=== PATIENT | male | born 1955 | race Caucasian/White ===

== ENCOUNTER → 2016-10-18 | Outpatient (CLI) | payer OTHER ==
[~2016-10-18] VITALS: Ht 162.6 cm; Wt 70.3 kg
[~2016-10-18] MED LIST: /TAMS4CA; ASPI1TAB24 PO; ASPI81TA3; ATOR40TA PO; AVOD0.5C; LEVA250T; LIDOCAINE 2% INJ 100 MG/5 ML SDV (FOR ANES.) As Ordered ONE; MULT1TAB10 PO; NITR0.4S14 SL; NS 1,000 ML IV SCH; PLAV75TA PO; PROPOFOL 200 MG/20 ML VIAL As Ordered ONE; SAW450CA7 PO
--- NOTE | 2016-10-18 08:17 | ROOR ---
Patient Name: Vasiliy Waite Procedure Date: 10/18/2016 7:50 AM Date of : 1955 Age: 61 Room: [facility] Gender: Male Note Status: Finalized Procedure: Colonoscopy Indications: High risk colon cancer surveillance: Personal history of colonic polyps, Last colonoscopy: June 2013 Providers: Gal MCKEON MD Referring MD: Waqar Del Angel MD Requesting Provider: Medicines: Monitored Anesthesia Care Complications: No immediate complications. Procedure: Pre-Anesthesia Assessment: - The heart rate, respiratory rate, oxygen saturations, blood pressure, adequacy of pulmonary ventilation, and response to care were monitored throughout the procedure. The Colonoscope was introduced through the anus and advanced to the terminal ileum, with identification of the appendiceal orifice and IC valve. The colonoscopy was performed without difficulty. The patient tolerated the procedure well. The quality of the bowel preparation was good. Findings: The perianal and digital rectal examinations were normal. (Exam: Complete, Prep: Good or Excellent.) Two sessile polyps were found in the sigmoid colon and at the splenic flexure. The polyps were diminutive in size. These polyps were removed with a cold snare. Resection and retrieval were complete. Multiple medium-mouthed diverticula were found in the sigmoid colon. Internal hemorrhoids were found during retroflexion. The hemorrhoids were moderate. The exam was otherwise without abnormality. Impression: - Two diminutive polyps in the sigmoid colon and at the splenic flexure, removed with a cold snare. Resected and retrieved. - Diverticulosis in the sigmoid colon. - Internal hemorrhoids. - The examination was otherwise normal. Recommendation: - Repeat colonoscopy in 5 years for surveillance. - Resume Plavix (clopidogrel) at prior dose today. Gal Mckeon MD Gal MCKEON MD 10/18/2016 8:16:48 AM This report has been signed electronically. Number of Addenda: 0 Note Initiated On: 10/18/2016 7:50 AM Estimated Blood Loss: Estimated blood loss: none.
[2016-10-18 08:56] VITALS: BP 124/72
== END | disposition home or self-care (01) ==
LOC: M OPP 07:12
PROVIDERS: ATTEND Internal Medicine Gastroenterology
DX: Z12.11 Encounter for screening for malignant neoplasm of colon (principal); D12.5 Benign neoplasm of sigmoid colon; D12.3 Benign neoplasm of transverse colon; K57.30 Diverticulosis of large intestine without perforation or abscess without bleeding; Z79.82 Long term (current) use of aspirin; Z79.899 Other long term (current) drug therapy

== ENCOUNTER → 2017-04-07 | Outpatient (REF) | payer OTHER ==
[~2017-04-07] MED LIST changes: -LIDOCAINE 2% INJ 100 MG/5 ML SDV (FOR ANES.) As Ordered ONE; -NS 1,000 ML IV SCH; -PLAV75TA PO; +PLAV75TA38 PO; -PROPOFOL 200 MG/20 ML VIAL As Ordered ONE
== END ==
LOC: M LAB REF 09:30
DX: N39.0 Urinary tract infection, site not specified (principal)

== ENCOUNTER → 2017-05-01 | Outpatient (REF) | payer OTHER ==
[~2017-05-01] MED LIST changes: +ASPI-161 PO; -ASPI1TAB24 PO; -ATOR40TA PO; +ATOR40TA75 PO; +PLAV1TAB2 PO; -PLAV75TA38 PO; +SAW450CA2 PO; -SAW450CA7 PO
[2017-05-01 12:15] LABS: MEAN CORPUSCULAR HEMOGLOBIN 31.5 pg (27.0-33.0); MEAN CORPUSCULAR HGB CONC 33.4 g/dl (32.0-36.5); MEAN CORPUSCULAR VOLUME 94.3 fl (80.0-96.0); RED CELL DISTRIBUTION WIDTH 12.8 % (11.5-14.5); WHITE BLOOD COUNT 4.5 K/mm3 (4.0-10.0)
[2017-05-01 13:21] LABS: ALBUMIN 3.6 GM/DL (3.2-5.2); ALBUMIN/GLOBULIN RATIO 1.44 (1.00-1.93); ALKALINE PHOSPHATASE 60 U/L (45-117); ALT/SGPT 30 U/L (12-78); ANION GAP 7 MEQ/L (8-16); AST/SGOT 21 U/L (15-37); BILIRUBIN,TOTAL 0.5 MG/DL (0.2-1.0); BLOOD UREA NITROGEN 16 MG/DL (7-18); CALCIUM LEVEL 8.8 MG/DL (8.8-10.2); CARBON DIOXIDE LEVEL 28 MEQ/L (21-32); CHLORIDE LEVEL 109 MEQ/L (98-107); CHOLESTEROL LEVEL 107 MG/DL (<200); CREATININE FOR GFR 1.02 MG/DL (0.70-1.30); GLOMERULAR FILTRATION RATE > 60.0 (>49); GLUCOSE, FASTING 101 MG/DL (80-110); POTASSIUM SERUM 4.5 MEQ/L (3.5-5.1); SODIUM LEVEL 144 MEQ/L (136-145); TOTAL PROTEIN 6.1 GM/DL (6.4-8.2); TRIGLYCERIDES LEVEL 39 MG/DL (<150)
== END ==
LOC: M SFHCPLAZ 08:32
PROVIDERS: ATTEND Internal Medicine
DX: I25.10 Atherosclerotic heart disease of native coronary artery without angina pectoris (principal); E78.2 Mixed hyperlipidemia

== ENCOUNTER → 2017-05-01 | Outpatient (REF) | payer OTHER | LOC: M LABDRAWP 12:16 | PROVIDERS: ATTEND Urology | DX: N40.1 Benign prostatic hyperplasia with lower urinary tract symptoms (principal) ==

== ENCOUNTER → 2017-08-01 | Outpatient (REF) | payer OTHER | LOC: M LABDRAWC 11:16 | PROVIDERS: ATTEND Urology | DX: R97.20 Elevated prostate specific antigen [PSA] (principal) ==

== ENCOUNTER → 2018-05-13 | Outpatient (REF) | payer MEDICARE, OTHER ==
[2018-05-13 11:41] LABS: HEMATOCRIT 39.4 % (42.0-52.0); HEMOGLOBIN 13.1 g/dl (13.5-17.5); MEAN CORPUSCULAR HEMOGLOBIN 31.2 pg (27.0-33.0); MEAN CORPUSCULAR HGB CONC 33.2 g/dl (32.0-36.5); MEAN CORPUSCULAR VOLUME 93.8 fl (80.0-96.0); PLATELET COUNT, AUTOMATED 167 10^3/uL (150-450); RED CELL DISTRIBUTION WIDTH 13.2 % (11.5-14.5); WHITE BLOOD COUNT 7.9 10^3/uL (4.0-10.0)
[2018-05-13 11:58] LABS: ALBUMIN 3.4 GM/DL (3.2-5.2); ALBUMIN/GLOBULIN RATIO 1.17 (1.00-1.93); ALKALINE PHOSPHATASE 57 U/L (45-117); ALT/SGPT 25 U/L (12-78); ANION GAP 6 MEQ/L (8-16); AST/SGOT 17 U/L (7-37); BILIRUBIN,TOTAL 0.7 MG/DL (0.2-1.0); BLOOD UREA NITROGEN 17 MG/DL (7-18); CALCIUM LEVEL 8.3 MG/DL (8.8-10.2); CARBON DIOXIDE LEVEL 28 MEQ/L (21-32); CHLORIDE LEVEL 110 MEQ/L (98-107); CHOLESTEROL LEVEL 115 MG/DL (<200); CHOLESTEROL RISK RATIO 1.982 (<5); CREATININE FOR GFR 0.87 MG/DL (0.70-1.30); GLOMERULAR FILTRATION RATE > 60.0 (>49); GLUCOSE, FASTING 94 MG/DL (70-100); HDL CHOLESTEROL 58 MG/DL (>40); NON-HDL-C 57 MG/DL; POTASSIUM SERUM 4.3 MEQ/L (3.5-5.1); SODIUM LEVEL 144 MEQ/L (136-145); TOTAL PROTEIN 6.3 GM/DL (6.4-8.2); TRIGLYCERIDES LEVEL 45 MG/DL (<150)
== END ==
LOC: M SFHCCLAY 07:52
DX: N41.1 Chronic prostatitis (principal); I25.10 Atherosclerotic heart disease of native coronary artery without angina pectoris; E78.2 Mixed hyperlipidemia; R97.20 Elevated prostate specific antigen [PSA]
CPT/HCPCS: 80053

== ENCOUNTER → 2018-05-13 | Outpatient (REF) | payer MEDICARE, OTHER ==
[2018-05-13 12:04] LABS: PROSTATIC SPECIFIC AG MONITOR 2.91 NG/ML (< 4.0)
== END ==
LOC: M LABDRAWC 11:32
DX: R97.20 Elevated prostate specific antigen [PSA] (principal)

== ENCOUNTER → 2019-05-11 | Outpatient (REF) | payer MEDICARE, OTHER ==
[~2019-05-11] MED LIST changes: -/TAMS4CA; +FLOM0.4C39
[2019-05-11 11:29] LABS: HEMATOCRIT 43.2 % (42.0-52.0); HEMOGLOBIN 13.8 g/dl (13.5-17.5); MEAN CORPUSCULAR HEMOGLOBIN 30.5 pg (27.0-33.0); MEAN CORPUSCULAR HGB CONC 31.9 g/dl (32.0-36.5); MEAN CORPUSCULAR VOLUME 95.6 fl (80.0-96.0); PLATELET COUNT, AUTOMATED 195 10^3/uL (150-450); RED BLOOD COUNT 4.52 10^6/uL (4.30-6.10); WHITE BLOOD COUNT 4.7 10^3/uL (4.0-10.0)
[2019-05-11 11:38] LABS: ALBUMIN 3.7 GM/DL (3.2-5.2); ALT/SGPT 26 U/L (12-78); BILIRUBIN,TOTAL 0.5 MG/DL (0.2-1.0); BLOOD UREA NITROGEN 22 MG/DL (7-18); CALCIUM LEVEL 8.8 MG/DL (8.8-10.2); CARBON DIOXIDE LEVEL 31 MEQ/L (21-32); CHLORIDE LEVEL 109 MEQ/L (98-107); CHOLESTEROL LEVEL 126 MG/DL (<200); CHOLESTEROL RISK RATIO 2.172 (<5); GLOMERULAR FILTRATION RATE > 60.0 (>49); GLUCOSE, FASTING 102 MG/DL (70-100); HDL CHOLESTEROL 58 MG/DL (>40); LDL CHOLESTEROL 60 MG/DL (<100); MAGNESIUM LEVEL 2.4 MG/DL (1.8-2.4); NON-HDL-C 68 MG/DL; POTASSIUM SERUM 5.1 MEQ/L (3.5-5.1); SODIUM LEVEL 143 MEQ/L (136-145); TOTAL PROTEIN 6.4 GM/DL (6.4-8.2); TRIGLYCERIDES LEVEL 40 MG/DL (<150)
== END ==
LOC: M SFHCCLAY 07:41
PROVIDERS: ATTEND Internal Medicine
DX: N41.1 Chronic prostatitis (principal); I25.10 Atherosclerotic heart disease of native coronary artery without angina pectoris; E78.2 Mixed hyperlipidemia; R97.20 Elevated prostate specific antigen [PSA]

== ENCOUNTER → 2019-05-11 | Outpatient (REF) | payer MEDICARE, OTHER | LOC: M LABDRAWC 11:27 | PROVIDERS: ATTEND Urology | DX: R97.20 Elevated prostate specific antigen [PSA] (principal) ==

== ENCOUNTER → 2020-05-18 | Outpatient (REF) | payer MEDICARE, OTHER | LOC: M LABDRAWC 09:36 | PROVIDERS: ATTEND Urology | DX: R97.20 Elevated prostate specific antigen [PSA] (principal) ==

== ENCOUNTER → 2020-05-23 | Outpatient (REF) | payer MEDICARE, OTHER ==
[2020-06-25 11:10] LABS: BASO # 0.1 10^3/uL (0.0-0.2); BASO % 0.6 % (0.0-1.0); EOS # 0.3 10^3/uL (0.0-0.5); EOS % 3.3 % (0.0-3.0); HEMATOCRIT 39.6 % (42.0-52.0); HEMOGLOBIN 13.5 g/dl (13.5-17.5); LYMPH # 2.3 10^3/uL (1.5-5.0); LYMPH % 23.4 % (24.0-44.0); MEAN CORPUSCULAR HEMOGLOBIN 32.9 pg (27.0-33.0); MEAN CORPUSCULAR HGB CONC 34.1 g/dl (32.0-36.5); MEAN CORPUSCULAR VOLUME 96.6 fl (80.0-96.0); NEUTROPHILS % 62.1 % (36.0-66.0); PLATELET COUNT, AUTOMATED 277 10^3/uL (150-450); WHITE BLOOD COUNT 9.6 10^3/uL (4.0-10.0)
[2020-07-07 15:03] LABS: ALBUMIN 3.8 GM/DL (3.2-5.2); ALT/SGPT 30 U/L (12-78); BILIRUBIN,TOTAL 0.6 MG/DL (0.2-1.0); BLOOD UREA NITROGEN 20 MG/DL (7-18); CARBON DIOXIDE LEVEL 28 MEQ/L (21-32); CHLORIDE LEVEL 110 MEQ/L (98-107); CHOLESTEROL LEVEL 136 MG/DL (<200); CHOLESTEROL RISK RATIO 2.229 (<5); CREATININE FOR GFR 0.99 MG/DL (0.70-1.30); GLOMERULAR FILTRATION RATE > 60.0 (>49); GLUCOSE, FASTING 84 MG/DL (70-100); HDL CHOLESTEROL 61 MG/DL (>40); LDL CHOLESTEROL 66 MG/DL (<100); NON-HDL-C 75 MG/DL; POTASSIUM SERUM 4.8 MEQ/L (3.5-5.1); SODIUM LEVEL 143 MEQ/L (136-145); TOTAL PROTEIN 6.5 GM/DL (6.4-8.2); TRIGLYCERIDES LEVEL 43 MG/DL (<150)
== END ==
LOC: M SFHCPLAZ 16:25
PROVIDERS: ATTEND Internal Medicine
DX: E78.2 Mixed hyperlipidemia (principal); I25.10 Atherosclerotic heart disease of native coronary artery without angina pectoris; Z86.010 Personal history of colon polyps
CPT/HCPCS: 36415; 80053; 80061; 84443; 85025; G0463

== ENCOUNTER → 2020-12-05 | Outpatient (REF) | payer MEDICARE, OTHER ==
[2020-12-05 16:32] LABS: APPEARANCE, URINE CLOUDY (CLEAR); BACTERIA, URINE AUTO 2+ (NEGATIVE); BILIRUBIN, URINE AUTO NEGATIVE (NEGATIVE); BLOOD, URINE BLOOD 1+ (NEGATIVE); COLOR, URINE AMBER (YELLOW); GLUCOSE, URINE (UA) AUTO NEGATIVE (NEGATIVE); KETONE, URINE AUTO NEGATIVE (NEGATIVE); LEUKOCYTE ESTERASE, URINE AUTO 3+ (NEGATIVE); MUCUS, URINE SMALL (NEGATIVE); NITRITE, URINE AUTO POSITIVE (NEGATIVE); PROTEIN, URINE AUTO 3+ mg/dL (NEGATIVE); RBC, URINE AUTO 17 /HPF (0-3); SPECIFIC GRAVITY URINE AUTO 1.024 (1.002-1.035); SQUAMOUS EPITHELIAL CELL UR AU 0 /HPF (0-6); UROBILINOGEN, URINE AUTO 0.2 mg/dL (0.0-2.0); WBC, URINE AUTO 125 /HPF (0-3)
== END ==
LOC: M SFHCPLAZ 10:58
PROVIDERS: ATTEND Internal Medicine
DX: R30.0 Dysuria (principal)

== ENCOUNTER → 2021-05-15 | Outpatient (REF) | payer MEDICARE, OTHER ==
[~2021-05-15] MED LIST changes: +AMLO2.5T3 PO
[2021-05-15 12:17] LABS: BASO % 0.2 % (0.0-1.0); EOS # 0.1 10^3/uL (0.0-0.5); HEMATOCRIT 42.8 % (42.0-52.0); HEMOGLOBIN 14.2 g/dl (13.5-17.5); LYMPH # 1.5 10^3/uL (1.5-5.0); LYMPH % 29.9 % (24.0-44.0); MEAN CORPUSCULAR HEMOGLOBIN 30.9 pg (27.0-33.0); MEAN CORPUSCULAR HGB CONC 33.2 g/dl (32.0-36.5); MEAN CORPUSCULAR VOLUME 93.2 fl (80.0-96.0); MONO # 0.4 10^3/uL (0.0-0.8); MONO % 8.7 % (2.0-8.0); PLATELET COUNT, AUTOMATED 215 10^3/uL (150-450); RED BLOOD COUNT 4.59 10^6/uL (4.30-6.10); WHITE BLOOD COUNT 4.9 10^3/uL (4.0-10.0)
[2021-05-15 12:45] LABS: ALBUMIN 3.8 GM/DL (3.2-5.2); ALT/SGPT 26 U/L (12-78); BILIRUBIN,TOTAL 0.6 MG/DL (0.2-1.0); BLOOD UREA NITROGEN 21 MG/DL (7-18); CARBON DIOXIDE LEVEL 25 MEQ/L (21-32); CHLORIDE LEVEL 111 MEQ/L (98-107); CHOLESTEROL LEVEL 144 MG/DL (<200); CHOLESTEROL RISK RATIO 2.285 (<5); CREATININE FOR GFR 0.74 MG/DL (0.70-1.30); GLOMERULAR FILTRATION RATE > 60.0 (>49); GLUCOSE, FASTING 99 MG/DL (70-100); HDL CHOLESTEROL 63 MG/DL (>40); LDL CHOLESTEROL 69 MG/DL (<100); MAGNESIUM LEVEL 2.4 MG/DL (1.8-2.4); NON-HDL-C 81 MG/DL; SODIUM LEVEL 143 MEQ/L (136-145); TOTAL PROTEIN 6.5 GM/DL (6.4-8.2); TRIGLYCERIDES LEVEL 59 MG/DL (<150)
== END ==
LOC: M SFHCCLAY 08:04
PROVIDERS: ATTEND Internal Medicine
DX: I25.10 Atherosclerotic heart disease of native coronary artery without angina pectoris (principal); E78.2 Mixed hyperlipidemia; Z86.010 Personal history of colon polyps

== ENCOUNTER → 2021-05-15 | Outpatient (REF) | payer MEDICARE, OTHER ==
[~2021-05-15] MED LIST changes: -AMLO2.5T3 PO
== END ==
LOC: M LABDRAWC 11:16
PROVIDERS: ATTEND Urology
DX: Z12.5 Encounter for screening for malignant neoplasm of prostate (principal); E78.00 Pure hypercholesterolemia, unspecified
CPT/HCPCS: 36415; 80053; 80061; 83735; 85025; G0103

== ENCOUNTER → 2021-06-14 | Outpatient (REF) | payer MEDICARE, OTHER ==
[~2021-06-14] MED LIST changes: +AMLO2.5T3 PO
== END ==
LOC: M LABDRAWC 10:11
PROVIDERS: ATTEND Urology
DX: R97.20 Elevated prostate specific antigen [PSA] (principal)

== ENCOUNTER → 2021-07-24 | Outpatient (CLI) | payer MEDICARE, OTHER ==
[~2021-07-24] MED LIST changes: -AMLO2.5T3 PO
--- NOTE | 2021-07-24 09:23 | REP ---
INDICATION: FUSION 1ST MTP R FOOT COMPARISON: 02/12/2014 TECHNIQUE: PA and lateral. FINDINGS: The mediastinum and cardiac silhouette are normal. The lung cardozo are clear and without acute consolidation, effusion, or pneumothorax. The skeletal structures are intact and normal. IMPRESSION: No acute cardiopulmonary process. <Electronically signed by Adalberto Neff > 07/24/21 0919
[2021-07-24 11:59] LABS: BASO % 0.2 % (0.0-1.0); EOS # 0.1 10^3/uL (0.0-0.5); EOS % 1.3 % (0.0-3.0); HEMATOCRIT 42.2 % (42.0-52.0); HEMOGLOBIN 13.6 g/dl (13.5-17.5); LYMPH # 1.5 10^3/uL (1.5-5.0); LYMPH % 28.4 % (24.0-44.0); MEAN CORPUSCULAR HEMOGLOBIN 31.1 pg (27.0-33.0); MEAN CORPUSCULAR HGB CONC 32.2 g/dl (32.0-36.5); MEAN CORPUSCULAR VOLUME 96.6 fl (80.0-96.0); MONO # 0.4 10^3/uL (0.0-0.8); MONO % 7.1 % (2.0-8.0); NEUTROPHILS # 3.3 10^3/uL (1.5-8.5); NEUTROPHILS % 62.6 % (36.0-66.0); PLATELET COUNT, AUTOMATED 223 10^3/uL (150-450); RED BLOOD COUNT 4.37 10^6/uL (4.30-6.10); WHITE BLOOD COUNT 5.2 10^3/uL (4.0-10.0)
[2021-07-24 13:06] LABS: ALBUMIN 3.5 GM/DL (3.2-5.2); ALT/SGPT 36 U/L (12-78); BILIRUBIN,TOTAL 0.5 MG/DL (0.2-1.0); BLOOD UREA NITROGEN 20 MG/DL (7-18); CALCIUM LEVEL 9.1 MG/DL (8.8-10.2); CARBON DIOXIDE LEVEL 30 MEQ/L (21-32); CHLORIDE LEVEL 109 MEQ/L (98-107); CREATININE FOR GFR 0.99 MG/DL (0.70-1.30); GLOMERULAR FILTRATION RATE > 60.0 (>49); GLUCOSE, FASTING 91 MG/DL (70-100); POTASSIUM SERUM 4.1 MEQ/L (3.5-5.1); SODIUM LEVEL 143 MEQ/L (136-145); TOTAL PROTEIN 6.3 GM/DL (6.4-8.2)
== END ==
LOC: M CLY 08:50
PROVIDERS: ATTEND Podiatrist
DX: Z01.818 Encounter for other preprocedural examination (principal); M20.21 Hallux rigidus, right foot; M79.671 Pain in right foot

== ENCOUNTER → 2021-07-30 | Outpatient (CLI) | payer MEDICARE, OTHER ==
[~2021-07-30] MED LIST changes: +AMLO2.5T3 PO
== END ==
LOC: M LABSMTC 09:18
PROVIDERS: ATTEND Anesthesiology
DX: Z01.818 Encounter for other preprocedural examination (principal); Z11.52 Encounter for screening for COVID-19

== ENCOUNTER → 2021-08-01 | Outpatient (REF) | payer MEDICARE, OTHER | LOC: M LABDRAWC 11:20 | PROVIDERS: ATTEND Physician Assistant | DX: R97.20 Elevated prostate specific antigen [PSA] (principal) ==

== ENCOUNTER 2021-08-03 08:32 | Day surgery (SDC) | payer MEDICARE, OTHER ==
[~2021-08-03] VITALS: Ht 162.6 cm; Wt 76.7 kg
[~2021-08-03 08:32] MED LIST changes: +KETOROLAC 60MG 2ML VIAL As Ordered ONE; +LIDOCAINE 1% MDV 20ML VIAL SQ PRN; +LIDOCAINE 2% 100MG/5ML SDV (FOR ANES.) As Ordered ONE; +LR 1,000 ML IV ONE; +MIDAZOLAM INJ 2MG/2ML VIAL (J2250 PER 1MG) As Ordered ONE; +ONDANSETRON 4MG/2ML VIAL As Ordered ONE; +ceFAZolin SOD 2 GM in IV 1 EA IV ONE; +fentaNYL 100 MCG/2 ML INJECTION (J3010) As Ordered ONE; +propofoL 200 MG/20 ML VIAL As Ordered ONE
--- OUTSIDE RECORDS SUMMARY | 2021-08-03 08:36 | CCD ---
Author Author [employer] [facility] Organization [facility] Address Unknown Phone Unavailable Care Team Providers Care Commission Specialist Name Role Phone Kali Whitlock Unavailable PROBLEMS Type Condition ICD9-CM Code [id number] Code Onset Dates Condition S tatus W/U Status Risk SNOMED Code Notes Problem Chronic prostatitis N41.1 Active confirmed [id number] This is followed by a urologist. Had an Enterococcus faecalis UTI in 06/2012. He had a cystoscopy in 02/2017. He is on Rapaflo now. He has an upcoming urology visit in May 2021. His PSA is intermittently elevated likely because of his episodic prostatitis, most recently over 3 in May 2021. Problem Mixed hyperlipidemia E78.2 Active confirmed [id number] He has been on a statin since his RI in 02/2014. Lipids were optimal in May 2021. He is on a moderately high intensity statin. Problem History of adenomatous polyp of colon Z86.010 Ac tive confirmed [id number] He had a colonoscopy in June 2013 and in 10/2016. Had an adenomatous polyp each time. Problem CAD (coronary artery disease) I25.10 Active confirm ed [id number] Patient had an anterior wall myocardial infarction 02/2014 which was successfully treated with thrombolytic therapy. He has had 2 LAD drug eluting stents placed in a 99% proximal lesion and a 60% ostial lesion. There was minor disease in the circumflex and PDA. Left ventricular ejection fraction was 40% with some anterior hypokinesis at the time of his catheterization February 14, 2014. He had a cardiac catheterization for a left arm pain in 12/2020--no intervention done and he had amlodipine added to his regimen. He had a followup stress test after the heart cath, results, N/A; prior stress test was in 11/2015 and revealed a left ventricle ejection fraction of 51% with minimal if any reversible ischemia. He has no residual angina and is now on aspirin, statin therapy and ARB theraoy, appropriately; his beta josr was stopped in 08/2015 due to low heart rate, and Plavix was stopped in Spring 2016. ALLERGIES Allergen (clinical drug ingredient) Drug/Non Drug Allergy do cumented on EMR Reaction Allergy Type Onset Date Status sulfamethoxazole / trimethoprim Bactrim([facility] Code:[address]-48) Anaphylaxis Drug Allergy Active ENCOUNTERS from 1955 to 2021-07-24 Encounter Location Date Provider Diagnosis [facility] Franky Mojica [phone] [place] [address] 08 Jul, 2021 Kali Huizenga Cough R05.9 and Acute non-recurrent maxi llary sinusitis J01.00 IMMUNIZATIONS Vaccine Route Administration Date Status Influenza 18 yrs & older Flublok IM Intramuscular Jul 19, 2020 Administered Zoster 50mcg/0.5mL Shingrix Unknown Dec 01, 2019 Admi nistered Zoster 50mcg/0.5mL Shingrix Unknown Aug 04, 2019 Admi nistered Influenza (High Dose 65 & up) Unknown Jul 25, 2018 Ad ministered Zoster 0.65mL Zostavax Unknown February 18, 2017 Administe red Pneumococcal Adult 0.5mL Pneumovax 23 IM Intramuscular May 19 019 Administered Influenza Pharmacy Given Unknown Aug 04, 2019 Adminis tered Pneumococcal 0.5mL Prevnar 13 IM Intramuscular May 18, 2018 A dministered COVID-19 dose #1 given elsewhere Unspecified Unknown Nov 11, 2020 Administered Influenza 6mo & up Fluzone Unknown Jul 22, 2017 Admin istered COVID-19 dose #2 given elsewhere Unspecified Unknown Dec 02, 2020 Administered Influenza 6mo & up Fluzone Unknown Jul 15, 2015 Admin istered SOCIAL HISTORY Tobacco Use: Social History Observation Description Date Details (start date - stop date) Never Smoker Sex Assigned At : Social History Observation Description Sex Assigned At Unknown Audit Question Answer Notes Total Score: 0 Interpretation: Alcohol Education Domestic Violence: Question Answer Notes Status: Sexual Hx: Question Answer Notes Had sex in the last 12 months (vaginal, oral, or anal)? Yes Have you ever had an STD? No with Women only Drug and Alcohol Question Answer Notes Total Score: 0 Interpretation: No problems reported Tobacco Use: Question Answer Notes Are you a: never smoker never smoker REASON FOR REFERRAL No Information VITAL SIGNS Weight 169.8 lbs Jul, Weight-kg 77.02 kg Jul, Height 64.5 in Jul, BMI 28.69 kg/m2 Jul, Heart Rate 54 /min Jul, Respiratory Rate 16 /min Jul, Temperature 98.3 degrees Fahrenheit Jul, Oximetry 98ra Jul, Blood pressure systolic 128 mm Hg Jul, Blood pressure diastolic 68 mm Hg Jul, MEDICATIONS Medication SIG (Take, Route, Frequency, Duration) Notes Start Da te End Date Status amLODIPine Besylate 2.5 MG 1 tablet Orally Daily Active Amoxicillin 875 MG 1 tablet Orally Twice a day for 10 day(s) Jul, Active Probiotic - 1 tab Orally Daily Activ e Nitroglycerin 0.4 MG 1 spray under the tongue Sub lingual every 5 mins for 3 doses as needed for chest pain A ctive Benzonatate 100 MG 1 capsule as needed Orally Three times a day for 10 day(s) Jul, Active Lipitor 40 mg 1 tablet Orally Once a day Active Aspirin 81 MG 1 tablet Orally Once a day Active Rapaflo 8 MG 1 capsule with a meal Orally Once a day Active Multiple Vitamin _ 1 tablet Orally Once a day Active PROCEDURES No Information RESULTS Component Value Reference Range Kii[facility] AG (Point of Care) Reviewed date:07/20/2021 12:53:13 Interpretation: Performing Lab:[facility] [place], [place] [address] MARCELINA COVID ANTIGEN negative REASON FOR VISIT Patient c/o watery eyes, sinus congestion x 3 days- denies fever. Patient has up coming surgery in a few weeks and is concerned. No known sick contacts, he has h ad Covid vaccine and is scheduled to get booster next week MEDICAL (GENERAL) HISTORY Type Description Date Medical History CAD (coronary artery disease) Medical History Chronic prostatitis Medical History History of adenomatous polyp of colon Medical History Mixed hyperlipidemia Surgical History TURP 03/2008 Surgical History Left foot surgery, 1st MTP joint 12/2009 Surgical History Colonoscopy 06/2013 Surgical History Coronary artery stent placem ent x2, after reperfusion therapy following RI 02/2014 Surgical History Colonoscopy with polypectomy 10/2016 Surgical History Cystoscopy-AMP Urology 02/2017 Surgical History Cardiac catheterization with no interven tion 12/2020 Goals Section No Information Health Concerns No Information MEDICAL EQUIPMENT No Information MENTAL STATUS No Information FUNCTIONAL STATUS No Information ASSESSMENTS Encounter Date Diagnosis Assessment Notes Treatment Notes Treatm ent Clinical Notes Jul, Acute non-recurrent maxillary sinusitis (ICD-10 - J01.00) Jul, Cough (ICD-10 - R05.9) Negative so will tx symptomatically. Pt is agreeable. PLAN OF TREATMENT Medication Medication Name Sig Start Date Stop Date Amoxicillin 875 MG 1 tablet Orally Twice a day for 10 day(s) Jul, Benzonatate 100 MG 1 capsule as needed Orally Three times a day for 10 day(s) Jul, Treatment Notes Assessment Notes Clinical Notes Cough Negative so will tx symptomatically. Pt is agreeable. Next Appt Details prn Reason: Insurance Providers Payer Name Payer Address Payer Phone Insured Name Patient Relati onship to Insured Coverage Start Date Coverage End Date [facility] [address] [address] [facility] [phone] VIKA MONSIVAIS [id number] MEDICARE Part A and B [address] [facility] [address] [phone] VIKA MONSIVAIS self
--- OUTSIDE RECORDS SUMMARY | 2021-08-03 08:36 | CCD ---
Author Author [employer] [facility] Organization [facility] Address Unknown Phone Unavailable Care Team Providers Care Nitro Worker Name Role Phone Waqar Del Angel Unavailable PROBLEMS Type Condition ICD9-CM Code [id number] Code Onset Dates Condition S tatus W/U Status Risk SNOMED Code Notes Problem Chronic prostatitis N41.1 Active confirmed [id number] This is followed by a urologist. Had an Enterococcus faecalis UTI in 06/2012. He had a cystoscopy in 02/2017. He is on Rapaflo now. He has an upcoming urology visit in May 2021. His PSA is intermittently elevated likely because of his episodic prostatitis, most recently over 3 in May 2021. Problem Mixed hyperlipidemia E78.2 Active confirmed [id number] He has been on a statin since his [place] in 02/2014. Lipids were optimal in May 2021. He is on a moderately high intensity statin. Problem History of adenomatous polyp of colon Z86.010 Ac tive confirmed [id number] He had a colonoscopy in June 2013 and in 10/2016. Had an adenomatous polyp each time. Problem CAD (coronary artery disease) I25.10 Active confirm ed [id number] Patient had an anterior wall myocardial infarction [...] Plavix was stopped in Spring 2016. ALLERGIES No Known Allergies ENCOUNTERS from 1955 to 2021-07-20 Encounter Location Date Provider Diagnosis [facility] [address] [facility] [phone] [place] [address] Jul, 2021 Waqar [facility] IMMUNIZATIONS Vaccine Route Administration Date Status Influenza [...] REASON FOR REFERRAL No Information VITAL SIGNS No information MEDICATIONS Medication SIG (Take, Route, Frequency, Duration) Notes Start Da te End Date Status Nitroglycerin 0.4 MG 1 spray under the tongue Sub lingual every 5 mins for 3 doses as needed for chest pain A ctive Rapaflo 8 MG 1 capsule with a meal Orally Once a day Active Aspirin 81 MG 1 tablet Orally Once a day Active Multiple Vitamin _ 1 tablet Orally Once a day Active amLODIPine Besylate 2.5 MG 1 tablet Orally Daily Active Probiotic - 1 tab Orally Daily Activ e Lipitor 40 mg 1 tablet Orally Once a day Active PROCEDURES No Information RESULTS No Results REASON FOR VISIT head cold MEDICAL (GENERAL) HISTORY Type Description Date Medical History CAD (coronary artery disease) Medical History Chronic prostatitis Medical History History of adenomatous polyp of colon Medical History Mixed hyperlipidemia Surgical History TURP 03/2008 Surgical History Left foot surgery, 1st MTP joint 12/2009 Surgical History Colonoscopy 06/2013 Surgical History Coronary artery stent placem ent x2, after reperfusion therapy following MA 02/2014 Surgical History Colonoscopy with polypectomy 10/2016 Surgical History Cystoscopy-AMP Urology 02/2017 Surgical History Cardiac catheterization with no interven tion 12/2020 Goals Section No Information Health Concerns No Information MEDICAL EQUIPMENT No Information MENTAL STATUS No Information FUNCTIONAL STATUS No Information ASSESSMENTS No Information PLAN OF TREATMENT Next Appt Details Provider Name:Kaligael Whitlock, 10:30:00 AM, [address] , , [place], [address], Insurance Providers Payer Name Payer Address Payer Phone Insured Name Patient Relati onship to Insured Coverage Start Date Coverage End Date MEDICARE Part A and B [address] [facility] [phone] VIKA MONSIVAIS [facility] [address] [address] [facility] [phone] VIKA MONSIVAIS [id number]
--- OUTSIDE RECORDS SUMMARY | 2021-08-03 08:36 | CCD | Continuity of Care Document ---
Author Author Vasiliy BARAKAT [place] Organization Unknown Address [address] [place] [address] DR. Sudha green [address] [place] [address] Phone [phone] Care Team Providers Care Sander And Polisher Name Role Phone Waqar Del Angel M.D. AUTM [phone] Problems Active Problems Provider Date Benign prostatic hyperplasia with outflow obstruction Ilan Dyer MD Onset: 02/13/2012 Prostatitis Ilan Dyer MD Onset: 02/13/2012 Screening for malignant neoplasm of prostate Ilan rasmussen MD Onset: 02/13/2012 Retention of urine Ilan Dyer MD Onset: 02/19/2013 Urinary tract infectious disease Ilan Dyer MD Onse t: 02/20/2017 Raised prostate specific antigen Ilan Dyer MD Onse t: 05/13/2017 Nocturia Ilan Dyer MD Onset: 05/25/2019 Social History Type Date Description Comments Sex Male Tobacco Use Reviewed: 05/25/20 Never Smoked Cigarettes Smoking Status Reviewed: 07/06/21 Never Smoked Cigarettes ETOH Use Patient denies alcohol use Allergies and adverse reactions Active Allergies Criticality Reaction | Severity Comments Date Bactrim Unable to assess criticality Facial swelling | Moderat e 06/04/2021 Sulfa Unable to assess criticality Facial swel ling, cause tongue & mouth to swell 07/06/2021 Inactive Allergies NKDA Unable to assess criticality 01/08/2011 Medications Active Medications SIG Qnty Indications Ordering Provide r Date Ciprofloxacin HCL 250mg Tablets 1 by mouth twice a day x 10 days 20tabs N41.9 Ilan Dyer MD Silodosin 8mg Capsules Take 1 Capsule Daily After Dinner 90caps SRAVANTHI Escamilla 05/22/2020 Probiotic Daily Capsules 1 by mouth every day 30caps Z87.440 Maurice Ugalde MD 7 Multivitamins Tablets daily Unknown Aspirin 81mg Tablets daily 30tabs Unknown Atorvastatin Calcium 40mg Tablets qd Unknown Nitroglycerin 0.4mg sublingu al prn Unknown Amlodipine Besylate 2.5mg Tablets qd Unknown History Medications Cephalexin 250mg Capsules take 1 capsule (250 mg total) by mouth 2 times a day for 7 days 14caps Ilan Dyer MD 06/04/2021 - 06/19/2021 Bactrim DS 800-160mg Tablets 1 by mouth twice a day 14tabs Ilan Dyer MD 1 - 06/04/2021 Immunizations Description No Information Available Vital Signs Date Vital Result Comment 07/06/2021 1:16pm Height 64 inches 5'4" Weight 160.00 lb Weight 72.576 kg BMI (Body Mass Index) 27.5 kg/m2 BP Systolic 137 mmHg BP Diastolic 68 mmHg Heart Rate 58 /min Post Void Residual ml 297 Bladder Scanner 06/20/2021 10:03am Height 64 inches 5'4" Weight 160.00 lb Weight 72.576 kg BMI (Body Mass Index) 27.5 kg/m2 BP Systolic 137 mmHg BP Diastolic 81 mmHg Heart Rate 58 /min Results Test Acquired Date Facility Test Result H/L Range Note Laboratory test finding 07/06/2021 [facility] [address] [address] [phone] Urine Culture <pending> 230 Ua Routine 07/06/2021 [facility] REF TO DR ADDRESS ON ORDER FOR (411)- - Ua Glucose Negative Ua Protein Negative Ua Nitrite Negative Ua Leuko Negative Ua Blood Negative Ua Color Not Entered Ua Ketones Negative Ua Clarity Not Entered Ua Specific [place] 1.025 1.003-1.030 Ua PH 7.0 5.0-7.5 Ua Bilirubin Negative Ua Urobilinogen 0.2 E.U./dL 0.0-1.0 230 Ua Routine 06/20/2021 [facility] REF TO DR ADDRESS ON ORDER FOR (003)- - Ua Glucose Negative Ua Protein Negative Ua Nitrite Negative Ua Leuko Negative Ua Blood Negative Ua Color Not Entered Ua Ketones Negative Ua Clarity Not Entered Ua Specific [place] 1.020 1.003-1.030 Ua PH 6.0 5.0-7.5 Ua Bilirubin Negative Ua Urobilinogen 0.2 E.U./dL 0.0-1.0 Laboratory test finding 06/14/[address] [id number] [phone] Prostatic Specific Ag Monitor 3.31 NG/ML Normal < 4.00 1 Laboratory test finding 05/29/2021 Laboratory [facility] PO FX# [id number] [phone] Urine Culture SPECIMEN DESCRIP <SEE NOTE> 2 Standard UTI 05/29/2021 [facility] [place] Acinetobacter baumannii NOTDETECTED Normal Actinobaculum schaalii NOTDETECTED Normal Aerococcus urinae NOTDETECTED Normal Alloscardovia omnicolens NOTDETECTED Normal Shea albicans NOTDETECTED Normal Shea glabrata NOTDETECTED Normal Shea parapsilosis NOTDETECTED Normal Citrobacter amalonaticus NOTDETECTED Normal Citrobacter freundii NOTDETECTED Normal Citrobacter koseri NOTDETECTED Normal Corynebacterium riegelii NOTDETECTED Normal Corynebacterium urealyticum NOTDETECTED Normal Enterobacter aerogenes NOTDETECTED Normal Enterobacter cloacae NOTDETECTED Normal Enterococcus faecalis NOTDETECTED Normal Enterococcus faecium NOTDETECTED Normal Escherichia coli NOTDETECTED Normal Klebsiella oxytoca NOTDETECTED Normal Klebsiella pneumoniae NOTDETECTED Normal Morganella morganii NOTDETECTED Normal Mycobacterium tuberculosis NOTDETECTED Normal Mycoplasma genitalium NOTDETECTED Normal Mycoplasma hominis NOTDETECTED Normal Pantoea agglomerans NOTDETECTED Normal Proteus mirabilis NOTDETECTED Normal Providencia stuartii NOTDETECTED Normal Pseudomonas aeruginosa NOTDETECTED Normal Serratia marcescens NOTDETECTED Normal Staphylococcus aureus NOTDETECTED Normal Staphylococcus epidermidis NOTDETECTED Normal Staphylococcus haemolyticus NOTDETECTED Normal Staphylococcus lugdunenesis NOTDETECTED Normal Staphylococcus saprophyticus NOTDETECTED Normal Streptococcus agalactiae NOTDETECTED Normal Streptococcus oralis NOTDETECTED Normal Streptococcus pasteuranus NOTDETECTED Normal Streptococcus pyogenes NOTDETECTED Normal Ureaplasma urealyticum NOTDETECTED Normal Vancomycin Resistance NOTDETECTED Normal -lactamase (class D) NOTDETECTED Normal AmpC -lactamase (Class C) NOTDETECTED Normal Carbapenemase (Class A) NOTDETECTED Normal 3 Extended Spectrum -lactamase (Class A) NOTDETECTED Normal 4 Extended-Spectrum--Lactamase NOTDETECTED Normal 5 Macrolide Resistance NOTDETECTED Normal Quinolone Resistance NOTDETECTED Normal 6 blanca integron-encoded metallo--lactamase NOTDETECTED Normal 7 Pathology Report SEE IMAGE 230 Ua Routine 05/29/2021 [facility] REF TO DR ADDRESS ON ORDER FOR (315)- - Ua Glucose Negative Ua Protein Negative Ua Nitrite Negative Ua Leuko Moderate Ua Blood Negative Ua Color Not Entered Ua Ketones Negative Ua Clarity Not Entered Ua Specific [place] 1.015 1.003-1.030 Ua PH 7.0 5.0-7.5 Ua Bilirubin Negative Ua Urobilinogen 0.2 E.U./dL 0.0-1.0 Laboratory test finding 05/15/2021 [place] [id number] [phone] PSA Screening 3.37 NG/ML Normal < 4.00 8 1 The PSA assay is performed o n the Siemens [place] analyzer by [employer] sandwich chemiluminescent immunoassay and should not be compared interchangeably with other methods. It should not be used alone as a screening test or diagnosis for the presence or absence of malignant disease. Predictions of disease recurrence should not be based solely on values obtained from serial patient serum values. 2 SPECIMEN DESCRIPTION MIDSTREAM URINE,CLEAN CATCH CULTURE RESULTS NO GROWTH REPORT STATUS FINAL 05/30/2021 3 NOTDETECTED NOTDETECTED NOTDETECTED NOTDETECTED 4 NOTDETECTED 5 NOTDETECTED NOTDETECTED NOTDETECTED 6 NOTDETECTED 7 Electronically signed by : Flo Damon on :05/30/2021 00:02:24 8 The PSA assay is performed o n the Siemens [place] analyzer by LOCI sandwich chemiluminescent immunoassay and should not be compared interchangeably with other methods. It should not be used alone as a screening test or diagnosis for the presence or absence of malignant disease. Predictions of disease recurrence should not be based solely on values obtained from serial patient serum values. Procedures Date Code Description Status 07/06/2021 84972 Bladder Scan, Post Voiding Resid ual Urine Completed 06/20/2021 49403 Office/Outpatient Established Lo w MDM 20-29 Min Completed 05/29/2021 61780 Office/Outpatient Established Mo d MDM 30-39 Min Completed 01/22/2017 [id number] Colonoscopy Completed Medical Devices Description No Information Available Encounters Type Date Location Provider Dx Diagnosis Office Visit 06/20/2021 10:00a [facility]/ [facility] Urol SRAVANTHI San R97.20 Elevated prostate specific a ntigen [PSA] N40.1 Benign prostatic hyperplasia with lower urinary tract symp R35.1 Nocturia N41.9 Inflammatory disease of pros ibrahim, unspecified Office Visit 05/29/2021 10:10a [facility]/ [facility] Urol mae Dyer MD N40.1 Benign prostatic hyperplasia with lower urinary tract symp R97.20 Elevated prostate specific a ntigen [PSA] N41.9 Inflammatory disease of pros ibrahim, unspecified N39.0 Urinary tract infection, sit e not specified Assessments Date Code Description Provider 07/06/2021 N41.9 Inflammatory disease of prostate , unspecified SRAVANTHI Escamilla 06/20/2021 R97.20 Elevated prostate specific antig en [PSA] SRAVANTHI Escamilla 06/20/2021 N40.1 Benign prostatic hyperplasia wit h lower urinary tract symptoms SRAVANTHI Escamilla 06/20/2021 R35.1 Nocturia Yifan Escamilla 06/20/2021 N41.9 Inflammatory disease of prostate , unspecified SRAVANTHI Escamilla 05/29/2021 R82.998 Other abnormal findings in urine Flo Kaur MD 05/29/2021 N40.1 Benign prostatic hyperplasia wit h lower urinary tract symptoms Ilan Dyer MD 05/29/2021 R97.20 Elevated prostate specific antig en [PSA] Ilan Dyer MD 05/29/2021 N41.9 Inflammatory disease of prostate , unspecified Ilan Dyer MD 05/29/2021 N39.0 Urinary tract infection, site no t specified Ilan Dyer MD 05/29/2021 N40.1 Benign prostatic hyperplasia wit h lower urinary tract symptoms Flo Kaur MD Plan of Treatment Future Appointment(s):* 08/08/2021 8:45 am - SRAVANTHI Escamilla at [facility]/ A.. Urology * 06/20/2022 10:15 am - Ilan Dyer MD at [facility]/ .. Urology 07/06/2021 - SRAVANTHI Escamilla* N41.9 Inflammatory disease of prostate, unspecified* New Medication:* Ciprofloxacin HCL 250 mg - 1 by mouth twice a day x 10 days * Comments:* Patient presents acutely, with a feeling of incomplete emptying and pain at the tip of his penis. He was just recently seen 06/20/2021 for follow- up, after he had a bump in his PSA and treated him with antibiotics. He was felt of a possible prostatitis. He had a negative PCR culture. He has underlying BPH status post TURP and remains on Rapaflo 8 mg daily. He denies any fever. Currently PVR by bladder scan =297 mL. Urinalysis is benign. I think he likely has acute exacerbation of chronic prostatitis. I will send urine for culture. I will empirically initiate ciprofloxacin 250 mg twice daily for 10 days especially with the weekend approaching. He understands the risk of tendon injury. He will continue to hydrate well. If he is not finding resolution, I want to see him back within 10 days. Otherwise we will recheck his PSA as previously ordered. * All * Follow up:* Keep previously scheduled follow-up with PSA Functional Status Description No Information Available Mental Status Description No Information Available Referrals Description No Information Available
--- OUTSIDE RECORDS SUMMARY | 2021-08-03 08:36 | CCD | Continuity of Care Document ---
Author Author Vasiliy BARAKAT [place] Organization Unknown Address [address] [place] [address] DR. Sudha green [address] [place] [address] Phone [phone] Care Team Providers Care Radiographer Angiogram Name Role Phone Waqar Del Angel M.D. AUTM [phone] Problems Active Problems Provider Date Benign prostatic [...] Note Laboratory test finding 07/06/2021 [facility] [address] [address] [phone] Urine Culture SPECIMEN DESCRIP <SEE NOTE> 1 230 Ua Routine 07/06/2021 [facility] REF TO ADDRESS ON ORDER FOR (426)- - Ua Glucose Negative Ua Protein Negative Ua Nitrite Negative Ua Leuko Negative Ua Blood Negative Ua Color Not Entered Ua Ketones Negative Ua Clarity Not Entered Ua Specific [place] 1.025 1.003-1.030 Ua PH 7.0 5.0-7.5 Ua Bilirubin Negative Ua Urobilinogen 0.2 E.U./dL 0.0-1.0 230 Ua Routine 06/20/2021 [facility] REF TO DR ADDRESS ON ORDER FOR (067)- - Ua Glucose Negative Ua Protein Negative Ua Nitrite Negative Ua Leuko Negative Ua Blood Negative Ua Color Not Entered Ua Ketones Negative Ua Clarity Not Entered Ua Specific [place] 1.020 1.003-1.030 Ua PH 6.0 5.0-7.5 Ua Bilirubin Negative Ua Urobilinogen 0.2 E.U./dL 0.0-1.0 Laboratory test finding 06/14/[address] [id number] [phone] Prostatic Specific Ag Monitor 3.31 NG/ML Normal < 4.00 2 Laboratory test finding 05/29/2021 [facility] FX# [id number] [phone] Urine Culture SPECIMEN DESCRIP <SEE NOTE> 3 Standard UTI 05/29/2021 [facility] [place] Acinetobacter baumannii NOTDETECTED Normal Actinobaculum schaalii NOTDETECTED [...] NOTDETECTED Normal Carbapenemase (Class A) NOTDETECTED Normal 4 Extended Spectrum -lactamase (Class A) NOTDETECTED Normal 5 Extended-Spectrum--Lactamase NOTDETECTED Normal 6 Macrolide Resistance NOTDETECTED Normal Quinolone Resistance NOTDETECTED Normal 7 blanca integron-encoded metallo--lactamase NOTDETECTED Normal 8 Pathology Report SEE IMAGE 230 Ua Routine 05/29/2021 [facility] REF TO DR ADDRESS ON ORDER FOR (315)- - Ua Glucose Negative Ua Protein Negative Ua Nitrite Negative Ua Leuko Moderate Ua Blood Negative Ua Color Not Entered Ua Ketones Negative Ua Clarity Not Entered Ua Specific [place] 1.015 1.003-1.030 Ua PH 7.0 5.0-7.5 Ua Bilirubin Negative Ua Urobilinogen 0.2 E.U./dL 0.0-1.0 Laboratory test finding 05/15/[address] [address] [phone] PSA Screening 3.37 NG/ML Normal < 4.00 9 1 SPECIMEN DESCRIPTION URINE, COLLECTION METHOD NOT SPECIFIED CULTURE RESULTS NO GROWTH REPORT STATUS FINAL 07/08/2021 2 The PSA assay is performed o n the Siemens [place] analyzer by LOCI sandwich chemiluminescent immunoassay and should not be compared interchangeably with other methods. It should not be used alone as a screening test or diagnosis for the presence or absence of malignant disease. Predictions of disease recurrence should not be based solely on values obtained from serial patient serum values. 3 SPECIMEN DESCRIPTION MIDSTREAM URINE,CLEAN CATCH CULTURE RESULTS NO GROWTH REPORT STATUS FINAL 05/30/2021 4 NOTDETECTED NOTDETECTED NOTDETECTED NOTDETECTED 5 NOTDETECTED 6 NOTDETECTED NOTDETECTED NOTDETECTED 7 NOTDETECTED 8 Electronically signed by : Flo Damon on :05/30/2021 00:02:24 9 The PSA assay is performed o n the Siemens [place] analyzer by LOCI sandwich chemiluminescent immunoassay and should not be compared interchangeably with other methods. It should not be used alone as a screening test or diagnosis for the presence or absence of malignant disease. Predictions of disease recurrence should not be based solely on values obtained from serial patient serum values. Procedures Date Code Description Status 07/06/2021 06488 Bladder Scan, Post Voiding Resid ual Urine Completed 06/20/2021 97510 Office/Outpatient Established Lo w MDM 20-29 Min Completed 05/29/2021 09505 Office/Outpatient Established Mo d MDM 30-39 Min Completed 01/22/2017 [id number] Colonoscopy Completed Medical Devices Description No Information Available Encounters Type Date Location Provider Dx Diagnosis Office Visit 06/20/2021 10:00a [facility]/ [facility] Urol SRAVANTHI San R97.20 Elevated prostate specific a ntigen [PSA] N40.1 Benign prostatic hyperplasia with lower urinary tract symp R35.1 Nocturia N41.9 Inflammatory disease of pros ibrahim, unspecified Office Visit 05/29/2021 10:10a [facility]/ [facility] Urol mae Dyer MD N40.1 Benign [...] 08/08/2021 8:45 am - SRAVANTHI Escamilla at [facility]/ A.M. Urology * 06/20/2022 10:15 am - Ilan Dyer MD at [facility]/ .. Urology 07/06/2021 - SRAVANTHI Escamilla* N41.9 [...]
--- OUTSIDE RECORDS SUMMARY | 2021-08-03 08:36 | CCD | Continuity of Care Document ---
Author Author Vasiliy BARAKAT [place] Organization Unknown Address [address] [place] [address] DR. Sudha green [address] [place] [address] Phone [phone] Care Team Providers Care Security Ambassador Name Role Phone Waqar Del Angel M.D. AUTM [phone] Problems Active Problems Provider Date Benign prostatic [...] Note Laboratory test finding 07/06/2021 [facility] [address] [address] [phone] Urine Culture <pending> 230 Ua Routine 07/06/2021 [facility] REF TO DR ADDRESS ON ORDER FOR (833)- - Ua Glucose Negative Ua Protein Negative Ua Nitrite Negative Ua Leuko Negative Ua Blood Negative Ua Color Not Entered Ua Ketones Negative Ua Clarity Not Entered Ua Specific [place] 1.025 1.003-1.030 Ua PH 7.0 5.0-7.5 Ua Bilirubin Negative Ua Urobilinogen 0.2 E.U./dL 0.0-1.0 230 Ua Routine 06/20/2021 [facility] REF TO DR ADDRESS ON ORDER FOR (574)- - Ua Glucose Negative Ua Protein Negative Ua Nitrite Negative Ua Leuko Negative Ua Blood Negative Ua Color Not Entered Ua Ketones Negative Ua Clarity Not Entered Ua Specific [place] 1.020 1.003-1.030 Ua PH 6.0 5.0-7.5 Ua Bilirubin Negative Ua Urobilinogen 0.2 E.U./dL 0.0-1.0 Laboratory test finding 06/14/[address] [id number] [phone] Prostatic Specific Ag Monitor 3.31 NG/ML Normal < 4.00 1 Laboratory test finding 05/29/2021 Laboratory [facility] PO FX# [id number] [phone] Urine Culture SPECIMEN DESCRIP <SEE NOTE> 2 Standard UTI 05/29/2021 [facility] [place] Acinetobacter baumannii NOTDETECTED Normal Actinobaculum schaalii NOTDETECTED [...] Negative Ua Clarity Not Entered Ua Specific [place] 1.015 1.003-1.030 Ua PH 7.0 5.0-7.5 Ua Bilirubin Negative Ua Urobilinogen 0.2 E.U./dL 0.0-1.0 Laboratory test finding 05/15/2021 [place] [id number] [phone] PSA Screening 3.37 NG/ML Normal < 4.00 8 1 The PSA assay is performed o n the Siemens [place] analyzer by [employer] sandwich chemiluminescent immunoassay and should not be [...] assay is performed o n the Siemens [place] analyzer by LOCI sandwich chemiluminescent immunoassay and should not be compared interchangeably with other methods. It should not be used alone as a screening test or diagnosis for the presence or absence of malignant disease. Predictions of disease recurrence should not be based solely on values obtained from serial patient serum values. Procedures Date Code Description Status 07/06/2021 55864 Bladder Scan, Post Voiding Resid ual Urine Completed 06/20/2021 91811 Office/Outpatient Established Lo w MDM 20-29 Min Completed 05/29/2021 98180 Office/Outpatient Established Mo d MDM 30-39 Min Completed 01/22/2017 [id number] Colonoscopy Completed Medical Devices Description No Information Available Encounters Type Date Location Provider Dx Diagnosis Office Visit 06/20/2021 10:00a [facility]/ [facility] Urol SRAVANTHI San R97.20 Elevated prostate specific a ntigen [PSA] N40.1 Benign prostatic hyperplasia with lower urinary tract symp R35.1 Nocturia N41.9 Inflammatory disease of pros ibrahim, unspecified Office Visit 05/29/2021 10:10a [facility]/ [facility] Urol mae Dyer MD [...] 08/08/2021 8:45 am - SRAVANTHI Escamilla at [facility]/ A.. Urology * 06/20/2022 10:15 am - Ilan Dyer MD at [facility]/ .. Urology 07/06/2021 - SRAVANTHI [...]
--- OUTSIDE RECORDS SUMMARY | 2021-08-03 08:36 | CCD | Continuity of Care Document ---
Author Author Vasiliy BARAKAT [place] Organization Unknown Address [address] [place] [address] DR. Sudha green [address] [place] [address] Phone [phone] Care Team Providers Care Farmworker Pullet Farm Name Role Phone Waqar Del Angel M.D. AUTM [phone] Problems Active Problems Provider Date Benign prostatic [...] 1 Capsule Daily After Dinner 90caps SRAVANTHI [facility]illa 05/22/2020 Probiotic Daily Capsules 1 by mouth [...] Note Laboratory test finding 07/06/2021 [facility] [address] [address] [phone] Urine Culture <pending> 230 Ua Routine 07/06/2021 [facility] REF TO DR ADDRESS ON ORDER FOR (840)- - Ua Glucose Negative Ua Protein Negative Ua Nitrite Negative Ua Leuko Negative Ua Blood Negative Ua Color Not Entered Ua Ketones Negative Ua Clarity Not Entered Ua Specific [place] 1.025 1.003-1.030 Ua PH 7.0 5.0-7.5 Ua Bilirubin Negative Ua Urobilinogen 0.2 E.U./dL 0.0-1.0 230 Ua Routine 06/20/2021 [facility] REF TO DR ADDRESS ON ORDER FOR (093)- - Ua Glucose Negative Ua Protein Negative Ua Nitrite Negative Ua Leuko Negative Ua Blood Negative Ua Color Not Entered Ua Ketones Negative Ua Clarity Not Entered Ua Specific [place] 1.020 1.003-1.030 Ua PH 6.0 5.0-7.5 Ua Bilirubin Negative Ua Urobilinogen 0.2 E.U./dL 0.0-1.0 Laboratory test finding 06/14/[address] [id number] [phone] Prostatic Specific Ag Monitor 3.31 NG/ML Normal < 4.00 1 Laboratory test finding 05/29/2021 Laboratory [facility] PO FX# [id number] [phone] Urine Culture SPECIMEN DESCRIP <SEE NOTE> 2 Standard UTI 05/29/2021 [facility] [place] Acinetobacter baumannii NOTDETECTED Normal Actinobaculum schaalii NOTDETECTED [...] Negative Ua Clarity Not Entered Ua Specific [place] 1.015 1.003-1.030 Ua PH 7.0 5.0-7.5 Ua Bilirubin Negative Ua Urobilinogen 0.2 E.U./dL 0.0-1.0 Laboratory test finding 05/15/2021 [place] [id number] [phone] PSA Screening 3.37 NG/ML Normal < 4.00 8 1 The PSA assay is performed o n the Siemens [place] analyzer by [employer] sandwich chemiluminescent immunoassay and should not be [...] assay is performed o n the Siemens [place] analyzer by LOCI sandwich chemiluminescent immunoassay and should not be compared interchangeably with other methods. It should not be used alone as a screening test or diagnosis for the presence or absence of malignant disease. Predictions of disease recurrence should not be based solely on values obtained from serial patient serum values. Procedures Date Code Description Status 07/06/2021 99099 Bladder Scan, Post Voiding Resid ual Urine Completed 06/20/2021 27033 Office/Outpatient Established Lo w MDM 20-29 Min Completed 05/29/2021 40684 Office/Outpatient Established Mo d MDM 30-39 Min Completed 01/22/2017 [id number] Colonoscopy Completed Medical Devices Description No Information Available Encounters Type Date Location Provider Dx Diagnosis Office Visit 06/20/2021 10:00a [facility]/ [facility] Urol SRAVANTHI San R97.20 Elevated prostate specific a ntigen [PSA] N40.1 Benign prostatic hyperplasia with lower urinary tract symp R35.1 Nocturia N41.9 Inflammatory disease of pros ibrahim, unspecified Office Visit 05/29/2021 10:10a [facility]/ [facility] Urol mae Dyer MD N40.1 Benign [...] 08/08/2021 8:45 am - SRAVANTHI Escamilla at [facility]/ A.. Urology * 06/20/2022 10:15 am - Ilan Dyer MD at [facility]/ .. Urology 07/06/2021 - SRAVANTHI Escamilla* N41.9 [...]
--- OUTSIDE RECORDS SUMMARY | 2021-08-03 08:36 | CCD | Continuity of Care Document ---
Author Author Vasiliy BARAKAT [place] Organization Unknown Address [address] [place] [address] DR. Sudha green [address] [place] [address] Phone [phone] Care Team Providers Care Warehouse Material Handler Name Role Phone Waqar Del Angel M.D. AUTM [phone] Problems Active Problems Provider Date Benign prostatic [...] Note Laboratory test finding 07/06/2021 [facility] [address] [address] [phone] Urine Culture SPECIMEN DESCRIP <SEE NOTE> 1 230 Ua Routine 07/06/2021 [facility] REF TO ADDRESS ON ORDER FOR (307)- - Ua Glucose Negative Ua Protein Negative Ua Nitrite Negative Ua Leuko Negative Ua Blood Negative Ua Color Not Entered Ua Ketones Negative Ua Clarity Not Entered Ua Specific [place] 1.025 1.003-1.030 Ua PH 7.0 5.0-7.5 Ua Bilirubin Negative Ua Urobilinogen 0.2 E.U./dL 0.0-1.0 230 Ua Routine 06/20/2021 [facility] REF TO DR ADDRESS ON ORDER FOR (167)- - Ua Glucose Negative Ua Protein Negative Ua Nitrite Negative Ua Leuko Negative Ua Blood Negative Ua Color Not Entered Ua Ketones Negative Ua Clarity Not Entered Ua Specific [place] 1.020 1.003-1.030 Ua PH 6.0 5.0-7.5 Ua Bilirubin Negative Ua Urobilinogen 0.2 E.U./dL 0.0-1.0 Laboratory test finding 06/14/[address] [id number] [phone] Prostatic Specific Ag Monitor 3.31 NG/ML Normal < 4.00 2 Laboratory test finding 05/29/2021 Laboratory [facility] FX# [id number] [phone] Urine Culture SPECIMEN DESCRIP <SEE NOTE> 3 Standard UTI 05/29/2021 [facility] [place] Acinetobacter baumannii NOTDETECTED Normal Actinobaculum schaalii NOTDETECTED [...] Negative Ua Clarity Not Entered Ua Specific [place] 1.015 1.003-1.030 Ua PH 7.0 5.0-7.5 Ua Bilirubin Negative Ua Urobilinogen 0.2 E.U./dL 0.0-1.0 Laboratory test finding 05/15/[address] [address] [phone] PSA Screening 3.37 NG/ML Normal < 4.00 9 1 SPECIMEN DESCRIPTION URINE, COLLECTION METHOD NOT SPECIFIED CULTURE RESULTS NO GROWTH REPORT STATUS FINAL 07/08/2021 2 The PSA assay is performed o n the Siemens [place] analyzer by [employer] sandwich chemiluminescent immunoassay and [...] assay is performed o n the Siemens [place] analyzer by [employer] sandwich chemiluminescent immunoassay and should not be compared interchangeably with other methods. It should not be used alone as a screening test or diagnosis for the presence or absence of malignant disease. Predictions of disease recurrence should not be based solely on values obtained from serial patient serum values. Procedures Date Code Description Status 07/06/2021 60598 Office/Outpatient Established Lo w MDM 20-29 Min Completed 07/06/2021 76006 Bladder Scan, Post Voiding Resid ual Urine Completed 06/20/2021 28981 Office/Outpatient Established Lo w MDM 20-29 Min Completed 05/29/2021 71053 Office/Outpatient Established Mo d MDM 30-39 Min Completed 01/22/2017 [id number] Colonoscopy Completed Medical Devices Description No Information Available Encounters Type Date Location Provider Dx Diagnosis Office Visit 07/06/2021 1:15p [facility]/ [facility] SRAVANTHI San N41.9 Inflammatory disease of pros ibrahim, unspecified R35.1 Nocturia Office Visit 06/20/2021 10:00a [facility]/ [facility]rol SRAVANTHI San R97.20 Elevated prostate specific a ntigen [PSA] N40.1 Benign prostatic hyperplasia with lower urinary tract symp R35.1 Nocturia N41.9 Inflammatory disease of pros ibrahim, unspecified Office Visit 05/29/2021 10:10a [facility]/ [facility]rol mae Dyer MD N40.1 Benign prostatic hyperplasia with lower urinary tract symp R97.20 Elevated prostate specific a ntigen [PSA] N41.9 Inflammatory disease of pros ibrahim, unspecified N39.0 Urinary tract infection, sit e not specified Assessments Date Code Description Provider 07/06/2021 N41.9 Inflammatory disease of prostate , unspecified SRAVANTHI Escamilla 07/06/2021 R35.1 Nocturia Yifan Escamilla 06/20/2021 R97.20 Elevated prostate specific antig [...] 08/08/2021 8:45 am - SRAVANTHI Escamilla at [facility]/ [facility] Urology * 06/20/2022 10:15 am - Ilan Dyer MD at [facility]/ .. Urology 07/06/2021 - SRAVANTHI Escamilla* N41.9 [...] recheck his PSA as previously ordered. * R35.1 Nocturia * All * Follow up:* Keep previously scheduled follow-up with PSA Functional Status Description No Information Available Mental Status Description No Information Available Referrals Description No Information Available
--- OUTSIDE RECORDS SUMMARY | 2021-08-03 08:36 | CCD | Continuity of Care Document ---
Author Author Vasiliy BARAKAT [place] Organization Unknown Address [address] [place] [address] DR. Sudha green [address] [place] [address] Phone [phone] Care Team Providers Care Staff Technologist Name Role Phone Waqar Del Angel M.D. AUTM [phone] Problems Active Problems Provider Date Benign prostatic [...] Note Laboratory test finding 07/06/2021 [facility] [address] [address] [phone] Urine Culture <pending> 230 Ua Routine 07/06/2021 [facility] REF TO DR ADDRESS ON ORDER FOR (216)- - Ua Glucose Negative Ua Protein Negative Ua Nitrite Negative Ua Leuko Negative Ua Blood Negative Ua Color Not Entered Ua Ketones Negative Ua Clarity Not Entered Ua Specific [place] 1.025 1.003-1.030 Ua PH 7.0 5.0-7.5 Ua Bilirubin Negative Ua Urobilinogen 0.2 E.U./dL 0.0-1.0 230 Ua Routine 06/20/2021 [facility] REF TO DR ADDRESS ON ORDER FOR (454)- - Ua Glucose Negative Ua Protein Negative Ua Nitrite Negative Ua Leuko Negative Ua Blood Negative Ua Color Not Entered Ua Ketones Negative Ua Clarity Not Entered Ua Specific [place] 1.020 1.003-1.030 Ua PH 6.0 5.0-7.5 Ua Bilirubin Negative Ua Urobilinogen 0.2 E.U./dL 0.0-1.0 Laboratory test finding 06/14/[address] [id number] [phone] Prostatic Specific Ag Monitor 3.31 NG/ML Normal < 4.00 1 Laboratory test finding 05/29/2021 Laboratory [facility] PO FX# [id number] [phone] Urine Culture SPECIMEN DESCRIP <SEE NOTE> 2 Standard UTI 05/29/2021 [facility] [place] Acinetobacter baumannii NOTDETECTED Normal Actinobaculum schaalii NOTDETECTED [...] Negative Ua Clarity Not Entered Ua Specific [place] 1.015 1.003-1.030 Ua PH 7.0 5.0-7.5 Ua Bilirubin Negative Ua Urobilinogen 0.2 E.U./dL 0.0-1.0 Laboratory test finding 05/15/2021 [place] [id number] [phone] PSA Screening 3.37 NG/ML Normal < 4.00 8 1 The PSA assay is performed o n the Siemens [place] analyzer by [employer] sandwich chemiluminescent immunoassay and should not be [...] assay is performed o n the Siemens [place] analyzer by LOCI sandwich chemiluminescent immunoassay and should not be compared interchangeably with other methods. It should not be used alone as a screening test or diagnosis for the presence or absence of malignant disease. Predictions of disease recurrence should not be based solely on values obtained from serial patient serum values. Procedures Date Code Description Status 07/06/2021 32309 Bladder Scan, Post Voiding Resid ual Urine Completed 06/20/2021 93249 Office/Outpatient Established Lo w MDM 20-29 Min Completed 05/29/2021 30366 Office/Outpatient Established Mo d MDM 30-39 Min Completed 01/22/2017 [id number] Colonoscopy Completed Medical Devices Description No Information Available Encounters Type Date Location Provider Dx Diagnosis Office Visit 06/20/2021 10:00a [facility]/ [facility] Urol SRAVANTHI San R97.20 Elevated prostate specific a ntigen [PSA] N40.1 Benign prostatic hyperplasia with lower urinary tract symp R35.1 Nocturia N41.9 Inflammatory disease of pros ibrahim, unspecified Office Visit 05/29/2021 10:10a [facility]/ [facility] Urol mae Dyer MD N40.1 Benign [...] 08/08/2021 8:45 am - SRAVANTHI Escamilla at [facility]/ A.. Urology * 06/20/2022 10:15 am - Ilan Dyer MD at [facility]/ .. Urology 07/06/2021 - SRAVANTHI Escamilla* N41.9 [...]
--- OUTSIDE RECORDS SUMMARY | 2021-08-03 08:36 | CCD | Continuity of Care Document ---
Author Author Vasiliy BARAKAT [place] Organization Unknown Address [address] [place] [address] DR. Sudha green [address] [place] [address] Phone [phone] Care Team Providers Care Retirement Officer Name Role Phone Waqar Del Angel M.D. AUTM [phone] Problems Active Problems Provider Date Benign prostatic [...] Note Laboratory test finding 07/06/2021 [facility] [address] [address] [phone] Urine Culture <pending> 230 Ua Routine 07/06/2021 [facility] REF TO DR ADDRESS ON ORDER FOR (051)- - Ua Glucose Negative Ua Protein Negative Ua Nitrite Negative Ua Leuko Negative Ua Blood Negative Ua Color Not Entered Ua Ketones Negative Ua Clarity Not Entered Ua Specific [place] 1.025 1.003-1.030 Ua PH 7.0 5.0-7.5 Ua Bilirubin Negative Ua Urobilinogen 0.2 E.U./dL 0.0-1.0 230 Ua Routine 06/20/2021 [facility] REF TO DR ADDRESS ON ORDER FOR (802)- - Ua Glucose Negative Ua Protein Negative Ua Nitrite Negative Ua Leuko Negative Ua Blood Negative Ua Color Not Entered Ua Ketones Negative Ua Clarity Not Entered Ua Specific [place] 1.020 1.003-1.030 Ua PH 6.0 5.0-7.5 Ua Bilirubin Negative Ua Urobilinogen 0.2 E.U./dL 0.0-1.0 Laboratory test finding 06/14/[address] [id number] [phone] Prostatic Specific Ag Monitor 3.31 NG/ML Normal < 4.00 1 Laboratory test finding 05/29/2021 Laboratory [facility] PO FX# [id number] [phone] Urine Culture SPECIMEN DESCRIP <SEE NOTE> 2 Standard UTI 05/29/2021 [facility] [place] Acinetobacter baumannii NOTDETECTED Normal Actinobaculum schaalii NOTDETECTED [...] Negative Ua Clarity Not Entered Ua Specific [place] 1.015 1.003-1.030 Ua PH 7.0 5.0-7.5 Ua Bilirubin Negative Ua Urobilinogen 0.2 E.U./dL 0.0-1.0 Laboratory test finding 05/15/2021 [place] [id number] [phone] PSA Screening 3.37 NG/ML Normal < 4.00 8 1 The PSA assay is performed o n the Siemens [place] analyzer by [employer] sandwich chemiluminescent immunoassay and should not be [...] assay is performed o n the Siemens [place] analyzer by [employer]I sandwich chemiluminescent immunoassay and should not be compared interchangeably with other methods. It should not be used alone as a screening test or diagnosis for the presence or absence of malignant disease. Predictions of disease recurrence should not be based solely on values obtained from serial patient serum values. Procedures Date Code Description Status 07/06/2021 55265 Bladder Scan, Post Voiding Resid ual Urine Completed 06/20/2021 97494 Office/Outpatient Established Lo w MDM 20-29 Min Completed 05/29/2021 25554 Office/Outpatient Established Mo d MDM 30-39 Min Completed 01/22/2017 [id number] Colonoscopy Completed Medical Devices Description No Information Available Encounters Type Date Location Provider Dx Diagnosis Office Visit 06/20/2021 10:00a [facility]/ [facility] Urol SRAVANTHI San R97.20 Elevated prostate specific a ntigen [PSA] N40.1 Benign prostatic hyperplasia with lower urinary tract symp R35.1 Nocturia N41.9 Inflammatory disease of pros ibrahim, unspecified Office Visit 05/29/2021 10:10a [facility]/ A[facility] Urol mae Dyer MD N40.1 Benign [...] 08/08/2021 8:45 am - SRAVANTHI Escamilla at [facility]/ A.. Urology * 06/20/2022 10:15 am - Ilan Dyer MD at [facility]/ .. Urology 07/06/2021 - SRAVANTHI Escamilla* N41.9 [...]
--- OUTSIDE RECORDS SUMMARY | 2021-08-03 08:37 | CCD | Continuity of Care Document ---
Author Organization Unknown Address Unknown Phone Unavailable Care Team Providers Care Varnish Melter Helper Name Role Phone Waqar Del Angel M.D. [facility] [phone] Problems Active Problems Provider Date Benign prostatic [...] Social History Type Date Description Comments Sex Unknown Tobacco Use Reviewed: 05/25/20 Never Smoked Cigarettes Smoking Status Reviewed: 05/29/21 Never Smoked Cigarettes ETOH Use Patient denies alcohol use Allergies, Adverse Reactions, Alerts Active Allergies Criticality Reaction | Severity Comments Date Bactrim Unable to assess criticality Facial swelling | Moderat e 06/04/2021 Inactive Allergies NKDA Unable to assess criticality 01/08/2011 Medications Active Medications SIG Qnty Indications Ordering Provide r Date Cephalexin 250mg Capsules take 1 capsule (250 mg total) by mouth 2 times a day for 7 days 14caps Ilan Dyer MD 06/04/2021 Silodosin 8mg Capsules Take 1 Capsule Daily After Dinner 90caps SRAVANTHI Escamilla 05/22/2020 Probiotic Daily Capsules 1 by mouth every day 30caps Z87.440 Maurice Ugalde MD 7 Multivitamins Tablets daily Unknown Aspirin 81mg Tablets daily 30tabs Unknown Atorvastatin Calcium 40mg Tablets qd Unknown Nitroglycerin 0.4mg sublingu al prn Unknown Amlodipine Besylate 2.5mg Tablets qd Unknown History Medications Bactrim DS 800-160mg Tablets 1 by mouth twice a day 14tabs Ilan Dyer MD 1 - 06/04/2021 Immunizations Description No Information Available Vital Signs Date Vital Result Comment 05/29/2021 10:11am Height 64 inches 5'4" Weight 160.00 lb Weight 72.576 kg BMI (Body Mass Index) 27.5 kg/m2 BP Systolic 125 mmHg BP Diastolic 69 mmHg Heart Rate 53 /min 05/25/2020 9:35am Height 64 inches 5'4" Weight 157.00 lb Weight 71.215 kg BMI (Body Mass Index) 26.9 kg/m2 BP Systolic 139 mmHg BP Diastolic 68 mmHg Heart Rate 51 /min Body Temperature 97.3 F Results Test Acquired Date Facility Test Result H/L Range Note Laboratory test finding 05/29/2021 Laboratory [facility] FX# [id number] [phone] Urine Culture SPECIMEN DESCRIP <SEE NOTE> 1 Standard UTI 05/29/2021 [facility] [place] Acinetobacter baumannii NOTDETECTED Normal Actinobaculum schaalii NOTDETECTED [...] NOTDETECTED Normal Carbapenemase (Class A) NOTDETECTED Normal 2 Extended Spectrum -lactamase (Class A) NOTDETECTED Normal 3 Extended-Spectrum--Lactamase NOTDETECTED Normal 4 Macrolide Resistance NOTDETECTED Normal Quinolone Resistance NOTDETECTED Normal 5 blanca integron-encoded metallo--lactamase NOTDETECTED Normal 6 Pathology Report SEE IMAGE 230 Ua Routine 05/29/2021 [facility] REF TO DR ADDRESS ON ORDER FOR (018)- - Ua Glucose Negative Ua Protein Negative Ua Nitrite Negative Ua Leuko Moderate Ua Blood Negative Ua Color Not Entered Ua Ketones Negative Ua Clarity Not Entered Ua Specific [place] 1.015 1.003-1.030 Ua PH 7.0 5.0-7.5 Ua Bilirubin Negative Ua Urobilinogen 0.2 E.U./dL 0.0-1.0 Laboratory test finding 05/15/2021 [facility]) [address] [place] [address] [id number] [phone] PSA Screening 3.37 NG/ML Normal < 4.00 7 1 SPECIMEN DESCRIPTION MIDSTREAM URINE,CLEAN CATCH CULTURE RESULTS NO GROWTH REPORT STATUS FINAL 05/30/2021 2 NOTDETECTED NOTDETECTED NOTDETECTED NOTDETECTED 3 NOTDETECTED 4 NOTDETECTED NOTDETECTED NOTDETECTED 5 NOTDETECTED 6 Electronically signed by : Flo Damon on :05/30/2021 00:02:24 7 The PSA assay is performed o n the Siemens [place] analyzer by [employer] sandwich chemiluminescent immunoassay and should not be compared interchangeably with other methods. It should not be used alone as a screening test or diagnosis for the presence or absence of malignant disease. Predictions of disease recurrence should not be based solely on values obtained from serial patient serum values. Procedures Date Code Description Status 05/29/2021 22366 Office/Outpatient Established Mo d MDM 30-39 Min Completed 01/22/2017 [id number] Colonoscopy Completed Medical Devices Description No Information Available Encounters Type Date Location Provider Dx Diagnosis Office Visit 05/29/2021 10:10a [facility]/ A[facility] Urol ogy Ilan Dyer MD N40.1 Benign prostatic hyperplasia with lower urinary tract symp R97.20 Elevated prostate specific a ntigen [PSA] N41.9 Inflammatory disease of pros ibrahim, unspecified N39.0 Urinary tract infection, sit e not specified Assessments Date Code Description Provider 05/29/2021 R82.998 Other abnormal findings in urine [...] Kaur MD Plan of Treatment Future Appointment(s):* 06/20/2021 10:00 am - SRAVANTHI Escamilla at [facility]/ A[facility] Urology 05/29/2021 - Ilan Dyer MD* N40.1 Benign prostatic hyperplasia with lower urinary tract symptoms * R97.20 Elevated prostate specific antigen [PSA]* New Labs:* PSA Total, Ordered: 05/29/21 * N41.9 Inflammatory disease of prostate, unspecified * N39.0 Urinary tract infection, site not specified * All * New Medication:* Bactrim DS 800-160 mg - 1 by mouth twice a day * Follow up:* 3 weeks SRAVANTHI Hernandez with PSA few days prior Functional Status Description No Information Available Mental Status Description No Information Available Referrals Description No Information Available
--- OUTSIDE RECORDS SUMMARY | 2021-08-03 08:37 | CCD | Continuity of Care Document ---
Author Vasiliy Ch [place] Organization Unknown Address [address] [place] [address] DR. Sudha green [address] [place] [address] Phone [phone] Care Team Providers Care Dairy Farm Supervisor Name Role Phone Waqar Del Angel M.D. AUTM [phone] Problems Active Problems Provider Date Benign prostatic [...] 05/25/20 Never Smoked Cigarettes Smoking Status Reviewed: 06/20/21 Never Smoked Cigarettes ETOH Use Patient denies alcohol use Allergies, Adverse Reactions, Alerts Active Allergies Criticality Reaction | Severity Comments Date Bactrim Unable to assess criticality Facial swelling | Moderat e 06/04/2021 Inactive Allergies NKDA Unable to assess criticality 01/08/2011 Medications Active Medications SIG Qnty Indications Ordering Provide r Date Silodosin 8mg Capsules Take 1 Capsule Daily [...] Available Vital Signs Date Vital Result Comment 06/20/2021 10:03am Height 64 inches 5'4" Weight 160.00 lb Weight 72.576 kg BMI (Body Mass Index) 27.5 kg/m2 BP Systolic 137 mmHg BP Diastolic 81 mmHg Heart Rate 58 /min 05/29/2021 10:11am Height 64 inches 5'4" Weight 160.00 lb Weight 72.576 kg BMI (Body Mass Index) 27.5 kg/m2 BP Systolic 125 mmHg BP Diastolic 69 mmHg Heart Rate 53 /min Results Test Acquired Date Facility Test Result H/L Range Note 230 Ua Routine 06/20/2021 [facility] REF TO ADDRESS ON ORDER FOR (527)- - Ua Glucose Negative Ua Protein Negative Ua Nitrite Negative Ua Leuko Negative Ua Blood Negative Ua Color Not Entered Ua Ketones Negative Ua Clarity Not Entered Ua Specific [place] 1.020 1.003-1.030 Ua PH 6.0 5.0-7.5 Ua Bilirubin Negative Ua Urobilinogen 0.2 E.U./dL 0.0-1.0 Laboratory test finding 06/14/2021 [facility]) [address] [place] [address] [phone] Prostatic Specific Ag Monitor 3.31 NG/ML Normal < 4.00 1 Laboratory test finding 05/29/2021 [facility] FX# [id number] [phone] Urine Culture SPECIMEN DESCRIP <SEE NOTE> 2 Standard UTI 05/29/2021 [facility] [place] Acinetobacter baumannii NOTDETECTED Normal Actinobaculum schaalii NOTDETECTED [...] Negative Ua Clarity Not Entered Ua Specific [place] 1.015 1.003-1.030 Ua PH 7.0 5.0-7.5 Ua Bilirubin Negative Ua Urobilinogen 0.2 E.U./dL 0.0-1.0 Laboratory test finding 05/15/2021 [facility]) [address] [place] [address] [phone] PSA Screening 3.37 NG/ML Normal < 4.00 8 1 The PSA assay is performed o n the Siemens [place] analyzer by [employer] sandwich chemiluminescent immunoassay and [...] assay is performed o n the Siemens [place] analyzer by [employer] sandwich chemiluminescent immunoassay and should not be compared interchangeably with other methods. It should not be used alone as a screening test or diagnosis for the presence or absence of malignant disease. Predictions of disease recurrence should not be based solely on values obtained from serial patient serum values. Procedures Date Code Description Status 06/20/2021 79613 Office/Outpatient Established Lo w MDM 20-29 Min Completed 05/29/2021 06184 Office/Outpatient Established Mo d MDM 30-39 Min Completed 01/22/2017 [id number] Colonoscopy Completed Medical Devices Description No Information Available Encounters Type Date Location Provider Dx Diagnosis Office Visit 06/20/2021 10:00a [facility]/ [facility] Urol SRAVANTHI San R97.20 Elevated prostate specific a ntigen [PSA] N40.1 Benign prostatic hyperplasia with lower urinary tract symp R35.1 Nocturia N41.9 Inflammatory disease of pros ibrahim, unspecified Office Visit 05/29/2021 10:10a [facility]/ A[facility] Urol mae Dyer MD N40.1 Benign prostatic hyperplasia with lower urinary tract symp R97.20 Elevated prostate specific a ntigen [PSA] N41.9 Inflammatory disease of pros ibrahim, unspecified N39.0 Urinary tract infection, sit e not specified Assessments Date Code Description Provider 06/20/2021 R97.20 Elevated prostate specific antig en [PSA] SRAVANTHI Escamilla 06/20/2021 N40.1 Benign prostatic hyperplasia wit h lower urinary tract symptoms SRAVANTHI Escamilla 06/20/2021 R35.1 Nocturia Yifan Escamilla 06/20/2021 N41.9 Inflammatory disease of prostate , unspecified SRAVANTHI Escamilla 05/29/2021 R82.998 Other abnormal findings in urine Flo Kaur MD 05/29/2021 N40.1 Benign prostatic hyperplasia wit h lower urinary tract symptoms Ialn Dyer MD 05/29/2021 R97.20 Elevated prostate specific antig en [PSA] Ilan Dyer MD 05/29/2021 N41.9 Inflammatory disease of prostate , unspecified Ilan Dyer MD 05/29/2021 N39.0 Urinary tract infection, site no t specified Ilan Dyer MD 05/29/2021 N40.1 Benign prostatic hyperplasia wit h lower urinary tract symptoms Flo Kaur MD Plan of Treatment Future Appointment(s):* 08/08/2021 8:45 am - SRAVANTHI Escamilla at [facility]/ A[facility] Urology * 06/20/2022 10:15 am - Ilan Dyer MD at [facility]/ A[facility] Urology 06/20/2021 - SRAVANTHI Escamilla* R97.20 Elevated prostate specific antigen [PSA] * New Labs:* PSA Total, Ordered: 06/20/21 * Comments:* Patient presents for follow-up of elevated PSA. He saw 05/29/2021 with a bump in his PSA to 3.37 up from 1.58. He was treated empirically with Bactrim DS and experienced anaphylaxis. He was then switched to cephalexin. He finished that full course before his recheck PSA. He had a negative PCR culture done. He has had a past history of prostatitis and UTI so he comes in today for reassessment. Currently PSA is just slightly improved at 3.31. He was as high as 5.02 on 05/01/2017. We discussed consideration of biopsy. At this time, we agreed that we would recheck the PSA in about 6 weeks. I will call him with the results. If the PSA rises, we would consider biopsy. * N40.1 Benign prostatic hyperplasia with lower urinary tract symptoms* Comments:* He has BPH with associated nocturia status post TURP and remains on Rapaflo 8 mg daily. * R35.1 Nocturia* Comments:* We discussed the importance of proper hydration and avoiding bladder irritants. Encouraged to avoid fluids after dinner. * N41.9 Inflammatory disease of prostate, unspecified* Comments:* As noted above. * All * Follow up:* Please give him a prescription for a PSA in 6 weeks, and set up a telephone appointment with me a few days later. Also, schedule an annual follow-up with PSA with next late May. Functional Status Description No Information Available Mental Status Description No Information Available Referrals Description No Information Available
--- OUTSIDE RECORDS SUMMARY | 2021-08-03 08:37 | CCD | Continuity of Care Document ---
Author Vasiliy Ch PA Organization Unknown Address [address] [place] [address] DR. Sudha green [address] [place] [address] Phone [phone] Care Team Providers Care Air Conditioning Sheet Metal Installer Name Role Phone Waqar Del Angel M.D. AUTM [phone] Problems Active Problems Provider Date Benign prostatic hyperplasia with outflow obstruction Ilan Dyer MD Onset: 02/13/2012 Prostatitis Ilan Dyer MD Onset: 02/13/2012 Screening for malignant neoplasm of prostate Ilan rasmussen MD Onset: 02/13/2012 Retention of urine Ilna Dyer MD Onset: 02/19/2013 Urinary tract infectious [...] Lab REF TO ADDRESS ON ORDER FOR (706)- - Ua Glucose Negative Ua Protein Negative Ua Nitrite Negative Ua Leuko Negative Ua Blood Negative Ua Color Not Entered Ua Ketones Negative Ua Clarity Not Entered Ua Specific [place] 1.020 1.003-1.030 Ua PH 6.0 5.0-7.5 Ua Bilirubin Negative Ua Urobilinogen 0.2 E.U./dL 0.0-1.0 Laboratory test finding 06/14/2021 [facility]) [address] [place] [address] [phone] Prostatic Specific Ag Monitor 3.31 NG/ML Normal < 4.00 1 Laboratory test finding 05/29/2021 Laboratory Allia wae POB FX# [id number] [phone] Urine Culture SPECIMEN DESCRIP <SEE NOTE> 2 Standard UTI 05/29/2021 [facility] [place] Acinetobacter baumannii NOTDETECTED Normal Actinobaculum schaalii NOTDETECTED [...] Negative Ua Clarity Not Entered Ua Specific [place] 1.015 1.003-1.030 Ua PH 7.0 5.0-7.5 Ua Bilirubin Negative Ua Urobilinogen 0.2 E.U./dL 0.0-1.0 Laboratory test finding 05/15/2021 [facility] ([place]) [address] [place] [address] [phone] PSA Screening 3.37 NG/ML Normal < 4.00 8 1 The PSA assay is performed o n the Siemens [place] analyzer by LOCI sandwich chemiluminescent immunoassay and [...] assay is performed o n the Siemens [place] analyzer by LOCI sandwich chemiluminescent immunoassay and should not be compared interchangeably with other methods. It should not be used alone as a screening test or diagnosis for the presence or absence of malignant disease. Predictions of disease recurrence should not be based solely on values obtained from serial patient serum values. Procedures Date Code Description Status 06/20/2021 73714 Office/Outpatient Established Lo w MDM 20-29 Min Completed 05/29/2021 79651 Office/Outpatient Established Mo d MDM 30-39 Min Completed 01/22/2017 [id number] Colonoscopy Completed Medical Devices Description No Information Available Encounters Type Date Location Provider Dx Diagnosis Office Visit 06/20/2021 10:00a [facility]/ [facility] Urol SRAVANTHI San R97.20 Elevated prostate specific a ntigen [PSA] N40.1 Benign prostatic hyperplasia with lower urinary tract symp R35.1 Nocturia N41.9 Inflammatory disease of pros ibrahim, unspecified Office Visit 05/29/2021 10:10a [facility]/ A[facility] Urol mae Dyer MD N40.1 Benign [...] Future Appointment(s):* 08/08/2021 8:45 am - SRAVANTHI sEcamilla at [facility]/ A.M[facility] Urology * 06/20/2022 10:15 am - Ilan Dyer MD at [facility]/ A[facility] Urology 06/20/2021 - SRAVANTHI Escamilla* R97.20 [...]
--- OUTSIDE RECORDS SUMMARY | 2021-08-03 08:37 | CCD | Continuity of Care Document ---
Author Vasiliy Ch PA Organization Unknown Address [address] [place] [address] DR. Sudha green [address] [place] [address] Phone [phone] Care Team Providers Care Head Sulfide Operator Name Role Phone Waqar Del Angel M.D. AUTM [phone] Problems Active Problems Provider Date Benign prostatic [...] Lab REF TO ADDRESS ON ORDER FOR (380)- - Ua Glucose Negative Ua Protein Negative Ua Nitrite Negative Ua Leuko Negative Ua Blood Negative Ua Color Not Entered Ua Ketones Negative Ua Clarity Not Entered Ua Specific [place] 1.020 1.003-1.030 Ua PH 6.0 5.0-7.5 Ua Bilirubin Negative Ua Urobilinogen 0.2 E.U./dL 0.0-1.0 Laboratory test finding 06/14/2021 [facility]) [address] [place] [address] [phone] Prostatic Specific Ag Monitor 3.31 NG/ML Normal < 4.00 1 Laboratory test finding 05/29/2021 Laboratory Allia nye POB FX# [id number] [phone] Urine Culture SPECIMEN DESCRIP <SEE NOTE> 2 Standard UTI 05/29/2021 [facility] [place] Acinetobacter baumannii NOTDETECTED Normal Actinobaculum schaalii NOTDETECTED [...] Negative Ua Clarity Not Entered Ua Specific [place] 1.015 1.003-1.030 Ua PH 7.0 5.0-7.5 Ua Bilirubin Negative Ua Urobilinogen 0.2 E.U./dL 0.0-1.0 Laboratory test finding 05/15/2021 [facility] ([place]) [address] [place] [address] [phone] PSA Screening 3.37 NG/ML Normal < 4.00 8 1 The PSA assay is performed o n the Siemens [place] analyzer by LOCI sandwich chemiluminescent immunoassay and [...] assay is performed o n the Siemens [place] analyzer by LOCI sandwich chemiluminescent immunoassay and should not be compared interchangeably with other methods. It should not be used alone as a screening test or diagnosis for the presence or absence of malignant disease. Predictions of disease recurrence should not be based solely on values obtained from serial patient serum values. Procedures Date Code Description Status 06/20/2021 47104 Office/Outpatient Established Lo w MDM 20-29 Min Completed 05/29/2021 90723 Office/Outpatient Established Mo d MDM 30-39 Min Completed 01/22/2017 [id number] Colonoscopy Completed Medical Devices Description No Information Available Encounters Type Date Location Provider Dx Diagnosis Office Visit 06/20/2021 10:00a [facility]/ A[facility] Urol SRAVANTHI San R97.20 Elevated prostate specific a ntigen [PSA] N40.1 Benign prostatic hyperplasia with lower urinary tract symp R35.1 Nocturia N41.9 Inflammatory disease of pros ibrahim, unspecified Office Visit 05/29/2021 10:10a [facility]/ A.M.P. Urol mae Dyer MD [...] 08/08/2021 8:45 am - SRAVANTHI Escamilla at [facility]/ A.M[facility]P. Urology * 06/20/2022 10:15 am - Ilan Dyer MD at [facility]/ A.M[facility] Urology 06/20/2021 - SRAVANTHI Escamilla* R97.20 [...]
--- OUTSIDE RECORDS SUMMARY | 2021-08-03 08:37 | CCD | Continuity of Care Document ---
Author Vasiliy Ch PA Organization Unknown Address [address] [place] [address] DR. Sudha green [address] [place] [address] Phone [phone] Care Team Providers Care Wet Press Tender Name Role Phone Waqar Del Angel M.D. AUTM [phone] Problems Active Problems Provider Date Benign prostatic [...] Lab REF TO ADDRESS ON ORDER FOR (439)- - Ua Glucose Negative Ua Protein Negative Ua Nitrite Negative Ua Leuko Negative Ua Blood Negative Ua Color Not Entered Ua Ketones Negative Ua Clarity Not Entered Ua Specific [place] 1.020 1.003-1.030 Ua PH 6.0 5.0-7.5 Ua Bilirubin Negative Ua Urobilinogen 0.2 E.U./dL 0.0-1.0 Laboratory test finding 06/14/2021 [facility]) [address] [place] [address] [phone] Prostatic Specific Ag Monitor 3.31 NG/ML Normal < 4.00 1 Laboratory test finding 05/29/2021 Laboratory Allia ide POB FX# [id number] [phone] Urine Culture SPECIMEN DESCRIP <SEE NOTE> 2 Standard UTI 05/29/2021 [facility] [place] Acinetobacter baumannii NOTDETECTED Normal Actinobaculum schaalii NOTDETECTED [...] Negative Ua Clarity Not Entered Ua Specific [place] 1.015 1.003-1.030 Ua PH 7.0 5.0-7.5 Ua Bilirubin Negative Ua Urobilinogen 0.2 E.U./dL 0.0-1.0 Laboratory test finding 05/15/2021 [facility] ([place]) [address] [place] [address] [phone] PSA Screening 3.37 NG/ML Normal < 4.00 8 1 The PSA assay is performed o n the Siemens [place] analyzer by LOCI sandwich chemiluminescent immunoassay and [...] assay is performed o n the Siemens [place] analyzer by LOCI sandwich chemiluminescent immunoassay and should not be compared interchangeably with other methods. It should not be used alone as a screening test or diagnosis for the presence or absence of malignant disease. Predictions of disease recurrence should not be based solely on values obtained from serial patient serum values. Procedures Date Code Description Status 06/20/2021 56059 Office/Outpatient Established Lo w MDM 20-29 Min Completed 05/29/2021 84259 Office/Outpatient Established Mo d MDM 30-39 Min Completed 01/22/2017 [id number] Colonoscopy Completed Medical Devices Description No Information Available Encounters Type Date Location Provider Dx Diagnosis Office Visit 06/20/2021 10:00a [facility]/ [facility] Urol SRAVANTHI San R97.20 Elevated prostate specific a ntigen [PSA] N40.1 Benign prostatic hyperplasia with lower urinary tract symp R35.1 Nocturia N41.9 Inflammatory disease of pros ibrahim, unspecified Office Visit 05/29/2021 10:10a [facility]/ A.M[facility] Urol mae Dyer MD N40.1 Benign [...] 08/08/2021 8:45 am - SRAVANTHI Escamilla at [facility]/ A.M[facility]P. Urology * 06/20/2022 10:15 am - Ilan Dyer MD at [facility]/ A.M[facility] Urology 06/20/2021 - SRAVANTHI Escamilla* R97.20 [...]
--- OUTSIDE RECORDS SUMMARY | 2021-08-03 08:37 | CCD | Continuity of Care Document ---
Author Author Vasiliy DYER MD Organization Unknown Address [address] [place] [address] DR. Sudha green [address] [place] [address] Phone [phone] Care Team Providers Care Port Cdl A Driver Name Role Phone Waqar Del Angel M.D. AUTM [phone] Problems Active Problems Provider Date Benign prostatic [...] Lab REF TO ADDRESS ON ORDER FOR (783)- - Ua Glucose Negative Ua Protein Negative Ua Nitrite Negative Ua Leuko Negative Ua Blood Negative Ua Color Not Entered Ua Ketones Negative Ua Clarity Not Entered Ua Specific [place] 1.020 1.003-1.030 Ua PH 6.0 5.0-7.5 Ua Bilirubin Negative Ua Urobilinogen 0.2 E.U./dL 0.0-1.0 Laboratory test finding 06/14/2021 [facility]) [address] [place] [address] [phone] Prostatic Specific Ag Monitor 3.31 NG/ML Normal < 4.00 1 Laboratory test finding 05/29/2021 Laboratory Allia kye POB FX# [id number] [phone] Urine Culture SPECIMEN DESCRIP <SEE NOTE> 2 Standard UTI 05/29/2021 [facility] [place] Acinetobacter baumannii NOTDETECTED Normal Actinobaculum schaalii NOTDETECTED [...] Negative Ua Clarity Not Entered Ua Specific [place] 1.015 1.003-1.030 Ua PH 7.0 5.0-7.5 Ua Bilirubin Negative Ua Urobilinogen 0.2 E.U./dL 0.0-1.0 Laboratory test finding 05/15/2021 [facility] ([place]) [address] [place], [place] [address] [phone] PSA Screening 3.37 NG/ML Normal < 4.00 8 1 The PSA assay is performed o n the Siemens [place] analyzer by LOCI sandwich chemiluminescent immunoassay and [...] assay is performed o n the Siemens [place] analyzer by LOCI sandwich chemiluminescent immunoassay and should not be compared interchangeably with other methods. It should not be used alone as a screening test or diagnosis for the presence or absence of malignant disease. Predictions of disease recurrence should not be based solely on values obtained from serial patient serum values. Procedures Date Code Description Status 06/20/2021 82558 Office/Outpatient Established Lo w MDM 20-29 Min Completed 05/29/2021 91005 Office/Outpatient Established Mo d MDM 30-39 Min Completed 01/22/2017 [id number] Colonoscopy Completed Medical Devices Description No Information Available Encounters Type Date Location Provider Dx Diagnosis Office Visit 06/20/2021 10:00a [facility]/ [facility] Urol SRAVANTHI San R97.20 Elevated prostate specific a ntigen [PSA] N40.1 Benign prostatic hyperplasia with lower urinary tract symp R35.1 Nocturia N41.9 Inflammatory disease of pros ibrahim, unspecified Office Visit 05/29/2021 10:10a [facility]/ [facility] Urol mae Dyer MD N40.1 Benign prostatic [...] 08/08/2021 8:45 am - SRAVANTHI Escamilla at [facility]/ A.M[facility]P. Urology * 06/20/2022 10:15 am - Ilan Dyer MD at [facility]/ A.M.P[facility] Urology 06/20/2021 - SRAVANTHI Escamilla* R97.20 [...]
--- OUTSIDE RECORDS SUMMARY | 2021-08-03 08:37 | CCD | Continuity of Care Document ---
Author Author Vasiliy KAUR MD Organization Unknown Address [address] [place] [address] Phone [phone] Care Team Providers Care Hammer Heater Name Role Phone Waqar Del Angel M.D. AUTM [phone] Problems Active Problems Provider Date Benign prostatic [...] Daily Capsules 1 by mouth every day 30aleksey Arcos.440 Maurice Ugalde MD 7 Multivitamins Tablets daily [...] Range Note Laboratory test finding 05/29/2021 Laboratory [facility] FX# [id number] [phone] Urine Culture SPECIMEN DESCRIP <SEE NOTE> 1 Standard UTI 05/29/2021 [facility] [place] Acinetobacter baumannii NOTDETECTED Normal Actinobaculum schaalii NOTDETECTED [...] Negative Ua Clarity Not Entered Ua Specific [place] 1.015 1.003-1.030 Ua PH 7.0 5.0-7.5 Ua Bilirubin Negative Ua Urobilinogen 0.2 E.U./dL 0.0-1.0 Laboratory test finding 05/15/2021 [facility]) [address] [place] [address] [phone] PSA Screening 3.37 NG/ML Normal < 4.00 7 1 SPECIMEN DESCRIPTION MIDSTREAM URINE,CLEAN CATCH CULTURE RESULTS NO GROWTH REPORT STATUS FINAL 05/30/2021 2 NOTDETECTED NOTDETECTED NOTDETECTED NOTDETECTED 3 NOTDETECTED 4 NOTDETECTED NOTDETECTED NOTDETECTED 5 NOTDETECTED 6 Electronically signed by : Flo Damon on :05/30/2021 00:02:24 7 The PSA assay is performed o n the Siemens [place] analyzer by LOCI sandwich chemiluminescent immunoassay and should not be compared interchangeably with other methods. It should not be used alone as a screening test or diagnosis for the presence or absence of malignant disease. Predictions of disease recurrence should not be based solely on values obtained from serial patient serum values. Procedures Date Code Description Status 05/29/2021 33921 Office/Outpatient Established Mo d MDM 30-39 Min Completed 01/22/2017 [id number] Colonoscopy Completed Medical Devices Description No Information Available Encounters Type Date Location Provider Dx Diagnosis Office Visit 05/29/2021 10:10a [facility]/ A.M[facility]P. Urol ogy Ilan Dyer MD N40.1 [...] 06/20/2021 10:00 am - SRAVANTHI Escamilla at [facility]/ A.M[facility]P. Urology 05/29/2021 - Ilan Dyer MD* [...]
--- OUTSIDE RECORDS SUMMARY | 2021-08-03 08:37 | CCD | Continuity of Care Document ---
Author Vasiliy Ch PA Organization Unknown Address [address] [place] [address] DR. Sudha green [address] [place] [address] Phone [phone] Care Team Providers Care Motorcycle Delivery Driver Name Role Phone Waqar Del Angel M.D. AUTM [phone] Problems Active Problems Provider Date Benign prostatic [...] Lab REF TO ADDRESS ON ORDER FOR (459)- - Ua Glucose Negative Ua Protein Negative Ua Nitrite Negative Ua Leuko Negative Ua Blood Negative Ua Color Not Entered Ua Ketones Negative Ua Clarity Not Entered Ua Specific [place] 1.020 1.003-1.030 Ua PH 6.0 5.0-7.5 Ua Bilirubin Negative Ua Urobilinogen 0.2 E.U./dL 0.0-1.0 Laboratory test finding 06/14/2021 [facility]) [address] [place] [address] [phone] Prostatic Specific Ag Monitor 3.31 NG/ML Normal < 4.00 1 Laboratory test finding 05/29/2021 Laboratory Allia pae [facility] FX# [id number] [phone] Urine Culture SPECIMEN DESCRIP <SEE NOTE> 2 Standard UTI 05/29/2021 [facility] [place] Acinetobacter baumannii NOTDETECTED Normal Actinobaculum schaalii NOTDETECTED [...] Negative Ua Clarity Not Entered Ua Specific [place] 1.015 1.003-1.030 Ua PH 7.0 5.0-7.5 Ua Bilirubin Negative Ua Urobilinogen 0.2 E.U./dL 0.0-1.0 Laboratory test finding 05/15/2021 [facility] ([place]) [address] [place] [address] [phone] PSA Screening 3.37 NG/ML Normal < 4.00 8 1 The PSA assay is performed o n the Siemens [place] analyzer by LOCI sandwich chemiluminescent immunoassay and [...] assay is performed o n the Siemens [place] analyzer by LOCI sandwich chemiluminescent immunoassay and should not be compared interchangeably with other methods. It should not be used alone as a screening test or diagnosis for the presence or absence of malignant disease. Predictions of disease recurrence should not be based solely on values obtained from serial patient serum values. Procedures Date Code Description Status 06/20/2021 50601 Office/Outpatient Established Lo w MDM 20-29 Min Completed 05/29/2021 41834 Office/Outpatient Established Mo d MDM 30-39 Min Completed 01/22/2017 [id number] Colonoscopy Completed Medical Devices Description No Information Available Encounters Type Date Location Provider Dx Diagnosis Office Visit 06/20/2021 10:00a [facility]/ A.M[facility]. Urol SRAVANTHI San R97.20 Elevated prostate specific a ntigen [PSA] N40.1 Benign prostatic hyperplasia with lower urinary tract symp R35.1 Nocturia N41.9 Inflammatory disease of pros ibrahim, unspecified Office Visit 05/29/2021 10:10a [facility]/ A.M[facility]P. Urol mae Dyer MD [...] 08/08/2021 8:45 am - SRAVANTHI Escamilla at [facility]/ A.M[facility]P. Urology * 06/20/2022 10:15 am - Ilan Dyer MD at [facility]/ A.M.P. Urology 06/20/2021 - SRAVANTHI [...]
--- OUTSIDE RECORDS SUMMARY | 2021-08-03 08:37 | CCD | Continuity of Care Document ---
Author Vasiliy Ch PA Organization Unknown Address [address] [place] [address] DR. Sudha green [address] [place] [address] Phone [phone] Care Team Providers Care Disciplinary Hearing Officer Name Role Phone Waqar Del Angel M.D. AUTM [phone] Problems Active Problems Provider Date Benign prostatic [...] Lab REF TO ADDRESS ON ORDER FOR (817)- - Ua Glucose Negative Ua Protein Negative Ua Nitrite Negative Ua Leuko Negative Ua Blood Negative Ua Color Not Entered Ua Ketones Negative Ua Clarity Not Entered Ua Specific [place] 1.020 1.003-1.030 Ua PH 6.0 5.0-7.5 Ua Bilirubin Negative Ua Urobilinogen 0.2 E.U./dL 0.0-1.0 Laboratory test finding 06/14/2021 [facility]) [address] [place] [address] [phone] Prostatic Specific Ag Monitor 3.31 NG/ML Normal < 4.00 1 Laboratory test finding 05/29/2021 Laboratory Allia ale POB FX# [id number] [phone] Urine Culture SPECIMEN DESCRIP <SEE NOTE> 2 Standard UTI 05/29/2021 [facility] [place] Acinetobacter baumannii NOTDETECTED Normal Actinobaculum schaalii NOTDETECTED [...] Negative Ua Clarity Not Entered Ua Specific [place] 1.015 1.003-1.030 Ua PH 7.0 5.0-7.5 Ua Bilirubin Negative Ua Urobilinogen 0.2 E.U./dL 0.0-1.0 Laboratory test finding 05/15/2021 [facility] ([place]) [address] [place] [address] [phone] PSA Screening 3.37 NG/ML Normal < 4.00 8 1 The PSA assay is performed o n the Siemens [place] analyzer by LOCI sandwich chemiluminescent immunoassay and [...] assay is performed o n the Siemens [place] analyzer by LOCI sandwich chemiluminescent immunoassay and should not be compared interchangeably with other methods. It should not be used alone as a screening test or diagnosis for the presence or absence of malignant disease. Predictions of disease recurrence should not be based solely on values obtained from serial patient serum values. Procedures Date Code Description Status 06/20/2021 51065 Office/Outpatient Established Lo w MDM 20-29 Min Completed 05/29/2021 00287 Office/Outpatient Established Mo d MDM 30-39 Min Completed 01/22/2017 [id number] Colonoscopy Completed Medical Devices Description No Information Available Encounters Type Date Location Provider Dx Diagnosis Office Visit 06/20/2021 10:00a [facility]/ A.M[facility] Urol SRAVANTHI San R97.20 Elevated prostate specific a ntigen [PSA] N40.1 Benign prostatic hyperplasia with lower urinary tract symp R35.1 Nocturia N41.9 Inflammatory disease of pros ibrahim, unspecified Office Visit 05/29/2021 10:10a [facility]/ A.M[facility]P. Urol mae Dyer MD N40.1 [...] 08/08/2021 8:45 am - SRAVANTHI Escamilla at [facility]/ A.M[facility]P. Urology * 06/20/2022 10:15 am - Ilan Dyer MD at [facility]/ A.M.P. Urology 06/20/2021 - SRAVANTHI Escamilla* R97.20 [...]
--- OUTSIDE RECORDS SUMMARY | 2021-08-03 08:37 | CCD | Continuity of Care Document ---
Author Vasiliy Ch PA Organization Unknown Address [address] [place] [address] DR. Sudha green [address] [place] [address] Phone [phone] Care Team Providers Care Health Promotion Officer Name Role Phone Waqar Del Angel M.D. AUTM [phone] Problems Active Problems Provider Date Benign prostatic [...] Lab REF TO ADDRESS ON ORDER FOR (346)- - Ua Glucose Negative Ua Protein Negative Ua Nitrite Negative Ua Leuko Negative Ua Blood Negative Ua Color Not Entered Ua Ketones Negative Ua Clarity Not Entered Ua Specific [place] 1.020 1.003-1.030 Ua PH 6.0 5.0-7.5 Ua Bilirubin Negative Ua Urobilinogen 0.2 E.U./dL 0.0-1.0 Laboratory test finding 06/14/2021 [facility]) [address] [place] [address] [phone] Prostatic Specific Ag Monitor 3.31 NG/ML Normal < 4.00 1 Laboratory test finding 05/29/2021 Laboratory Allia rie POB FX# [id number] [phone] Urine Culture SPECIMEN DESCRIP <SEE NOTE> 2 Standard UTI 05/29/2021 [facility] [place] Acinetobacter baumannii NOTDETECTED Normal Actinobaculum schaalii NOTDETECTED [...] Negative Ua Clarity Not Entered Ua Specific [place] 1.015 1.003-1.030 Ua PH 7.0 5.0-7.5 Ua Bilirubin Negative Ua Urobilinogen 0.2 E.U./dL 0.0-1.0 Laboratory test finding 05/15/2021 [facility] ([place]) [address] [place] [address] [phone] PSA Screening 3.37 NG/ML Normal < 4.00 8 1 The PSA assay is performed o n the Siemens [place] analyzer by LOCI sandwich chemiluminescent immunoassay and [...] assay is performed o n the Siemens [place] analyzer by LOCI sandwich chemiluminescent immunoassay and should not be compared interchangeably with other methods. It should not be used alone as a screening test or diagnosis for the presence or absence of malignant disease. Predictions of disease recurrence should not be based solely on values obtained from serial patient serum values. Procedures Date Code Description Status 06/20/2021 46896 Office/Outpatient Established Lo w MDM 20-29 Min Completed 05/29/2021 98057 Office/Outpatient Established Mo d MDM 30-39 Min Completed 01/22/2017 [id number] Colonoscopy Completed Medical Devices Description No Information Available Encounters Type Date Location Provider Dx Diagnosis Office Visit 06/20/2021 10:00a [facility]/ A[facility] Urol SRAVANTHI San R97.20 Elevated prostate specific a ntigen [PSA] N40.1 Benign prostatic hyperplasia with lower urinary tract symp R35.1 Nocturia N41.9 Inflammatory disease of pros ibrahim, unspecified Office Visit 05/29/2021 10:10a [facility]/ A.M[facility]P. Urol mae Dyer MD N40.1 Benign [...] 08/08/2021 8:45 am - SRAVANTHI Escamilla at [facility]/ A.M.P. Urology * 06/20/2022 10:15 am - Ilan Dyer MD at [facility]/ A.M.P. Urology 06/20/2021 - SRAVANTHI Escamilla* R97.20 [...]
--- OUTSIDE RECORDS SUMMARY | 2021-08-03 08:37 | CCD | Continuity of Care Document ---
Author Vasiliy Ch PA Organization Unknown Address [address] [place] [address] DR. Sudha green [address] [place] [id number] Phone [phone] Care Team Providers Care Yard Coupler Name Role Phone Waqar Del Angel M.D. AUTM [phone] Problems Active Problems Provider Date Benign prostatic [...] Lab REF TO ADDRESS ON ORDER FOR (812)- - Ua Glucose Negative Ua Protein Negative Ua Nitrite Negative Ua Leuko Negative Ua Blood Negative Ua Color Not Entered Ua Ketones Negative Ua Clarity Not Entered Ua Specific Ione 1.020 1.003-1.030 Ua PH 6.0 5.0-7.5 Ua Bilirubin Negative Ua Urobilinogen 0.2 E.U./dL 0.0-1.0 Laboratory test finding 06/14/2021 [facility]) [address] [place] [address] [phone] Prostatic Specific Ag Monitor 3.31 NG/ML Normal < 4.00 1 Laboratory test finding 05/29/2021 [facility] FX# [id number] [phone] Urine Culture SPECIMEN DESCRIP <SEE NOTE> 2 Standard UTI 05/29/2021 [facility] [place] Acinetobacter baumannii NOTDETECTED Normal Actinobaculum schaalii NOTDETECTED [...] Negative Ua Clarity Not Entered Ua Specific Ione 1.015 1.003-1.030 Ua PH 7.0 5.0-7.5 Ua Bilirubin Negative Ua Urobilinogen 0.2 E.U./dL 0.0-1.0 Laboratory test finding 05/15/2021 [facility] ([place]) [address] [place] [address] [phone] PSA Screening 3.37 NG/ML Normal < 4.00 8 1 The PSA assay is performed o n the Siemens Princeton analyzer by LOCI sandwich chemiluminescent immunoassay and [...] assay is performed o n the Siemens Princeton analyzer by LOCI sandwich chemiluminescent immunoassay and should not be compared interchangeably with other methods. It should not be used alone as a screening test or diagnosis for the presence or absence of malignant disease. Predictions of disease recurrence should not be based solely on values obtained from serial patient serum values. Procedures Date Code Description Status 06/20/2021 07691 Office/Outpatient Established Lo w MDM 20-29 Min Completed 05/29/2021 04263 Office/Outpatient Established Mo d MDM 30-39 Min Completed 01/22/2017 [id number] Colonoscopy Completed Medical Devices Description No Information Available Encounters Type Date Location Provider Dx Diagnosis Office Visit 06/20/2021 10:00a [facility] SRAVANTHI San R97.20 Elevated prostate specific a ntigen [PSA] N40.1 Benign prostatic hyperplasia with lower urinary tract symp R35.1 Nocturia N41.9 Inflammatory disease of pros ibrahim, unspecified Office Visit 05/29/2021 10:10a [facility]/ [facility] mae Dyer MD N40.1 Benign [...] 08/08/2021 8:45 am - SRAVANTHI Escamilla at [facility]/ [facility] * 06/20/2022 10:15 am - Ilan Dyer MD at [facility]/ [facility] 06/20/2021 - SRAVANTHI Escamilla* R97.20 [...]
--- OUTSIDE RECORDS SUMMARY | 2021-08-03 08:37 | CCD | Continuity of Care Document ---
Author Author Vasiliy HENDRICKS Organization Unknown Address [address] [place] [address] [place] [address] Phone [phone] Problems Description No Information Available Social History Type Date Description Comments Sex Unknown ETOH Use Rarely consumes alcohol Tobacco Use Start: Unknown The patient has never vaped Tobacco Use Start: Unknown Patient has never smoked Allergies, Adverse Reactions, Alerts Active Allergies Criticality Reaction | Severity Comments Date Sulfa Unable to assess criticality angioedema 06/03/2021 Inactive Allergies NKDA Unable to assess criticality 06/03/2021 Medications Active Medications SIG Qnty Indications Ordering Provide r Date Prednisone 20mg Tablets take one tablet twice a day x 5 days 10tabs L03.211 Benito Chapin JR. 06/03/2021 Atorvastatin Calcium Unknown Rapaflo Unknown Amlodipine Besylate Unknown Probiotic Unknown Aspirin Unknown Multivitamin Unknown Medications Administered in Office Medication SIG Qnty Indications Ordering Provider Date Methylprednisolone Sodium Succinate To 1 25 MG Injection SRAVANTHI Gentile 05/14 Benadryl/Diphenhydramine Hci Injectionto 50 MG Injection SRAVANTHI Gentile Immunizations Description No Information Available Vital Signs Date Vital Result Comment 06/03/2021 8:19am BP Systolic 124 mmHg BP Diastolic 75 mmHg Heart Rate 67 /min Respiratory Rate 15 /min O2 % BldC Oximetry 99 % Body Temperature 98.0 F Weight 160.00 lb Height 64 inches 5'4" BMI (Body Mass Index) 27.5 kg/m2 Pain Level 7 Results Description No Information Available Procedures Date Code Description Status 06/03/2021 55041 Office/Outpatient New Low MDM 30 -44 Minutes Completed 06/03/2021 30907 Therapeutic, Prophylactic Or Michelle gnostic Injection Subq/Im Completed 06/03/2021 29064 Therapeutic, Prophylactic Or Michelle gnostic Injection Subq/Im Completed Medical Devices Description No Information Available Encounters Type Date Location Provider Dx Diagnosis Office Visit 06/03/2021 8:25a Main Office SRAVANTHI Gentile L03 .211 Cellulitis of face Z88.2 Allergy status to sulfonamid es Assessments Date Code Description Provider 06/03/2021 L03.211 Cellulitis of face SRAVANTHI Buenrostro 06/03/2021 Z88.2 Allergy status to sulfonamides SRAVANTHI Johnson Plan of Treatment No Information Available Functional Status Description No Information Available Mental Status Description No Information Available Referrals Description No Information Available
--- OUTSIDE RECORDS SUMMARY | 2021-08-03 08:38 | CCD ---
Author Author [facility] Organization [facility] Address Unknown Phone Unavailable Care Team Providers Care Enrollment Clerk Name Role Phone HARDY NELSON Unavailable Unavailable Pham RIVERA MD Unavailable Unavailable Pham RIVERA MD Unavailable Unavailable Pham RIVERA MD Unavailable Unavailable Pham RIVERA MD Unavailable Unavailable Pham RIVERA MD Unavailable Unavailable Pham RIVERA MD Unavailable Unavailable Pham RIVERA MD Unavailable Unavailable Pham RIVERA MD Unavailable Unavailable Pham RIVERA MD Unavailable Unavailable Pham RIVERA MD Unavailable Unavailable Pham RIVERA MD Unavailable Unavailable Pham RIVERA MD Unavailable Unavailable Pham RIVERA MD Unavailable Unavailable Pham RIVERA MD Unavailable Unavailable Pham RIVERA MD Unavailable Unavailable Pham RIVERA MD Unavailable Unavailable Pham RIVERA MD Unavailable Unavailable Pham RIVERA MD Unavailable Unavailable Pham RIVERA MD Unavailable Unavailable Pham RIVERA MD Unavailable Unavailable Pham RIVERA MD Unavailable Unavailable Pham RIVERA MD Unavailable Unavailable Pham RIVERA MD Unavailable Unavailable Pham RIVERA MD Unavailable Unavailable Pham RIVERA MD Unavailable Unavailable Pham RIVERA MD Unavailable Unavailable MADSERGOOOPham MD Unavailable Unavailable MADISSOOPham MD Unavailable Unavailable MADISSOOPham MD Unavailable Unavailable MADISSOOPham MD Unavailable Unavailable MADISSOOPham MD Unavailable Unavailable MADSERGOOO, Pham MATHEWS MD Unavailable Unavailable MADSERGOOOPham MD Unavailable Unavailable MADISSOOPham MD Unavailable Unavailable MADISSOOPham MD Unavailable Unavailable MADISSOO, Pham MATHEWS MD Unavailable Unavailable MADISSOOPham MD Unavailable Unavailable MADISSOO, Pham MATHEWS MD Unavailable Unavailable MADISSOO, Pham MATHEWS MD Unavailable Unavailable MADISSOO, Pham MATHEWS MD Unavailable Unavailable MADISSOO, Pham MATHEWS MD Unavailable Unavailable MADISSOO, Pham MATHEWS MD Unavailable Unavailable MADISSOO, M REID PICKENS Unavailable Unavailable MADISSOO, Pham MATHEWS MD Unavailable Unavailable MADISSOO, Pham MATHEWS MD Unavailable Unavailable MADISSOO, Pham MATHEWS MD Unavailable Unavailable MADISSOOPham MD Unavailable Unavailable MADISSOO, Pham MATHEWS MD Unavailable Unavailable MADISSOOPham MD Unavailable Unavailable MADISSOOPham MD Unavailable Unavailable MADISSOOPham MD Unavailable Unavailable MADISSOOPham MD Unavailable Unavailable MADSERGOOOPham MD Unavailable Unavailable MADISSOOPham MD Unavailable Unavailable MADISSOOPham MD Unavailable Unavailable MADISSOOPham MD Unavailable Unavailable MADSERGOOOPham MD Unavailable Unavailable PETEROOPham MD Unavailable Unavailable PETEROOPham MD Unavailable Unavailable PETEROOPham MD Unavailable Unavailable MADISSOOPham MD Unavailable Unavailable MADISSOOPham MD Unavailable Unavailable MADSERGOOOPham MD Unavailable Unavailable MADSERGOOOPham MD Unavailable Unavailable PETEROOPham MD Unavailable Unavailable PETEROOPham MD Unavailable Unavailable MADSERGOOOPham MD Unavailable Unavailable MADSERGOOOPham MD Unavailable Unavailable MADISSOOPham MD Unavailable Unavailable MADSERGOOOPham MD Unavailable Unavailable MADSERGOOOPham MD Unavailable Unavailable MADSERGOOOPham MD Unavailable Unavailable MADISSOOPham MD Unavailable Unavailable MADISSOO, Pham MATHEWS MD Unavailable Unavailable MADISSOO, Pham MATHEWS MD Unavailable Unavailable MADISSOO, Pham MATHEWS MD Unavailable Unavailable MADISSOO, Pham MATHEWS MD Unavailable Unavailable MADISSOO, Pham MATHEWS MD Unavailable Unavailable MADISSOO, Pham MATHEWS MD Unavailable Unavailable MADISSOO, Pham MATHEWS MD Unavailable Unavailable MADISSOO, Pham MATHEWS MD Unavailable Unavailable MADISSOO, Pham MATHEWS MD Unavailable Unavailable MADISSOO, Pham MATHEWS MD Unavailable Unavailable MADISSOO, Pham MATHEWS MD Unavailable Unavailable MADISSOO, Pham MATHEWS MD Unavailable Unavailable LETTIERE, A RANDALL PA Unavailable Unavailable LETTIERE, A RANDALL PA Unavailable Unavailable LETTIERE, A RANDALL PA Unavailable Unavailable LETTIERE, A RANDALL PA Unavailable Unavailable LETTIERE, A RANDALL PA Unavailable Unavailable LETTIERE, A RANDALL PA Unavailable Unavailable LETTIERE, A RANDALL PA Unavailable Unavailable LETTIERE, A RANDALL PA Unavailable Unavailable LETTIERE, A RANDALL PA Unavailable Unavailable LETTIERE, A RANDALL PA Unavailable Unavailable LETTIERE, A RANDALL PA Unavailable Unavailable LETTIERE, A RANDALL PA Unavailable Unavailable LETTIERE, A RANDALL PA Unavailable Unavailable LETTIERE, A RANDALL PA Unavailable Unavailable LETTIERE, A RANDALL PA Unavailable Unavailable LETTIERE, A RANDALL PA Unavailable Unavailable LETTIERE, A RANDALL PA Unavailable Unavailable LETTIERE, A RANDALL PA Unavailable Unavailable LETTIERE, A RANDALL PA Unavailable Unavailable LETTIERE, A RANDALL PA Unavailable Unavailable LETTIERE, A RANDALL PA Unavailable Unavailable LETTIERE, A RANDALL PA Unavailable Unavailable LETTIERE, A RANDALL PA Unavailable Unavailable LETTIERE, A RANDALL PA Unavailable Unavailable LETTIERE, A RANDALL PA Unavailable Unavailable LETTIERE, A RANDALL PA Unavailable Unavailable LETTIERE, A RANDALL PA Unavailable Unavailable LETTIERE, A RANDALL PA Unavailable Unavailable LETTIERE, A RANDALL PA Unavailable Unavailable LETTIERE, A RANDALL PA Unavailable Unavailable LETTIERE, A RANDALL PA Unavailable Unavailable [place]banks, D Riya CLOTH NEUTRALIZER-C Unavailable Unavailable [place], D Riya CLOTH NEUTRALIZER-C Unavailable Unavailable [place], D Riya CLOTH NEUTRALIZER-C Unavailable Unavailable [place], D Riya CLOTH NEUTRALIZER-C Unavailable Unavailable [place], D Riya CLOTH NEUTRALIZER-C Unavailable Unavailable [place], D Riya CLOTH NEUTRALIZER-C Unavailable Unavailable [place], D Riya CLOTH NEUTRALIZER-C Unavailable Unavailable KADURA, SUHAYB Unavailable Unavailable Agueda YOUNGA REPAIRER SWITCHGEAR Unavailable Unavailable ZABOROWSKI, Agueda LARSONA REPAIRER SWITCHGEAR Unavailable Unavailable ZABOROWSKI, Agueda LARSONA REPAIRER SWITCHGEAR Unavailable Unavailable ZABOROWSKI, J CARIDAD REPAIRER SWITCHGEAR Unavailable Unavailable ZABOROWSKI, J CARIDAD REPAIRER SWITCHGEAR Unavailable Unavailable ZABOROWSKI, J CARIDAD REPAIRER SWITCHGEAR Unavailable Unavailable ZABOROWSKI, J CARIDAD REPAIRER SWITCHGEAR Unavailable Unavailable ZABOROWSKI, J CARIDAD REPAIRER SWITCHGEAR Unavailable Unavailable ZABOROWSKI, J CARIADD REPAIRER SWITCHGEAR Unavailable Unavailable ZABOROWSKI, J CARIDAD REPAIRER SWITCHGEAR Unavailable Unavailable ZABOROWSKI, J CARIDAD REPAIRER SWITCHGEAR Unavailable Unavailable ZABOROWSKI, J CARIDAD REPAIRER SWITCHGEAR Unavailable Unavailable ZABOROWSKI, J CARIDAD REPAIRER SWITCHGEAR Unavailable Unavailable ZABOROWSKI, J CARIDAD REPAIRER SWITCHGEAR Unavailable Unavailable ZABOROWSKI, J CARIDAD REPAIRER SWITCHGEAR Unavailable Unavailable ZABOROWSKI, J CARIDAD REPAIRER SWITCHGEAR Unavailable Unavailable ZABOROWSKI, J CARIDAD REPAIRER SWITCHGEAR Unavailable Unavailable ZABOROWSKI, J CARIDAD REPAIRER SWITCHGEAR Unavailable Unavailable ZABOROWSKI, J CARIDAD REPAIRER SWITCHGEAR Unavailable Unavailable ZABOROWSKI, J CARIDAD REPAIRER SWITCHGEAR Unavailable Unavailable ZABOROWSKI, J CARIDAD REPAIRER SWITCHGEAR Unavailable Unavailable ZABOROWSKI, J CARIDAD REPAIRER SWITCHGEAR Unavailable Unavailable ZABOROWSKI, J CARIDAD REPAIRER SWITCHGEAR Unavailable Unavailable ZABOROWSKI, J CARIDAD REPAIRER SWITCHGEAR Unavailable Unavailable ZABOROWSKI, J CARIDAD REPAIRER SWITCHGEAR Unavailable Unavailable ZABOROWSKI, J CARIDAD REPAIRER SWITCHGEAR Unavailable Unavailable ZABOROWSKI, J CARIDAD REPAIRER SWITCHGEAR Unavailable Unavailable ZABOROWSKI, J CARIDAD REPAIRER SWITCHGEAR Unavailable Unavailable ZABOROWSKI, J CARIDAD REPAIRER SWITCHGEAR Unavailable Unavailable ZABOROWSKI, J CARIDAD REPAIRER SWITCHGEAR Unavailable Unavailable ZABOROWSKI, J CARIDAD REPAIRER SWITCHGEAR Unavailable Unavailable ZABOROWSKI, J CARIDAD REPAIRER SWITCHGEAR Unavailable Unavailable ZABOROWSKI, J CARIDAD REPAIRER SWITCHGEAR Unavailable Unavailable ZABOROWSKI, J CARIDAD REPAIRER SWITCHGEAR Unavailable Unavailable ZABOROWSKI, J CARIDAD REPAIRER SWITCHGEAR Unavailable Unavailable ZABOROWSKI, J CARIDAD REPAIRER SWITCHGEAR Unavailable Unavailable ZABOROWSKI, J CARIDAD REPAIRER SWITCHGEAR Unavailable Unavailable ZABOROWSKI, J CARIDAD REPAIRER SWITCHGEAR Unavailable Unavailable ZABOROWSKI, J CARIDAD REPAIRER SWITCHGEAR Unavailable Unavailable ZABOROWSKI, J CARIDAD REPAIRER SWITCHGEAR Unavailable Unavailable ZABOROWSKI, J CARIDAD REPAIRER SWITCHGEAR Unavailable Unavailable ZABOROWSKI, J CARIDAD REPAIRER SWITCHGEAR Unavailable Unavailable ZABOROWSKI, J CARIDAD REPAIRER SWITCHGEAR Unavailable Unavailable ZABOROWSKI, J CARIDAD REPAIRER SWITCHGEAR Unavailable Unavailable ZABOROWSKI, J CARIDAD REPAIRER SWITCHGEAR Unavailable Unavailable ZABOROWSKI, J CARIDAD REPAIRER SWITCHGEAR Unavailable Unavailable ZABOROWSKI, J CARIDAD REPAIRER SWITCHGEAR Unavailable Unavailable ZABOROWSKI, J CARIDAD REPAIRER SWITCHGEAR Unavailable Unavailable Heena GALVEZ MD Unavailable Unavailable Heena GALVEZ MD Unavailable Unavailable Heena GALVEZ MD Unavailable Unavailable Heena GALVEZ MD Unavailable Unavailable Heena GALVEZ MD Unavailable Unavailable Heena GALVEZ MD Unavailable Unavailable Heena GALVEZ MD Unavailable Unavailable FISCHI, Heena PEREIRA MD Unavailable Unavailable FISCHI, Heena PEREIRA MD Unavailable Unavailable FISCHI, Heena PEREIRA MD Unavailable Unavailable FISCHI, Heena PEREIRA MD Unavailable Unavailable FISCHI, Heena PEREIRA MD Unavailable Unavailable FISCHI, Heena PEREIRA MD Unavailable Unavailable FISCHI, Heena PERIERA MD Unavailable Unavailable FISCHI, Heena PEREIRA MD Unavailable Unavailable FISCHI, Heena PEREIRA MD Unavailable Unavailable FISCHI, Heena PEREIRA MD Unavailable Unavailable FISCHI, Heena PEREIRA MD Unavailable Unavailable FISCHI, Heena PEREIRA MD Unavailable Unavailable FISCHI, Heena PEREIRA MD Unavailable Unavailable FISCHI, Heena PEREIRA MD Unavailable Unavailable FISCHI, Heena PEREIRA MD Unavailable Unavailable FISCHI, Heena PEREIRA MD Unavailable Unavailable FISCHI, Heena PEREIRA MD Unavailable Unavailable FISCHI, Heena PEREIRA MD Unavailable Unavailable FISCHI, Heena PEREIRA MD Unavailable Unavailable FISCHI, Heena PEREIRA MD Unavailable Unavailable FISCHI, Heena PEREIRA MD Unavailable Unavailable FISCHI, Heena PEREIRA MD Unavailable Unavailable FISCHI, Heena PEREIRA MD Unavailable Unavailable FISCHI, Heena PEREIRA MD Unavailable Unavailable FISCHI, Heena PEREIRA MD Unavailable Unavailable FISCHI, Heena PEREIRA MD Unavailable Unavailable FISCHI, Heena PEREIRA MD Unavailable Unavailable FISCHI, Heena PEREIRA MD Unavailable Unavailable FISCHI, Heena PEREIRA MD Unavailable Unavailable FISCHI, Heena PEREIRA MD Unavailable Unavailable FISCHI, Heena PEREIRA MD Unavailable Unavailable FISCHI, Heena PEREIRA MD Unavailable Unavailable FISCHI, Heena PEREIRA MD Unavailable Unavailable FISCHI, Heena PEREIRA MD Unavailable Unavailable FISCHI, Heena PEREIRA MD Unavailable Unavailable FISCHI, Heena PEREIRA MD Unavailable Unavailable FISCHI, Heena PEREIRA MD Unavailable Unavailable FISCHI, Heena PEREIRA MD Unavailable Unavailable FISCHI, Heena PEREIRA MD Unavailable Unavailable FISCHI, Heena PEREIRA MD Unavailable Unavailable FISCHI, Heena PEREIRA MD Unavailable Unavailable FISCHI, Heena PEREIRA MD Unavailable Unavailable FISCHI, Heena PEREIRA MD Unavailable Unavailable FISCHI, Heena PEREIRA MD Unavailable Unavailable FISCHI, Heena PEREIRA MD Unavailable Unavailable FISCHI, Heena PEREIRA MD Unavailable Unavailable FISCHI, Heena PEREIRA MD Unavailable Unavailable FISCHI, Heena PEREIRA MD Unavailable Unavailable FISCHI, Heena PEREIRA MD Unavailable Unavailable FISCHI, Heena PEREIRA MD Unavailable Unavailable FISCHI, Heena PEREIRA MD Unavailable Unavailable FISCHI, Heena PEREIRA MD Unavailable Unavailable FISCHI, Heena PEREIRA MD Unavailable Unavailable FISCHI, Heena PEREIRA MD Unavailable Unavailable FISCHI, Heena PEREIRA MD Unavailable Unavailable FISCHI, Heena PEREIRA MD Unavailable Unavailable FISCHI, Heena PEREIRA MD Unavailable Unavailable FISCHI, Heena PEREIRA MD Unavailable Unavailable FISCHI, Heena PEREIRA MD Unavailable Unavailable FISCHI, Henea PEREIRA MD Unavailable Unavailable FISCHI, Heena PEREIRA MD Unavailable Unavailable FISCHI, Heena PEREIRA MD Unavailable Unavailable FISCHI, Heena PEREIRA MD Unavailable Unavailable FISCHI, Heena PEREIRA MD Unavailable Unavailable FISCHI, Heena PEREIRA MD Unavailable Unavailable FISNARAYAN, Heena PEREIRA MD Unavailable Unavailable FISNARAYAN, Heena PEREIRA MD Unavailable Unavailable FISCHI, Heena PEREIRA MD Unavailable Unavailable FISCHI, Heena PEREIRA MD Unavailable Unavailable FISCHI, Heena PEREIRA MD Unavailable Unavailable FISCHI, Heena PEREIRA MD Unavailable Unavailable Griffith, S Hiram RPA Unavailable Unavailable Griffith, S Hiram RPA Unavailable Unavailable Griffith, S Hiram RPA Unavailable Unavailable Griffith, S Hiram RPA Unavailable Unavailable Griffith, S Hiram RPA Unavailable Unavailable Griffith, S Hiram RPA Unavailable Unavailable Griffith, S Hiram RPA Unavailable Unavailable Griffith, S Hiram RPA Unavailable Unavailable Griffith, S Hiram RPA Unavailable Unavailable Griffith, S Hiram RPA Unavailable Unavailable Griffith, S Hiram RPA Unavailable Unavailable Griffith, S Hiram RPA Unavailable Unavailable Griffith, S Hiram RPA Unavailable Unavailable Griffith, S Hiram RPA Unavailable Unavailable Griffith, S Hriam RPA Unavailable Unavailable Griffith, S Hiram RPA Unavailable Unavailable Griffith, S Hiram RPA Unavailable Unavailable Griffith, S Hiram RPA Unavailable Unavailable Griffith, S Hiram RPA Unavailable Unavailable Griffith, S Hiram RPA Unavailable Unavailable Griffith, S Hiram RPA Unavailable Unavailable Griffith, S Hiram RPA Unavailable Unavailable Griffith, S Hiram RPA Unavailable Unavailable Griffith, S Hiram RPA Unavailable Unavailable Griffith, S Hiram RPA Unavailable Unavailable Griffith, S Hiram RPA Unavailable Unavailable Griffith, S Hiram RPA Unavailable Unavailable Griffith, S Hiram RPA Unavailable Unavailable Griffith, S Hiram RPA Unavailable Unavailable Griffith, S Hiram RPA Unavailable Unavailable Griffith, S Hiram RPA Unavailable Unavailable Griffith, S Hiram RPA Unavailable Unavailable Griffith, S Hiram RPA Unavailable Unavailable Griffith, S Hiram RPA Unavailable Unavailable Griffith, S Hiram RPA Unavailable Unavailable Griffith, S Hiram RPA Unavailable Unavailable Griffith, S Hiram RPA Unavailable Unavailable Griffith, S Hiram RPA Unavailable Unavailable Griffith, S Hiram RPA Unavailable Unavailable Griffith, S Hiram RPA Unavailable Unavailable Griffith, S Hiram RPA Unavailable Unavailable Griffith, S Hiram RPA Unavailable Unavailable Griffith, S Hiram RPA Unavailable Unavailable Griffith, S Hiram RPA Unavailable Unavailable Griffith, S Hiram RPA Unavailable Unavailable Griffith, S Hiram RPA Unavailable Unavailable Griffith, S Hiram RPA Unavailable Unavailable Griffith, S Hiram RPA Unavailable Unavailable Griffith, S Hiram RPA Unavailable Unavailable Griffith, S Hiram RPA Unavailable Unavailable Griffith, S Hiram RPA Unavailable Unavailable Griffith, S Hiram RPA Unavailable Unavailable Griffith, S Hiram RPA Unavailable Unavailable Griffith, S Hiram RPA Unavailable Unavailable Griffith, S Hiram RPA Unavailable Unavailable Nacho, S Hiram RPA Unavailable Unavailable Nacho, S Hiram RPA Unavailable Unavailable Nacho, S Hiram RPA Unavailable Unavailable Nacho, S Hiram RPA Unavailable Unavailable Nacho, S Hiram RPA Unavailable Unavailable Nacho, S Hiram RPA Unavailable Unavailable Nacho, S Hiram RPA Unavailable Unavailable Nacho, S Hiram RPA Unavailable Unavailable Nacho, S Hiram RPA Unavailable Unavailable Re-disclosure Warning The records that you are about to access may contain information from federally-assisted alcohol or drug abuse programs. If such information is present, then the following federally mandated warning applies: This information has been disclosed to you from records protected by federal confidentiality rules (42 CFR part 2). The federal rules prohibit you from making any further disclosure of this information unless further disclosure is expressly permitted by the written consent of the person to whom it pertains or as otherwise permitted by 42 CFR part 2. A general authorization for the release of medical or other information is NOT sufficient for this purpose. The Federal rules restrict any use of the information to criminally investigate or prosecute any alcohol or drug abuse patient.The records that you are about to access may contain highly sensitive health information, the redisclosure of which is protected by Article 27-F of the [facility] Public Health law. If you continue you may have access to information: Regarding HIV / AIDS; Provided by facilities licensed or operated by the [facility] Office of Mental Health; or Provided by the [facility] Office for People With Developmental Disabilities. If such information is present, then the following [facility] mandated warning applies: This information has been disclosed to you from confidential records which are protected by state law. State law prohibits you from making any further disclosure of this information without the specific written consent of the person to whom it pertains, or as otherwise permitted by law. Any unauthorized further disclosure in violation of state law may result in a fine or longterm sentence or both. A general authorization for the release of medical or other information is NOT sufficient authorization for further disc losure. Allergies and Adverse Reactions Type Description Substance Reaction Status Data Source(s ) Drug Allergy NKDA NKDA [facility] ([facility]) Drug Allergy Drug Allergy NKDA MEDENT ([facility]) Family History Family Member Name Family Member Gender Family Member Status Date o f Status Description Data Source(s) Unknown Male Problem [facility] ([facility] [place]) Unknown Unknown Problem [facility] ([facility]) Unknown Unknown Problem [facility] ([facility] ) Unknown Unknown Problem MEDENT ([facility] ) Encounters Encounter Providers Location Date Indications Data Source(s ) Outpatient Attender: HARDY Tovar nieves: HARDY NELSONConsultant: HARDY NELSON BF-BF 07/27/2021 12:00:00 AM EDT - 07/27/2021 11:57:32 AM EDT [facility] [place] [address] [facility] [address] 07/20/2021 12:00:00 AM EDT eCW1 ([facility]) [place] [address] [address] 07/19/2021 12:00:00 AM EDT eCW1 ([facility]) Outpatient Attender: Hiram Griffith RPA [place] 07/06/2021 01:15:00 PM EDT [facility] ([facility]) Outpatient Attender: Hiram Griffith RPA [place] 06/20/2021 10:00:00 AM EDT [facility] ([facility]) Outpatient Attender: RANDALL chen 06/03/2021 08:25:00 AM EDT [facility] ([facility]) Outpatient Attender: REID RIVERA MD [place] 05/29/2021 10:10:00 AM EDT [facility] ([facility] [place] [address] [address] 05/22/2021 12:00:00 AM EDT eCW1 ([facility]) Outpatient Attender: Riya JACKSON-C Main Office 05/03/2021 08:30:00 AM EDT MEDENT ([facility]) Outpatient Referrer: CARIDAD YOUNG NP BF-[facility] 01/02/2021 12:00:0 0 AM EDT [facility] Outpatient Attender: RANDALL GALVEZ MDA dmitter: RANDALL GALVEZ MDReferrer: RANDALL GALVEZ MD [email or web address] 12/29/2020 12:27:00 PM EDT - 12/29/2020 05:31:00 PM EDT [facility] Patient discharged. Outpatient Attender: CARIDAD YOUNG NP [facility] 12:00:00 AM EDT - 12/28/2020 12:04:20 PM EDT [facility] [place] [address] [address] 12/05/2020 12:00:00 AM EST eCW1 ([facility]) [place] [address] [place] [address] 12/05/2020 12:00:00 AM EST eCW1 ([facility]) [place] [address] [address] 09/27/2020 12:00:00 AM EST eCW1 ([facility]) [place] [address] [address] 07/19/2020 12:00:00 AM EDT eCW1 ([facility]) Immunizations Vaccine Date Status Description Data Source(s) COVID-19 VACC, MRNA(PFIZER)/PF 07/24/2021 12:00:00 AM EDT completed [facility] COVID-19 VACCINE Pfizer 07/24/2021 12:00:00 AM EDT completed [facility] Vaccine Series Complete: YESThis Data wa s Submitted to [facility] Via [employer]. COVID-19 dose #2 given elsewhere Unspecified 12/02/2020 06:1 0:00 AM EST completed eCW1 ([facility]) COVID-19 dose #2 given elsewhere Unspecified 12/02/2020 06:1 0:00 AM EST completed eCW1 ([facility]) COVID-19 dose #2 given elsewhere Unspecified 12/02/2020 06:1 0:00 AM EST completed eCW1 ([facility]) COVID-19 VACCINE Pfizer 12/02/2020 12:00:00 AM EST completed [facility] Vaccine Series Complete: YESThis Data wa s Submitted to [facility] Via [employer]. COVID-19 VACCINE, MRNA, [id number], LNP-S (PFIZER)/PF 12/02/19 21 12:00:00 AM EST completed [facility] COVID-19 dose #1 given elsewhere Unspecified 11/11/2020 06:0 9:00 AM EST completed eCW1 ([facility]) COVID-19 dose #1 given elsewhere Unspecified 11/11/2020 06:0 9:00 AM EST completed eCW1 ([facility]) COVID-19 dose #1 given elsewhere Unspecified 11/11/2020 06:0 9:00 AM EST completed eCW1 ([facility]) COVID-19 VACCINE Pfizer 11/11/2020 12:00:00 AM EST completed [facility] Vaccine Series Complete: NOThis Data was Submitted to [facility] Via [employer]. COVID-19 VACCINE, MRNA, [id number], LNP-S (PFIZER)/PF 11/11/19 12:00:00 AM EST completed [facility] influenza, recombinant, quadrIvalent,injectable, prese rvative free 07/19/2020 07:43:00 AM EDT completed eCW1 ([facility]) influenza, recombinant, quadrIvalent,injectable, prese rvative free 07/19/2020 07:43:00 AM EDT completed eCW1 ([facility]) influenza, recombinant, quadrIvalent,injectable, prese rvative free 07/19/2020 07:43:00 AM EDT completed eCW1 ([facility]) influenza, recombinant, quadrIvalent,injectable, prese rvative free 07/19/2020 07:43:00 AM EDT completed eCW1 ([facility]) influenza, recombinant, quadrIvalent,injectable, prese rvative free 07/19/2020 07:43:00 AM EDT completed eCW1 ([facility]) influenza, recombinant, quadrIvalent,injectable, prese rvative free 07/19/2020 07:43:00 AM EDT completed eCW1 ([facility]) influenza, recombinant, quadrIvalent,injectable, prese rvative free 07/19/2020 07:43:00 AM EDT completed eCW1 ([facility]) Medications Medication Brand Name Start Date Product Form Dose Route Admi nistrative Instructions Pharmacy Instructions Status Indications Reaction Description Data Source(s) 60 mcg (15 mcg x 4)/0.5 mL 07/24/2021 12:00:00 AM EDT syring e 0 INJECT IN RIGHT ARM DIRECTED INJECT IN RIGHT ARM DIRECTED SOLD: 07/24/2021 [facility] 5-325 mg 07/23/2021 12:00:00 AM EDT tablet 20 TAKE ONE TO TWO TABLETS BY MOUTH EVERY 6 HOURS NEEDED FOR POSTOPERATIVE PAIN MAXIMUM DAILY DOSE = 6 TAKE ONE TO TWO TABLETS BY MOUTH EVERY 6 HOURS NEEDED FOR POSTOPERATIVE PAIN MAXIMUM DAILY DOSE = 6 SOLD: 07/24/2021 [facility] benzonatate 100 MG Oral Capsule BENZONATATE 07/20/2021 12:00:00 AM EDT capsule 30 TAKE ONE CAPSULE BY MOUTH THREE TIMES A DAY NEEDED FOR 10 DAYS TAKE ONE CAPSULE BY MOUTH THREE TIMES A DAY NEEDED FOR 10 DAYS SOLD: 07/20/2021 [facility] Amoxicillin 875 MG Oral Tablet Amoxicillin 875 MG 07/20/2021 12:00: 00 AM EDT 1.0 {tablet} active Amoxicillin 875 MG eCW1 ([facility]) benzonatate 100 MG Oral Capsule Benzonatate 100 MG Benzonata te 100 MG 07/20/2021 12:00:00 AM EDT 1.0 {capsule_as_needed} active Benzonatate 100 MG eCW1 ([facility]) 875 mg 07/20/2021 12:00:00 AM EDT tablet 20 TAKE ONE TABLET BY MOUTH TWICE A DAY FOR 10 DAYS TAKE ONE TABLET BY MOUTH TWICE A DAY FOR 10 DAYS SOLD: 07/20/2021 [facility] 250 mg 07/06/2021 12:00:00 AM EDT tablet 20 TAKE ONE TABLET BY MOUTH TWICE A DAY FOR 10 DAYS TAKE ONE TABLET BY MOUTH TWICE A DAY FOR 10 DAYS SOLD: 07/06/2021 [facility] Ciprofloxacin 250 MG Oral Tablet Ciprofloxacin HCL 07/06/2021 12:00 :00 AM EDT ORAL active MEDENT ([facility]) 250 mg 06/04/2021 12:00:00 AM EDT capsule 14 TAKE ONE CAPSULE BY MOUTH TWICE A DAY FOR 7 DAYS TAKE ONE CAPSULE BY MOUTH TWICE A DAY FOR 7 DAYS SOLD: 06/04/2021 [facility] Cephalexin 250 MG Oral Capsule Cephalexin 06/04/2021 12:00:00 AM EDT ORAL completed [facility] 20 mg 06/03/2021 12:00:00 AM EDT tablet 10 TAKE ONE TABLET BY MOUTH TWICE A DAY FOR 5 DAYS TAKE ONE TABLET BY MOUTH TWICE A DAY FOR 5 DAYS SOLD: 2020 [facility] Methylprednisolone Sodium Succinate To 125 MG 06/03/2021 1 2:00:00 AM EDT completed MEDENT ([facility]) Medication administered onsite Benadryl/Diphenhydramine Hci Injectionto 50 MG 06/03/2021 12:00:00 AM EDT completed MEDENT ([facility]) Medication administered onsite Prednisone 20 MG Oral Tablet Prednisone 06/03/2021 12:00:00 AM EDT active MEDENT ([facility]) 800-160 mg 05/29/2021 12:00:00 AM EDT tablet 14 TAKE ONE TABLET BY MOUTH TWICE A DAY FOR 7 DAYS TAKE ONE TABLET BY MOUTH TWICE A DAY FOR 7 DAYS SOLD: 05/29/2021 [facility] Sulfamethoxazole 800 MG / Trimethoprim 160 MG Oral Tablet [B actrim] Bactrim DS 05/29/2021 12:00:00 AM EDT ORAL completed [facility] ([facility]) Nystatin [id number] UNT/ML Topical Cream Nystatin 05/03/2021 12:00:00 AM EDT active [facility]ENT ([facility]) 100,000 unit/gram 05/03/2021 12:00:00 AM EDT cream 60 APPLY TO GROIN TWO TIMES A DAY FOR 2 WEEKS THEN NEEDED FOR FLARES APPLY TO GROIN TWO TIMES A DAY FOR 2 WEEKS THEN NEEDED FOR FLARES SOLD: 05/04/2021 [facility] 1 % 02/07/2021 12:00:00 AM EDT gel 100 APPLY 4 GRAMS TO FOOT EVERY 6 HOURS NEEDED FOR PAIN APPLY 4 GRAMS TO FOOT EVERY 6 HOURS NEEDED FOR PAIN SOLD: 02/08/2021 [facility] Nitroglycerin 0.4 MG Sublingual Tablet n itroglycerin (NITROSTAT) SL tablet 0.4 mg nitroglycerin (NITROSTAT) SL tablet 0.4 mg 12/29/2020 03:36:16 P M EDT 0.4 mg Sublingual active 0.4 mg, S ublingual, Every 5 min PRN, chest pain, Starting Fri12/29/20 at 1536, Post-op
May administer every 5 minutes for 3 doses and call cardio lab MD.
[facility] Medication administered onsite Acetaminophen 325 MG Oral Tablet acetaminophen (TYLENO L) 325 MG tablet 650 mg acetaminophen (TYLENOL) 325 MG tablet 650 mg 12/29/2020 03:36:16 PM EDT 650 mg Oral active 650 mg, Or al, Every 4 hours PRN, headaches, and non cardiac pain, Starting Fri12/29/20 at 1536, Post-op
"Maximum dose of acetaminophen is 4,000 mg from all sources in 24 hours."
[facility] Medication administered onsite iopamidol (ISOVUE-370) 76 % [id number] 12/29/2020 02:56:05 PM EDT active As needed, Starting Fri12/29/20 at 1456, Intra-Procedu re [facility] Medication administered onsite 1 ML heparin sodium, porcine 1000 UNT/ML Injection hep leslee (porcine) injection heparin (porcine) injection 12/29/2020 02:46:19 PM EDT active As needed, Starting Fri12/29/20 at 1446, Intra-Procedure [facility] Medication administered onsite NITROGLYCERIN 0.4 MG/ML IV SOLN [id number] 12/29/2020 02:45:57 PM EDT active As needed, Starting 12/29 at 1445, Intra-Procedure [facility] Medication administered onsite lidocaine 1 % injection [id number] 12/29/2020 02:45:00 PM EDT active As needed, Starting Fri12/29/20 at 1445, Intra-Procedure [facility] Medication administered onsite 2 ML Midazolam 1 MG/ML Injection midazolam (VERSED) in jection midazolam (VERSED) injection 12/29/2020 02:43:21 PM EDT active As needed, Starting Fri12/29/20 at 1443, Intra-Procedure [facility] Medication administered onsite fentaNYL Citrate (PF) (SUBLIMAZE) injection [id number] 12/29/2020 02:43:07 PM EDT active As neede d, Starting Fri12/29/20 at 1443, Intra-Procedure [facility] Medication administered onsite normal saline flush 0.9 % injection 3 mL [id number] 12/29/2020 02:00:00 PM EDT 3 mL Intravenous active 3 mL , Intravenous, Every 8 hours (scheduled), First dose on Fri12/29/20 at 1400, Pre-op
Rapid push positive pressure flushing shall be performed with a 10 cc normal saline syringe to check the PATENCY of a PIV site prior to any infusion therapy initiation unless resistance is met.
[facility] Medication administered onsite sodium chloride 0.9% (NS) infusion [id number] 12/29/2020 02:00:00 PM EDT 100 mL/h Intravenous active at 100 m L/hr, 100 mL/hr, Intravenous, Continuous, Starting Fri12/29/20 at 1400, Pre-op [facility] Medication administered onsite 75 mg 12/28/2020 12:00:00 AM EDT tablet 4 TAKE 4 TABLETS BY MOUTH TONIGHT FOR 1 DOSE TAKE 4 TABLETS BY MOUTH TONIGHT FOR 1 DOSE SOLD: 12/28/2020 [facility] clopidogrel 300 MG Oral Tablet clopidogrel (PLAVIX) 30 0 MG TABS clopidogrel (PLAVIX) 300 MG TABS 12/28/2020 12:00:00 AM EDT 300 mg Oral aborted Take 1 tablet (300 mg total) by mouth once for 1 dose Take 1 tab tonight [facility] Amlodipine 2.5 MG Oral Tablet AMLODIPINE BESYLATE 12/22/2020 12: 00:00 AM EST tablet 30 TAKE ONE TABLET BY MOUTH EVERY D AY TAKE ONE TABLET BY MOUTH EVERY DAY SOLD: 02/17/2021 [facility] 2.5 mg 12/22/2020 12:00:00 AM EST tablet 30 TAKE ONE TABLET BY MOUTH EVERY DAY TAKE ONE TABLET BY MOUTH EVERY DAY SOLD: 12/22/2020 [facility] Amlodipine 2.5 MG Oral Tablet AMLODIPINE BESYLATE 12/22/2020 12: 00:00 AM EST tablet 30 TAKE ONE TABLET BY MOUTH EVERY D AY TAKE ONE TABLET BY MOUTH EVERY DAY SOLD: 01/17/2021 [facility] Amlodipine 2.5 MG Oral Tablet amLODIPine (NORVASC) 2.5 MG tablet amLODIPine (NORVASC) 2.5 MG tablet 12/22/2020 12:00:00 AM EST 2.5 mg Oral active Take 1 tablet (2.5 mg total) by mouth daily [facility] 2.5 mg 12/22/2020 12:00:00 AM EST tablet 30 TAKE ONE TABLET BY MOUTH EVERY DAY TAKE ONE TABLET BY MOUTH EVERY DAY SOLD: 05/20/2021 [facility] 2.5 mg 12/22/2020 12:00:00 AM EST tablet 30 TAKE ONE TABLET BY MOUTH EVERY DAY TAKE ONE TABLET BY MOUTH EVERY DAY SOLD: 06/18/2021 [facility] 2.5 mg 12/22/2020 12:00:00 AM EST tablet 30 TAKE ONE TABLET BY MOUTH EVERY DAY TAKE ONE TABLET BY MOUTH EVERY DAY SOLD: 03/19/2021 [facility] 2.5 mg 12/22/2020 12:00:00 AM EST tablet 30 TAKE ONE TABLET BY MOUTH EVERY DAY TAKE ONE TABLET BY MOUTH EVERY DAY SOLD: 04/17/2021 [facility] 2.5 mg 12/22/2020 12:00:00 AM EST tablet 30 TAKE ONE TABLET BY MOUTH EVERY DAY TAKE ONE TABLET BY MOUTH EVERY DAY SOLD: 07/17/2021 [facility] Sulfamethoxazole 800 MG / Trimethoprim 160 MG Oral Tab let 800-160 mg SULFAMETHOXAZOLE/TRIMETHOPRIM 12/05/2020 12:00:00 AM EST tablet 20 TAKE ONE TABLET BY MOUTH TWICE A DAY FOR 10 DAYS TAKE ONE TABLET BY MOUTH TWICE A DAY FOR 10 DAYS SOLD: 12/05/2020 [facility] Sulfamethoxazole 800 MG / Trimethoprim 1 60 MG Oral Tablet Sulfamethoxazole- Trimethoprim 800-160 MG Sulfamethoxazole-Trimethoprim 800-160 MG 12/05/2020 12:00:00 AM EST 1.0 {tablet} active Sulfamethoxazole-Trimethoprim 800-160 MG eCW1 ([facility]) Sulfamethoxazole 800 MG / Trimethoprim 1 60 MG Oral Tablet Sulfamethoxazole- Trimethoprim 800-160 MG Sulfamethoxazole-Trimethoprim 800-160 MG 12/05/2020 12:00:00 AM EST 1.0 {tablet} active Sulfamethoxazole-Trimethoprim 800-160 MG eCW1 ([facility]) Insurance Providers Payer name Policy type / Coverage type Policy ID Covered democrat ID Covered democrat's relationship to alvarez Policy Alvarez Plan Information POMCO [id number] WI2 [id number] [employer] [id number] Spo [id number] [facility] [id number] Spo [id number] [facility] [id number] xxxxxxxxx [id number] Medicare Medicare Primary [id number] Self [id number] MEDICARE [id number] xxxxxxxxxxx [id number] MEDICARE [id number] Annia [id number] [employer]OM[employer] [id number] [facility] [id number] [facility] [id number] [facility] Part B [id number] Family Dependent [id number] [facility] Medigap Part B [id number] [facility] Commercial [id number] [facility] [id number] WI2 [id number] [facility] Commercial [id number] [employer] [id number] [employer] [id number] [employer] -O/P [id number] [facility] (HMO) [id number] Fa ericka Dependent [employer] [id number] [facility] [id number] WI2 [id number] [facility] [id number] WI2 [id number] MEDICARE [id number] M10 [facility] [id number] AZ2 [id number] ANSI-Not a Secondary Insurance [id number] ANSI-Commercial [id number] ANSI-Medicare Part B [id number] ANSI-Commercial [id number] ANSI-Not a Secondary Insurance [id number] Problems, Conditions, and Diagnoses Code Display Name Description Problem Type Effective Dates Data Source(s) Z01.810 Encounter for preprocedural cardiovascul ar examination Encounter for preprocedural cardiovascul Diagnosis 07/27/2021 10:44:23 AM EDT [facility] E78.00 Pure hypercholesterolemia, unspecified P ure hypercholesterolemia, unspecified Diagnosis 01/02/2021 01:54:50 PM EDT [facility] I25.119 Atherosclerotic heart diseas e of [place] coronary artery with unspecified angina pectoris Atherosclerotic heart disease of [place] Diagnosis 01/02/2021 01:54:50 PM EDT [facility] R20.2 Paresthesia of skin Paresthesia of skin Diagnosis 0 12/29/2020 12:27:00 PM EDT [facility] R20.0 Anesthesia of skin Anesthesia of skin Diagnosis 12:27:00 PM EDT [facility] R53.83 Other fatigue Other fatigue Diagnosis 12/29/2020 12:27:00 PM EDT [facility] R06.02 Shortness of breath Shortness of breath Diagnosis 0 12/29/2020 12:27:00 PM EDT [facility] I20.9 Angina pectoris, unspecified Angina pectoris, unspecif ied Diagnosis 12/29/2020 12:27:00 PM EDT [facility] I20.0 Unstable angina Unstable angina Diagnosis 12/28/2020 10:1 3:47 AM EDT [facility] I25.10 Atherosclerotic heart diseas e of [place] coronary artery without angina pectoris Atherosclerotic heart disease of [place] Diagnosis 12/28/2020 10:13:47 AM EDT [facility] R20.0 Numbness and tingling Numbness and tingling [id number] 12/28/2020 12:00:00 AM EDT [facility] R53.83 Other fatigue Other fatigue [id number] 12/28/2020 12:00:00 AM EDT [facility] I25.119 Atherosclerosis of [place] co ronary artery of [place] heart with angina pectoris Atherosclerosis of [place] coronary arter y of [place] heart with angina pectoris [id number] 12/28/2020 12:00:00 AM EDT [facility] R06.02 Shortness of breath Shortness of breath [id number] 0 12/28/2020 12:00:00 AM EDT [facility] I20.9 Angina pectoris Angina pectoris [id number] 12/28/2020 12:0 0:00 AM EDT [facility] I20.0 Unstable angina Unstable angina [id number] 12/28/2020 12:0 0:00 AM EDT [facility] Surgeries/Procedures Procedure Description Date Indications Data Source(s) JASEN POST-VOIDING RESIDUAL URINE&/BLDR CAP 07/06/2021 12:00:00 AM EDT [facility] ([facility] OFFICE OUTPATIENT VISIT 15 MINUTES 07/06/2021 12:00:00 AM EDT MEDDAY[facility] ([facility]) OFFICE OUTPATIENT VISIT 15 MINUTES 06/20/2021 12:00:00 AM EDT [facility] ([facility]) Therapeutic, Prophylactic Or Diagnostic Injection Subq/Im 06/03/2021 12:00:00 AM EDT MEDENT ([facility]) Therapeutic, Prophylactic Or Diagnostic Injection Subq/Im 06/03/2021 12:00:00 AM EDT MEDENT ([facility]) OFFICE OUTPATIENT NEW 30 MINUTES 06/03/2021 12:00:00 A M EDT MEDENT ([facility]) OFFICE OUTPATIENT VISIT 25 MINUTES 05/29/2021 12:00:00 AM EDT MED[facility] ([facility]) Shave Biopsy Of Skin, Single Lesion 05/03/2021 12:00:0 0 AM EDT MEDENT ([facility]) OFFICE OUTPATIENT VISIT 25 MINUTES 05/03/2021 12:00:00 AM EDT MEDENT ([facility]) CARDIAC CATHETERIZATION <td>CARDIAC CATHETERIZATION</td><td>Routine</td><td>12/29/2020 2:57 PM EDT</td><td> Angina pectoris Shortness of breath Atherosclerosis of [place] coronary artery of [place] heart with angina pectoris Other fatigue Numbness and tingling</td><td> </td> 12/29/2020 06:57:56 PM EDT Numbness and tinglingOther fatigueAthero sclerosis of [place] coronary artery of [place] heart with angina pectorisShortness of breathAngina pectoris [facility] Numbness and tingling Other fatigue Atherosclerosis of [place] coronary arter y of [place] heart with angina pectoris Shortness of breath Angina pectoris COVID/FLU AB/RSV PCR <td>COVID/FLU AB/RSV PCR</td ><td>STAT</td><td>12/29/2020 1:03 PM EDT</td><td></td><td> </td> 12/29/2020 05:03:00 PM EDT [facility] ECG ROUTINE ECG W/LEAST 12 LDS TRCG ONLY W/O I&R <td>E CG 12- LEAD</td><td>Routine</td><td>12/29/2020 12:57 PM EDT</td><td></td><td></td> 12/29/2020 04:57:26 PM EDT [facility] ECG ROUTINE ECG W/LEAST 12 LDS W/I&R <td>POCT AMB EKG</td><td>Routine</td><td>12/28/2020 11:29 AM EDT</td><td> Coronary artery disease involving [place] coronary artery of [place] heart without angina pectoris SOB (shortness of breath)</td><td> </td> 12/28/2020 03:29:00 PM EDT SOB (shortness of breath)Coronary artery disease involving [place] coronary artery of [place] heart without angina pectoris [facility] SOB (shortness of breath) Coronary artery disease involving [place] coronary artery of [place] heart without angina pectoris Immunization: Flublok Quadrivalent (18 years & older) 0.5mL IM (Influenza) 07/19/2020 12:00:00 AM EDT eCW1 ([facility]) Results ID Date Data Source [id number] 07/29/2021 05:43:42 PM EDT [facility] NT INFORMATIONPatient MRN Name Date of Age Gend*PT [id number] Vika Monsivais 1955 66 years M ---PT Location Admission Date/Time Visit ID Attending Provider --- --- --- --- EPI ID CSN Admitting Provider [id number] ---Cardiology Office VisitSubjectiveChief Complaint: Here for follow-up visitHPI:This patient is a 66 years male With a past medical history as stated below1. Known coronary artery disease with previous anterior wall NC. Previouslyunderwent treatment of subtotally occluded LAD with 2 drug-eluting stents. EFwas 40 percent at that time. 2013.2. Ischemic cardiomyopathy EF 40%3. HyperlipidemiaPatient is here for follow-up examination preoperative stratification. He isgoing for foot surgery. He will be under general anesthesia release. He hasnot had any exertional symptoms since earlier this year. When he experiencednumbness in the left arm he would use nitro and symptoms of delay. However hedid have a stress echocardiogram at the time which was normal. Since then hehas had no symptoms. He is able to get up 2 flights of stairs without issues.He does report chronic prostatitis. Has been [id number] on antibiotics.Unfortunately had an episode with Bactrim where it was discovered that he asulfa allergy. Otherwise his medical history is uneventful. He does not havediabetes or CKD. [place] in [place] with his . He does have a history ofCAD however his disease is stable. Family history is insignificant. He walksevery dayReview of SystemsThis patient denies otherwise, weight loss or weight gain, fevers, chills,sweats, change in urine or change in bowel habits, breast, lung, liver or kidneydisease. She denies hematologic, neurologic, dermatologic, pulmonary,psychiatric, orthopedic, endocrine, hematologic, gastroenterologic, infectious,oncologic, gynecologic or gender specific diseases.Past HistoryPast Medical History:Diagnosis Date Coronary artery disease History of acute anterior wall NC 02/14/2014 Hyperlipidemia Prostatitis, chronic [address] Paris Surgical History:Procedure Laterality Date CARDIAC CATHETERIZATION 02/14/2014 MARKUS x 2 LAD CARDIAC CATHETERIZATION N/A 12/29/2020 Procedure: Left heart cath; Surgeon: Randall Galvez MD; Laterality: N/A; COLONOSCOPY FOOT SURGERY Left 2009 TRANSURETHRAL RESECTION OF PROSTATE 2010Family HistoryProblem Relation Age of Onset Cancer Mother Heart failure Mother Heart disease Father Thyroid disease Sister Cancer SisterSocial HistorySocioeconomic History Marital status: Spouse name: Not on file Number of children: Not on file Years of education: 16 Highest education level: Not on fileOccupational History 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 Smoking status: Never Smoker Smokeless tobacco: Never UsedSubstance and Sexual Activity Alcohol use: No Drug use: No Sexual activity: Yes Partners: FemaleOther Topics Concern Bike Helmet Not Asked History of Falls Not Asked Self-Exams Not Asked Caffeine Concern Not Asked Hobby Hazards Not Asked Sleep Concern Not Asked Daily Calcium Supplement Not Asked Lead Exposure Not Asked Special Diet Not Asked Daily Vitamin D Supplement Not Asked Service Not Asked Stress Concern Not Asked Domestic Violence in home Not Asked Radon exposure Not Asked Weight Concern Not Asked Exercise Not Asked Seat Belt Not Asked Well water Not Asked Firearms in home Not AskedSocial History Narrative Not on fileSocial Determinants of HealthFinancial Resource Strain: Difficulty of Paying Living Expenses:Food Insecurity: Worried About Running Out of Food in the Last Year: Ran Out of Food in the Last Year:Transportation Needs: Lack of Transportation (Medical): Lack of Transportation (Non-Medical):Physical Activity: Days of Exercise per Week: Minutes of Exercise per Session:Stress: Feeling of Stress :Social Connections: Frequency of Communication with Friends and Family: Frequency of Social Gatherings with Friends and Family: Attends [employer] Services: Active Member of Clubs or Organizations: Attends Club or Organization Meetings: Marital Status:Intimate Partner Violence: Fear of Current or Ex-Partner: Emotionally Abused: Physically Abused: Sexually Abused:Medications and AllergiesAllergiesAllergen Reactions Sulfa Antibiotics AnaphylaxisCurrent Outpatient MedicationsMedication Sig Dispense Refill amLODIPine (NORVASC) 2.5 MG tablet Take 1 tablet (2.5 mg total) by mouth santiago ly30 tablet 11 amoxicillin (AMOXIL) 875 MG tablet Take 875 mg by mouth 2 (two) times a day aspirin EC 81 MG EC tablet Take 81 mg by mouth daily atorvastatin (LIPITOR) 40 MG tablet TAKE 1 TABLET DAILY 90 tablet 3 benzonatate (TESSALON) 100 MG capsule Take 100 mg by mouth 3 (three) times aday DAILY LUIS (THERAGRAN) per tablet Take 1 tablet by mouth daily 30 tablet 0 Lactobacillus (PROBIOTIC ACIDOPHILUS PO) Take 1 tablet by mouth daily nitroglycerin (NITROSTAT) 0.[address] 1 tablet (0.4 mg total) underthe tongue every 5 (five) minutes as needed for chest pain 45 tablet 3 silodosin (RAPAFLO) 8 MG CAPS Take 8 mg by mouth daily oxyCODONE-acetaminophen (PERCOCET) 5-325 MG per tablet as neededNo current facility-administered medications for this visit.PhysicalBP 130/80 | Pulse 57 | Temp 98.2 F | Resp 18 | Wt 77.1 kg (170 lb) | HsM088% | BMI 29.18 kg/m Physical Exam:Neck: Trachea is midline, there is no JVD, there are no bruits.Cardiac: S1, S2, physiologically split. Rhythm is regular. There is no S3. Thereis no S4. PMI is in the fourth LICS AAL.There were no lifts, heaves, rubs orthrills.Lungs: Are clear to auscultation and percussion without rhonchi, rubs rales orwheezes. Diaphragmatic excursion is normal. Inspiratory and expiratory durationsare normal.Extremities: Are without erythema, cyanosis, clubbing or edemaNeurologic/psychiatric: Cranial nerves, strength, sensory, reflexes, cerebellum,orientation, mood and affect are unremarkable. A very cursory psychiatricexamination exhibits no obvious psychiatric issues.Skin: Is warm and dry. There are no definitive areas of cellulitis or unusualskin findings.DiagnosticsLab:No visits with results within 1 Month(s) from this visit.Latest known visit with results is:Ancillary Procedure on 1Component Date Value Ref Range Status BSA 01/02/2021 1.82 m2 Final Pt Height 01/02/2021 1.63 m Final Weight 01/02/2021 76.70 kg Final Systolic BP Echo 01/02/2021 110.00 mmHg Final Diastolic BP Echo 01/02/2021 62.00 mmHg Final LV Systolic Volume 01/02/2021 41.10 cm3 Final IVS 01/02/2021 1.00 0.6 - 1.1 cm Final LVIDD 01/02/2021 5.55 3.50 - 6.00 cm Final LVIDS 01/02/2021 3.45 2.10 - 4.00 cm Final LVOT diameter 01/02/2021 2.0 cm Final LVOT mn grad 01/02/2021 1.0 mmHg Final LVOT peak VTI 01/02/2021 16.60 cm Final LVOT Mean Sarkis 01/02/2021 0.51 m/s Final LVOT peak sarkis 01/02/2021 0.63 m/s Final AV LVOT peak gradient 01/02/2021 2.00 mmHg Final PW 01/02/2021 0.96 0.6 - 1.1 cm Final MV E' Lateral Tissue Sarkis 01/02/2021 0.07 m/s Final MV E' Tissue Velocity Lateral 01/02/2021 0.09 m/s Final E/E' Lateral Ratio 01/02/2021 7.40 no units Final LVOT area 01/02/2021 3.14 cm2 Final LVOT stroke volume 01/02/2021 52.12 cm3 Final Left atrial length superior-inferi* 01/02/2021 5.06 cm Final LA Area Sys (A4C) 01/02/2021 21.20 cm2 Final LA volume 01/02/2021 69.70 cm3 Final Left Atrium Major [place] 01/02/2021 4.30 cm Final LA/Ao Ratio 01/02/2021 1.30 no units Final Right Atrium Pressure 01/02/2021 10.00 mmHg Final Aortic valve mean velocity 01/02/2021 0.88 m/s Final AV mean gradient 01/02/2021 3.00 mmHg Final Aortic valve velocity time integral 01/02/2021 30.80 cm Final Ao peak sarkis 01/02/2021 1.29 m/s Final AV peak gradient 01/02/2021 7.00 mmHg Final Aortic arch 01/02/2021 3.10 cm Final Ao root annulus 01/02/2021 3.30 cm Final Ascending aorta 01/02/2021 3.50 cm Final Mitral valve mean inflow velocity 01/02/2021 3.09 m/s Final PISA MR Peak Velocity 01/02/2021 4.29 m/s Final E wave decelartion time 01/02/2021 239.00 ms Final MV Peak A Sarkis 01/02/2021 0.55 m/s Final MV Peak E Sarkis 01/02/2021 0.55 m/s Final E/A ratio 01/02/2021 1.00 Final PV PEAK VELOCITY 01/02/2021 0.74 m/s Final PV peak gradient 01/02/2021 2.00 mmHg Final RVDD 01/02/2021 3.89 cm Final Estimated r vent sys pressure by t* 01/02/2021 26.00 mmHg Final Tricuspid valve peak regurgitation* 01/02/2021 1.97 m/s Final Triscuspid Valve Regurgitation Pea* 01/02/2021 16.0 mmHg Final FS 01/02/2021 38 28 - 44 % Final EF 01/02/2021 64 % Final AV Velocity Ratio 01/02/2021 0.49 Final LV Systolic Volume Index 01/02/2021 22.6 mL/m2 Final LA Volume Index 01/02/2021 38.3 mL/m2 Final Target HR 01/02/2021 153 bpm Final Exercise Duration (min) 01/02/2021 9 min Final Estimated Workload (METS) 01/02/2021 10.3 METS Final Post Peak HR 01/02/2021 137 bpm Final Percent of predicted max HR 01/02/2021 85 % Final Baseline HR 01/02/2021 65 bpm Final Baseline BP 01/02/2021 110/62 mmHg Final Post peak BP 01/02/2021 148/74 mmHg Final Echo EF Estimated 01/02/2021 55 % FinalImaging/Testing:N/AEKG: Sinus bradycardia, otherwise normal EKGAssessment & PlanPatient Active Problem ListDiagnosis AMI anterior wall Hyperlipidemia History of acute anterior wall NC Coronary artery disease Unstable angina Angina pectoris Shortness of breath Atherosclerosis of [place] coronary artery of [place] heart with angina pecto ris Other fatigue Numbness and tinglingCardiovascular Lucrecia-Operative Risk StratificationBased upon evidence and ACC/ACH clinical guidelinesRCRI Risk Calculation: Per RCRI guidelines, the patient has a 2.4% chance ofperi-op cardiac complications including NC, VF, cardiac arrest, AV block, orheart failure.Patient is estimated to have functional class of 8-10METs.Further cardiac testing is NOT indicated as the patient has less than 3 RCRIclinical risk factors and demonstrates >4 METS baseline activity and is notundergoing vascular surgery. Evidence suggests further testing will not improveoutcomes. 1. Coronary artery disease;stent placement was in 2013.-He has stable disease, asymptomatic . Recent stress test in December without any ischemia. Continue goal-directed m edical therapy. He is only on aspirin amlodipine fornow. Has nitroglycerin has not had to use it in months. Continue statin2. Hyperlipidemia;Continue atorvastatinFollow-up in 6 monthsSignature: Hardy Nelson MDDate: July 27, 2021Time: 11:19 AM Name Value Range Interpretation Code Description Data Jerica rce(s) Supporting Document(s) ID Date Data Source [id number] 07/06/2021 01:49:00 PM EDT [facility] ([facility]) Name Value Range Interpretation Code Description Data Jerica rce(s) Supporting Document(s) Bacteria identified in Urine by Culture Laboratory test result [facility] ([facility] [place]) SPECIMEN DESCRIPTION URINE, COLLE CTION METHOD NOT SPECIFIED CULTURE RESULTS NO GROWTH REPORT STATUS FINAL 07/08/2021 ID Date Data Source [id number] 07/08/2021 07:13:07 AM EDT [facility] - CORE SPECIMEN DESCRIPTION URINE, COLLE CTION METHOD NOT SPECIFIEDCULTURE RESULTS NO GROWTHREPORT STATUS FINAL 07/08/2021 Name Value Range Interpretation Code Description Data Jerica rce(s) Supporting Document(s) ID Date Data Source [id number] 07/06/2021 01:20:00 PM EDT [facility] ([facility]) Name Value Range Interpretation Code Description Data Jerica rce(s) Supporting Document(s) Glucose [Presence] in Urine Laboratory test result [facility] ([facility] [place]) Protein [Presence] in Urine by Test strip Laboratory test result [facility] ([facility] [place]) Ua Leuko Laboratory test result [facility] ([facility]) Ua Nitrite Laboratory test result [facility] ([facility] [place] Color of Urine Laboratory test result [facility] ([facility] [place]) Blood [Presence] in Urine by Visual Laboratory test result [facility] ([facility]) Ketones [Presence] in Urine by Test strip Laboratory test result [facility] ([facility]) Clarity of Urine Laboratory test result [facility] ([facility]) Ua Specific [place] 1.025 1.003-1.030 [facility] ([facility]) pH of Urine by Test strip 7.0 5.0-7.5 [facility] ([facility]) Bilirubin.total [Presence] in Urine by Test strip Laboratory test res ult [facility] ([facility]) Urobilinogen [Mass/volume] in Urine by Test strip 0.2 E.U./dL 0.0-1.0 [facility] ([facility]) ID Date Data Source [id number] 06/20/2021 10:17:00 AM EDT [facility] ([facility]) Name Value Range Interpretation Code Description Data Jerica rce(s) Supporting Document(s) Glucose [Presence] in Urine Laboratory test result [facility] ([facility]) Protein [Presence] in Urine by Test strip Laboratory test result [facility] ([facility]) Ua Nitrite Laboratory test result [facility] ([facility]) Ua Leuko Laboratory test result [facility] ([facility]ated [facility]) Blood [Presence] in Urine by Visual Laboratory test result [facility] ([facility]) Ketones [Presence] in Urine by Test strip Laboratory test result [facility] ([facility]) Color of Urine Laboratory test result [facility] ([facility]ated [facility]) Clarity of Urine Laboratory test result [facility] ([facility]ated [facility]) Ua Specific [place] 1.020 1.003-1.030 [facility] ([facility]) pH of Urine by Test strip 6.0 5.0-7.5 [facility] ([facility]) Bilirubin.total [Presence] in Urine by Test strip Laboratory test res ult [facility] ([facility]) Urobilinogen [Mass/volume] in Urine by Test strip 0.2 E.U./dL 0.0-1.0 [facility] ([facility]) ID Date Data Source [id number] 06/14/2021 08:09:00 AM EDT [facility] ([facility]) Name Value Range Interpretation Code Description Data Jerica rce(s) Supporting Document(s) Prostate specific Ag [Mass/volume] in Serum or Plasma 3.31 ng/mL [facility] ([facility] [place]) The PSA assay is performed on the [employer] analyzer by [employer] sandwich chemiluminescent immunoassay and should not be compared interchangeably with other methods. It should not be used alone as a screening test or diagnosis for the presence or absence of malignant disease. Predictions of disease recurrence should not be based solely on values obtained from serial patient serum values. ID Date Data Source [id number] 05/29/2021 10:55:00 AM EDT [facility] ([facility] [place]) Name Value Range Interpretation Code Description Data Jerica rce(s) Supporting Document(s) Acinetobacter baumannii Laboratory test result [facility] ([facility] [place]) Laboratory test finding (navigational concept) Laboratory test result [facility] ([facility]) Laboratory test finding (navigational concept) Laboratory test result [facility] ([facility]) Shea glabrata Laboratory test result [facility] ([facility]) Shea albicans Laboratory test result [facility] ([facility]) Laboratory test finding (navigational concept) Laboratory test result [facility] ([facility]) Shea parapsilosis Laboratory test result [facility] ([facility]ated [facility]) Laboratory test finding (navigational concept) Laboratory test result [facility] ([facility] [place]) Laboratory test finding (navigational concept) Laboratory test result [facility] ([facility]) Laboratory test finding (navigational concept) Laboratory test result [facility] ([facility]) Laboratory test finding (navigational concept) Laboratory test result [facility] ([facility]) Laboratory test finding (navigational concept) Laboratory test result [facility] ([facility]) Laboratory test finding (navigational concept) Laboratory test result [facility] ([facility]) Laboratory test finding (navigational concept) Laboratory test result [facility] ([facility]) Laboratory test finding (navigational concept) Laboratory test result [facility] ([facility]) Laboratory test finding (navigational concept) Laboratory test result [facility] ([facility]) Escherichia coli Laboratory test result [facility] ([facility]) Klebsiella oxytoca Laboratory test result [facility] ([facility]) Klebsiella pneumoniae Laboratory test result [facility] ([facility]ated [facility]) Laboratory test finding (navigational concept) Laboratory test result [facility] ([facility]) Laboratory test finding (navigational concept) Laboratory test result [facility] ([facility] [place]) Laboratory test finding (navigational concept) Laboratory test result [facility] ([facility]) Mycoplasma hominis Laboratory test result [facility] ([facility] [place]) Laboratory test finding (navigational concept) Laboratory test result [facility] ([facility] [place]) Laboratory test finding (navigational concept) Laboratory test result [facility] ([facility] [place]) Laboratory test finding (navigational concept) Laboratory test result [facility] ([facility] [place]) Pseudomonas aeruginosa Laboratory test result [facility] ([facility] [place]) Serratia marcescens Laboratory test result [facility] ([facility] [place]) Staphylococcus aureus Laboratory test result [facility] ([facility] [place]) Laboratory test finding (navigational concept) Laboratory test result [facility] ([facility] [place]) Laboratory test finding (navigational concept) Laboratory test result [facility] ([facility] [place]) Laboratory test finding (navigational concept) Laboratory test result [facility] ([facility] [place]) Laboratory test finding (navigational concept) Laboratory test result [facility] ([facility] [place]) Laboratory test finding (navigational concept) Laboratory test result [facility] ([facility] [place]) Laboratory test finding (navigational concept) Laboratory test result [facility] ([facility] [place]) Laboratory test finding (navigational concept) Laboratory test result [facility] ([facility] [place]) Laboratory test finding (navigational concept) Laboratory test result [facility] ([facility] [place]) Ureaplasma urealyticum Laboratory test result [facility] ([facility] [place]) Laboratory test finding (navigational concept) Laboratory test result [facility] ([facility] [place]) Laboratory test finding (navigational concept) Laboratory test result [facility] ([facility] [place]) NOTDETECTED NOTDETECTED NOTDETECTED NOTDETECTED Laboratory test finding (navigational concept) Laboratory test result [facility] ([facility] [place]) Laboratory test finding (navigational concept) Laboratory test result [facility] ([facility] [place]) Laboratory test finding (navigational concept) Laboratory test result [facility] ([facility] [place]) NOTDETECTED NOTDETECTED NOTDETECTED Laboratory test finding (navigational concept) Laboratory test result [facility] ([facility] [place]) NOTDETECTED Laboratory test finding (navigational concept) Laboratory test result [facility] ([facility] [place]) NOTDETECTED Laboratory test finding (navigational concept) Laboratory test result [facility] ([facility] [place]) Laboratory test finding (navigational concept) Laboratory test result [facility] ([facility] [place]) Laboratory test finding (navigational concept) Laboratory test result [facility] ([facility]) Electronically signed by : Flo Chowdary on :05/30/2021 00:02:24 ID Date Data Source [id number] 05/29/2021 10:55:00 AM EDT [facility] ([facility]) Name Value Range Interpretation Code Description Data Jerica rce(s) Supporting Document(s) Bacteria identified in Urine by Culture Laboratory test result [facility] ([facility]) SPECIMEN DESCRIPTION MIDSTREAM UR INE,CLEAN CATCH CULTURE RESULTS NO GROWTH REPORT STATUS FINAL 05/30/2021 ID Date Data Source [id number] 05/30/2021 03:19:07 PM EDT [facility] - CORE SPECIMEN DESCRIPTION MIDSTREAM UR INE,CLEAN CATCHCULTURE RESULTS NO GROWTHREPORT STATUS FINAL 05/30/2021 Name Value Range Interpretation Code Description Data Jerica rce(s) Supporting Document(s) ID Date Data Source [id number] 05/29/2021 10:12:00 AM EDT [facility] ([facility]) Name Value Range Interpretation Code Description Data Jerica rce(s) Supporting Document(s) Protein [Presence] in Urine by Test strip Laboratory test result [facility] ([facility] [place]) Glucose [Presence] in Urine Laboratory test result [facility] ([facility] [place]) Ua Nitrite Laboratory test result [facility] ([facility]ated [facility]) Ua Leuko Laboratory test result [facility] ([facility]) Color of Urine Laboratory test result [facility] ([facility] [place]) Blood [Presence] in Urine by Visual Laboratory test result [facility] ([facility]) Ketones [Presence] in Urine by Test strip Laboratory test result [facility] ([facility] [place]) Ua Specific [place] 1.015 1.003-1.030 [facility] ([facility] [place]) Clarity of Urine Laboratory test result [facility] ([facility]ated [facility]) Urobilinogen [Mass/volume] in Urine by Test strip 0.2 E.U./dL 0.0-1.0 [facility] ([facility]) Bilirubin.total [Presence] in Urine by Test strip Laboratory test res ult [facility] ([facility]) pH of Urine by Test strip 7.0 5.0-7.5 [facility] (Associated Associate [facility]) ID Date Data Source [id number] 05/15/2021 08:08:00 AM EDT [facility] ([facility]) Name Value Range Interpretation Code Description Data Jerica rce(s) Supporting Document(s) Prostate specific Ag [Mass/volume] in Serum or Plasma 3.37 ng/mL [facility] ([facility]) The PSA assay is performed on the [employer] analyzer by [employer] sandwich chemiluminescent immunoassay and should not be compared interchangeably with other methods. It should not be used alone as a screening test or diagnosis for the presence or absence of malignant disease. Predictions of disease recurrence should not be based solely on values obtained from serial patient serum values. ID Date Data Source [id number] 05/03/2021 09:00:00 AM EDT [facility] ([facility]) Name Value Range Interpretation Code Description Data Jerica rce(s) Supporting Document(s) Laboratory test finding (navigational concept) Laboratory test result [facility] ([facility]) No further treatment necessary 7-30-21 L M on recorder Laboratory test finding (navigational concept) Laboratory test result [facility] ([facility]) No further treatment necessary 7-30-21 L M on recorder ID Date Data Source [id number] 12/30/2020 06:07:16 AM EDT [facility] Name Value Range Interpretation Code Description Data Jerica rce(s) Supporting Document(s) EKG [facility] GMMGWs2nPfUHKhVpu1ApDhLeBIYpAI2bkeu3O2L1sYKrX3DorUOde1zgP2MwD4WfXDDrEGLINA3TaDVf jb2 [file] f0387//zz3/73+2///Pv//joint machine operator//y36nL/KfR+63IH/R [file] a5CLNzEHxdHA4jtzEmKPMaLmumYd3swLH7HINzBwbYLm6Pg4EkqiO0mxXxYmKrZSUjYoRpWJ1K ID Date Data Source [id number] 12/29/2020 03:28:59 PM EDT [facility] Name Value Range Interpretation Code Description Data Jerica rce(s) Supporting Document(s) &PDF [facility] IMWWBa2kDzXDSwOy91/WQUbwLVPxr7VkCBguPAa8YXqoSIGgM4JdcTdsRJQIW0uDG75NBVPEG80FBcAX 0b3 [file] ICAgICAgICAgICAgICAgICAgICAgICAgICAgICAgIC AgICAgICAgICAgICAgICAgICAgICAgICAgICAgICAgICAgICAgICAgICAgICANCiAgICAgICAgICAgIC AgICAgICAgICAgICAgICAgICAgICAgICAgICAgICAgICAgICAgICAgICAgICAgICAgICAgICAgICAgIC AgICAgICAgICAgICAgICAgICAgICAgICAgICANCiAg ICAgICAgICAgICAgICAgICAgICAgICAgICAgICAgICAgICAgICAgICAgICAgICAgICAgICAgICAgICAg ICAgICAgICAgICAgICAgICAgICAgICAgICAgICAgICAgICAgICANCiAgICAgICAgICAgICAgICAgICAg ICAgICAgICAgICAgICAgICAgICAgICAgICAgICAgIC AgICAgICAgICAgICAgICAgICAgICAgICAgICAgICAgICAgICAgICAgICAgICAgICANCiAgICAgICAgIC AgICAgICAgICAgICAgICAgICAgICAgICAgICAgICAgICAgICAgICAgICAgICAgICAgICAgICAgICAgIC AgICAgICAgICAgICAgICAgICAgICAgICAgICAgICAN CiAgICAgICAgICAgICAgICAgICAgICAgICAgICAgICAgICAgICAgICAgICAgICAgICAgICAgICAgICAg ICAgICAgICAgICAgICAgICAgICAgICAgICAgICAgICAgICAgICAgICANCiAgICAgICAgICAgICAgICAg ICAgICAgICAgICAgICAgICAgICAgICAgICAgICAgIC AgICAgICAgICAgICAgICAgICAgICAgICAgICAgICAgICAgICAgICAgICAgICAgICAgICANCiAgICAgIC AgICAgICAgICAgICAgICAgICAgICAgICAgICAgICAgICAgICAgICAgICAgICAgICAgICAgICAgICAgIC AgICAgICAgICAgICAgICAgICAgICAgICAgICAgICAg ICANCiAgICAgICAgICAgICAgICAgICAgICAgICAgICAgICAgICAgICAgICAgICAgICAgICAgICAgICAg ICAgICAgICAgICAgICAgICAgICAgICAgICAgICAgICAgICAgICAgICAgICANCiAgICAgICAgICAgICAg ICAgICAgICAgICAgICAgICAgICAgICAgICAgICAgIC AgICAgICAgICAgICAgICAgICAgICAgICAgICAgICAgICAgICAgICAgICAgICAgICAgICAgICANCjw/eH SiP8fvuPAmbnS2M6thNh5ZBp0HTR5qk6IfOGVhWJbzbnOjOarSYcBwXEUdApvPDbt8MWodRS8PtJBoX4 SnB2HeYFusOW9WVOBwNMPfoEHwFBWoDGUlWiQ6YEOt FEvuQG6GuARiKKzpCXSyMBHtDcBbGQBhPHTcYDEoYF5YFXXlR363xjHmIy4JUw4WZoThAC5fth9XLpew DJXnYkqPVnb2YVedXT3PaVMoeIEdCFIvIQWJYtBbE6qcc5CsDmitQRBTULasAK6Cb5ZcsZErYMx+Pg0K QB6yj5WmZYnbOTXtXF0gsz6SWNwUEfDvQ9ZriTjiKG hzeNpndtPrLG3EKQNcLCZthPWuNWajOSJJCL0GDUidHMG3RHVfeoXlyVQuYZboAH7QTOYjbdBrTofuRG BSDQo+Tj3PES8im9YgBXmmAWKtGE3uiv8DMFrRXkFzM6E5bHBsB6A8QQwcYk3DUFCfEKCvAtPcWYVYFL whWS6GNK5nrwN0LQ3HgCDbWKEvHDUsdUGkFYd6K23s uARtEHtlTZ4ZJEF+Violette+Ds8SVXZlDOWcKBTzAkAnZPLKMjJtD3NrX5YAz6TbZ4PmGJ00yWpgitXqJLbu KJ3JOA3vFLVwOSTWVH5EiZMkiG7icsJbEmVvYXTPXgRgX34zrKZkWABtBKU4JDLoGi1FPNDrT9JotyFc iVvruaHfRUNdCTIRWZ1UWGmrxmJeeULsrBgdON11kW yhEO2IQa1ODaVnMT8jkv3TmMEqPm0WBGEkEB6JVRKoVXZmCKBmENL3XQOiRjMfHJapBCCmXIJxWGS2EY RnYNYjBR9PDiJzSYYoZSQ5QTSvTIYiJIIbea2VCDVvPXZ3FYUjBaPjXHKgSRAxLXgoEIXdYGZiEIq4NF VuGEJiER8EAvRaBXUgQXGrBtNuNCCcKLUgql0WMGEc RUQcNuWoRGOrOYUgURNhZWdfPDOeGTP5CqVbIEDyTNKxQZ6VMgOjNTPaCFO7NPJkJGIjBCHkum7WGUPx WMAwWzMyVUFgPJVrTOOhWOldLDBzAQX8NDL8TLImSMGcFV2RGyInTKVzGErkWOWgXJPxXFUeue7KQJQn QNRxTOI7UILsIYFzBCPsSOjhBUOwYKD1LwR3JTEfMU HaFJ4LIzCfLSHvXNo9CwBmISCeZNKqow8GLWBzMVUkVVdcFGTuGZAxJXRnBQoyERQbWDSmJTNmVGJxAJ MuIS1PAzXvNUPwFVF1XdiwZUXbIFMsaw0BWDPiWGFhEFH6ClZpEQKbKXTsABlgGCNwFPX2LRp8IGToCJ LlRD7AIbPyPUSkOAW2FbfxIRQwQFWmxr6UKXZsACDm TLr5UCIlUABeIMQvXRszTTHoFAY2AhyeBRWjYBAxMH5YHtOmQWTjMyC6TFzyTMHkHPXpse0EXBTmNTEx CWV9ZJLfHVQjRYOoGCxnOBJiTOA1OgBtNKQcTYEdTM4YSxWuZWOkCQvfYNdmUMQfOEPenf8AHJSiTSN5 XHMiHsOvLCZqEZLlLOybDTHeBXZ0SyO0VJEmQXLaHI 4DHbOiVPQhPGn5QNcuKVWtAQBdbp2DoZZjtMsrio0DXJpMIx3FxZjkDRYmZJnaCg6jfCFeNYMdCMGTUd 9AqiMtVYCwVOPDTZptEXWgVABlChQ6FKLrRfSqVqW8WXL7NBT7KCM0XZLpQhU1JChzClG7MMRcBGb1Es ChBZAwBBQmYqAuGXIpOLGiEhZqXVI4IUU+IF0gDQ o+Jk3Ql9AdecH8ujBhQNw7QTb0LY1DDVYDM9NZHy== ID Date Data Source [id number] 12/29/2020 01:19:44 PM EDT [facility] Name Value Range Interpretation Code Description Data Jerica rce(s) Supporting Document(s) EKG [facility] EANEQe8bQqBRHbPix3YjAiHgMBNbIW8bvle2S3L2rGZdP4OlqNDqh6fmQ0EwB7XgFVCzCLTSDJ4MxNUv jb2 [file] AenijmjzzoKETNkZxRFHZspNbgy3TXNfuDdfnUil/NxyhYTJKN76KkesLlrFdtmPjTaCVsZ4LfxO+Lucía [file] NSAwIFIKCj4+RmN8RDZ3oSShZoc1SlL8IYvgNZATFo== ID Date Data Source [id number] 12/29/2020 01:03:00 PM EDT [facility] Name Value Range Interpretation Code Description Data Jerica rce(s) Supporting Document(s) SARS coronavirus 2 RNA [Presence] in Res piratory specimen by ISIAH with probe detection NOT DETECTED [facility] This lab was reported by [facility]. ID Date Data Source [id number] 12/29/2020 02:04:07 PM EDT [facility] Name Value Range Interpretation Code Description Data Jerica rce(s) Supporting Document(s) SPECIMEN DESCRIPTION [facility] INFLUENZA A (NEG) [facility] INFLUENZA B (NEG) [facility] RSV (NEG) [facility] COMMENT [facility] THE [place] FDA HAS MADE THIS TEST AVAILABL EUNDER AN EMERGENCY USE AUTHORIZATION(EUA) FOR THE DETECTION AND/OR DIAGNOSISOF THE VIRUS THAT CAUSES COVID-19.PERFORMED AT [address] [place] [id number] COVID19 RESULT (NDET) [facility] THIS ASSAY AMPLIFIES AND DETECTSTHE TARG ET RNA USING REAL-TIME PCR.TESTING PERFORMED ON [employer] GENEXPERTNEGATIVE 2019_NCOV RT-PCR RESULTS DONOT PRECLUDE 2019_NCOV INFECTION ANDSHOULD NOT BE USED THE SOLE BASISFOR PATIENT MANAGEMENT DECISIONS. FIRST TEST [facility] Mandeep [place] of [facility] SY[facility]TOMATIC [facility] of [facility]SHON[facility]er DATE OF SYMPT ONSET Lab Gm ce of [facility] H[facility]ITALIZ[facility] [facility] [place] [facility] [facility] [place] [facility] ID Date Data Source [id number] 12/28/2020 11:35:15 AM EDT [facility] NT INFORMATIONPatient MRN Name Date of Age Gend*PT [id number] Vika Monsivais 1955 65 years M ---PT Location Admission Date/Time Visit ID Attending Provider --- --- --- --- EPI ID CSN Admitting Provider [id number] ---Cardiology Office NoteName: Vika Monsivais Gender: maleDate of : 1955 Age: 65 yearsPrimary Care Provider / Referring Physician: NEY CARABALLOurrent HistoryChief Complaint: Overdue follow-upHPI:This patient is a 65 years male presents today for follow-up. He has thefollowing medical problem list:1. Known coronary artery disease with previous anterior wall NC. Previouslyunderwent treatment of subtotally occluded LAD with 2 drug-eluting stents. EFwas 40 percent at that time. 2013.2. Stress echocardiogram 09/27/2019 was negative for ischemia. EF 55%, nosignificant valve disease3. HyperlipidemiaPatient presents today for follow-up. He has not been seen in the office [id number] and he did have stress echocardiogram 09/27/2019 which is negative forischemia. Patient states that he has been feeling well until approximately 2weeks ago. He does walk on a very regular basis and he claims about 2 weeks agohe began to have some shortness of breath, some numbness and tingling in hisleft arm, discomfort up his left neck as well. Last Friday he began to havechest discomfort with walking requiring sublingual nitroglycerin. Earlier thisweek he has required nitro for chest pain, shortness of breath, and left armdiscomfort. He did require nitro yesterday as well for same symptoms. Thesehave been noted to be exertional chest pain. He has not had any chest pain orangina at rest or nocturnal symptoms. He does also find himself to be morefatigued. These are very similar symptoms that he had prior to his NC in 2013.His EKG today is without changes however very concerned that this is unstableangina. I recommended that he proceed with cardiac catheterization urgently andwill be done tomorrow by Dr Galvez. I will send him today for stat labsincluding basic metabolic panel, CBC and a troponin. I have sent a prescriptionfor Plavix and instructed him to take 300 mg tonight for his catheterizationtomorrow. Today he was without symptoms of chest pain although he does stillhave some residual left neck discomfort. Amlodipine was added last week to hismedical regimen and he does feel that that helped initially but then hadrecurrent symptoms.Review of Systems General Denies dizziness or lightheadedness. Denies any recent, unexpectedweight changes. HEENT Denies any loss or change of vision. Denies tinnitus. Respiratory Denies PND, orthopnea, [place], hemoptysis, cough Cardiac Denies palpitations GI Denies melena, hematochezia, nausea, or vomiting. MS Denies any lower extremity edema. Neuro Denies speech, motor, or sensory impairment. Psych Denies depression or anxiety. Endo Denies polyuria or polydipsia, denies temperature intolerance. Derm Denies diaphoresis, non-healing skin woundsPast HistoryPast Medical History:Diagnosis Date Coronary artery disease History of acute anterior wall NC 02/14/2014 Hyperlipidemia Prostatitis, chronic [address] Paris Surgical History:Procedure Laterality Date CARDIAC CATHETERIZATION 02/14/2014 MARKUS x 2 LAD TRANSURETHRAL RESECTION OF PROSTATE 2010Family HistoryProblem Relation Age of Onset Cancer Mother Heart failure Mother Heart disease Father Thyroid disease Sister Cancer SisterSocial HistorySocioeconomic History Marital status: Spouse name: Not on file Number of children: Not on file Years of education: 16 Highest education level: Not on fileOccupational History 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 Financial resource strain: Not on file Food insecurity: Worry: Not on file Inability: Not on file Transportation needs: Medical: Not on file Non-medical: Not on fileTobacco Use Smoking status: Never Smoker Smokeless tobacco: Never UsedSubstance and Sexual Activity Alcohol use: No Drug use: No Sexual activity: Yes Partners: FemaleBrendastjayne Physical activity: Days per week: Not on file Minutes per session: Not on file Stress: Not on fileRelationships Social connections: Talks on phone: Not on file Gets together: Not on file Attends mandaen service: Not on file Active member of club or organization: Not on file Attends meetings of clubs or organizations: Not on file Relationship status: Not on file Intimate partner violence: Fear of current or ex partner: Not on file Emotionally abused: Not on file Physically abused: Not on file Forced sexual activity: Not on fileOther Topics Concern Bike Helmet Not Asked History of Falls Not Asked Self-Exams Not Asked Caffeine Concern Not Asked Hobby Hazards Not Asked Sleep Concern Not Asked Daily Calcium Supplement Not Asked Lead Exposure Not Asked Special Diet Not Asked Daily Vitamin D Supplement Not Asked Service Not Asked Stress Concern Not Asked Domestic Violence in home Not Asked Radon exposure Not Asked Weight Concern Not Asked Exercise Not Asked Seat Belt Not Asked Well water Not Asked Firearms in home Not AskedSocial History Narrative Not on fileMedications and AllergiesALLERGIES/SENSITIVITIES: Patient has no known drug allergies.Current Outpatient Medications: amLODIPine (NORVASC) 2.5 MG tablet, Take 1 tablet (2.5 mg total) by mouthdaily, Disp: 30 tablet, Rfl: 11 aspirin EC 81 MG EC tablet, Take 81 mg by mouth daily, Disp: , Rfl: atorvastatin (LIPITOR) 40 MG tablet, Take 1 tablet (40 mg total) by mouthdaily, Disp: 90 tablet, Rfl: 3 DAILY LUIS (THERAGRAN) per tablet, Take 1 tablet by mouth daily, Disp: 30tablet, Rfl: 0 Lactobacillus (PROBIOTIC ACIDOPHILUS PO), Take by mouth, Disp: , Rfl: nitroglycerin (NITROSTAT) 0.4 MG SL tablet, Place 1 tablet (0.4 mg total)under the tongue every 5 (five) minutes as needed for chest pain, Disp: 45tablet, Rfl: 3 silodosin (RAPAFLO) 8 MG CAPS, Take by mouth daily, Disp: , Rfl: clopidogrel (PLAVIX) 300 MG TABS, Take 1 tablet (300 mg total) by mouth oncefor 1 dose Take 1 tab tonight, Disp: 1 tablet, Rfl: 0PhysicalBMI: Body mass index is 29.01 kg/m .Blood Pressure: BP: 120/68 Pulse: Heart Rate: 60Temperature: Temp: 96.3 F Respirations: Weight: Weight: 76.7 kg (169 lb) O2 Saturation: SpO2: 98 %Physical Exam General Well developed, well nourished, no acute distress Neck Soft and supple without lymphadenopathy or thyromegaly. No JVD. Nobruits. Lungs Clear to auscultation, no crackles, rhonchi, or wheezes Heart Normal S1 S2, no murmurs, clicks, or gallops Musculoskeletal Appears to have normal range of motion x 4 extremities, nojoint swelling. No pedal edema Neuro Alert, orientedx3, no facial asymmetry Derm No rashes, or ulcers Vascular Pulses palpableDiagnosticsLabSending for blood work today as noted aboveBlood work from PCP from June 2020 reveals hemoglobin 13.5, [id number], sodium 143, potassium 4.8, glucose 84, BUN 20, creatinine 0.99, normalliver functions, total cholesterol 136, triglyceride 43, HDL 61, LDL 66, normalTSHEKG:EKG Results (Last 72 hours) 12/28/20 1129 POCT AMB EKG Final result Impression: Sinus bradycardia with no acute changesAssessment & Plan1. Known CAD; patient had previous anterior wall NC in 2013 treated with 2drug- eluting stents to the LAD at that time. He has had progressive unstableangina over the past week requiring sublingual nitroglycerin for relief.Because of this, we will set up for urgent cardiac catheterization to be donetomorrow by Dr Galvez. I have sent in for stat labs today as noted above andinstructed him to take Plavix 300 mg tonight.2. Hyperlipidemia he does remain on atorvastatin and his LDL has been less [id number]. Neck pain that seems to be noted on the left side. He does seem concernedabout this. I have reviewed with him that we will make sure that this is not ananginal equivalent and if it is not, we will proceed with carotid ultrasoundPatient will be set up for urgent cardiac catheterization to be done tomorrow byDr Galvez. I did review with the patient if he has any unstable symptoms thenhe should present to the emergency room. He is aware of that.We appreciate the opportunity to care for this patient.Signature: Caridad Young NPDate: December 28, 2020Time: 11:29 AMThis document or parts of this document, were dictated using [employer]. A reasonable attempt at proofreading has been made to minimize errors.Please call with any questions or corrections. Name Value Range Interpretation Code Description Data Jerica rce(s) Supporting Document(s) ID Date Data Source [id number] 12/28/2020 01:34:14 PM EDT [facility] [place] [facility] Name Value Range Interpretation Code Description Data Jerica rce(s) Supporting Document(s) SODIUM 143 mmol/L (136-145) [facility] [place] [facility] POTASSIUM 4.2 mmol/L (3.6-5.2) [facility] [place] [facility] CHLORIDE 108 mmol/L (100-108) [facility] [place] [facility] CO2 31 mmol/L (22-31) [facility] [place] [facility] ANION GAP 4 mmol/L (7-16) L [facility] [place] [facility] UREA NITROGEN 18 mg/dL (7-24) [facility] [place] [facility] CREATININE 0.88 mg/dL (0.80-1.30) [facility] [place] [facility] BUN/CREAT RATIO 20.5 RATIO (10.0-20.0) H [facility] GLUCOSE 80 mg/dL (70-99) [facility] [place] [facility] CALCIUM 9.5 mg/dL (8.4-10.2) [facility] [place] [facility] GFR >60 ml/min/1.73m2 (>59) [facility] [place] [facility] GFR ( AMER) >60 ml/min/1.73m2 (>59) [facility] [place] [facility] GFR INTERPRETATION [facility] --NORMAL KIDNEY FUNCTION OR MILD DISEASE - GFR >OR= 60CHRONIC KIDNEY DISEASE - GFR 15 - 59RENAL FAILURE - GFR <15 Est. GFR calculation based on the MDRDstudy equation, which assumes a steadystate for creatinine. Est. GFR should notbe used for medication dosing. ID Date Data Source [id number] 12/28/2020 01:34:14 PM EDT [facility] [place] [facility] Name Value Range Interpretation Code Description Data Jerica rce(s) Supporting Document(s) TROPONIN I <0.05 ng/mL (<0.05) [facility] [place] [facility] [place] Less than 0.05: Myocardial injury unlike lyGreater than or equal to 0.05: Highly suggestive of myocardial injuryCorrelation with rise and/or fall ofserial troponins, clinical symptomsand ECG changes is necessary. ID Date Data Source [id number] 12/28/2020 01:15:00 PM EDT [facility] [place] [facility] Name Value Range Interpretation Code Description Data Jerica rce(s) Supporting Document(s) WBC 4.5 10*3/uL (4.1-11.0) [facility] [place] [facility] [place] RBC 4.41 10*6/uL (4.60-6.10) L [facility] [place] [facility] HGB 13.8 g/dL (13.5-18.0) [facility] [place] [facility] HCT 40.8 % (41.0-53.0) L [facility] [place] [facility] MCV 92.6 fL (80.0-95.0) [facility] [place] [facility] MCH 31.3 pg (27.0-32.0) [facility] [place] [facility] MCHC 33.8 g/dL (32.0-36.0) [facility] [place] [facility] RDW 13.8 % (10.5-14.5) [facility] [place] [facility] PLT 235 10*3/uL (150-450) [facility] [place] [facility] MPV 8.8 fL (7.1-10.7) [facility] [place] [facility] NEUT % 64.9 % (35.0-75.0) [facility] [place] [facility] LYMPH % 25.5 % (16.0-52.0) [facility] [place] [facility] MONO % 8.7 % (0.0-8.0) H [facility] [place] [facility] EOS % 0.7 % (0.0-5.0) [facility] [place] [facility] BASO % 0.2 % (0.0-4.0) [facility] [place] [facility] NEUT # 2.9 10*3/uL (1.8-7.7) [facility] [place] [facility] LYMPH # 1.2 10*3/uL (1.2-4.8) [facility] [place] [facility] MONO # 0.4 10*3/uL (0.0-0.8) [facility] [place] [facility] Eosinophils [#/volume] in Blood by Automated count 0.0 10*3/uL (0.0-0 .5) [facility] [place] [facility] BASO # 0.0 10*3/uL (0.0-0.2) [facility] [place] [facility] ID Date Data Source URINE CULTURE 12/05/2020 12:00:00 AM EST eCW1 ([facility]) Name Value Range Interpretation Code Description Data Jerica rce(s) Supporting Document(s) URINE CULTURE eCW1 ([facility]) ID Date Data Source UA URINALYSIS 12/05/2020 12:00:00 AM EST eCW1 ([facility]) Name Value Range Interpretation Code Description Data Jerica rce(s) Supporting Document(s) UA URINALYSIS eCW1 ([facility]) Procedure Social History Code Duration Value Status Description Data Source(s ) Smoking 07/20/2021 12:00:00 AM EDT Never Smoker completed Never S moker eCW1 ([facility]) Smoking 07/06/2021 12:00:00 AM EDT Never Smoked Cigarettes com pleted Never Smoked Cigarettes [facility] ([facility]) Smoking 05/22/2021 12:00:00 AM EDT Never Smoker completed Never S moker eCW1 ([facility]) Smoking 05/22/2021 12:00:00 AM EDT Never Smoker completed Never S moker eCW1 ([facility]) Alcohol intake 12/29/2020 12:00:00 AM EDT No completed [facility] Smoking 12/29/2020 12:00:00 AM EDT Never smoker completed Never s moker [facility] Alcohol intake 12/28/2020 12:00:00 AM EDT No completed [facility] Smoking 12/28/2020 12:00:00 AM EDT Never smoker completed Never s moker [facility] Vital Signs ID Date Data Source UNK Name Value Range Interpretation Code Description Data Source(s) Respiratory rate 16 /min 16 /min eCW1 ([facility]) Body weight 169.8 [lb_av] 169.8 [lb_av] eCW1 ([facility]) Systolic blood pressure 128 mm[Hg] 128 mm[Hg] e CW1 ([facility]) Diastolic blood pressure 68 mm[Hg] 68 mm[Hg] eCW1 ([facility]) Body temperature 98.3 [degF] 98.3 [degF] eCW1 ( [facility]) Body weight 77.02 kg 77.02 kg eCW1 ([facility]) Body height 64.5 [in_i] 64.5 [in_i] eCW1 ([facility]) Body mass index (BMI) [Ratio] 28.69 kg/m2 28.69 kg/m2 eCW1 ([facility]) Heart rate 54 /min 54 /min eCW1 ([facility]) Body weight 72.576 kg 72.576 kg [facility] ([facility] Body weight 160.00 [lb_av] 160.00 [lb_av] MEDEN T ([facility]) Body height 64 [in_i] 64 [in_i] [facility] ([facility]) 5'4" Body mass index (BMI) [Ratio] 27.5 kg/m2 27.5 k g/m2 [facility] ([facility]) Systolic blood pressure 137 mm[Hg] 137 mm[Hg] M EDENT ([facility]) Diastolic blood pressure 68 mm[Hg] 68 mm[Hg] [facility] ([facility]) Heart rate 58 /min 58 /min [facility] ([facility] Body weight 72.576 kg 72.576 kg [facility] ([facility] Body mass index (BMI) [Ratio] 27.5 kg/m2 27.5 k g/m2 [facility] ([facility]) Heart rate 58 /min 58 /min [facility] ([facility]) Systolic blood pressure 137 mm[Hg] 137 mm[Hg] M EDENT ([facility]) Diastolic blood pressure 81 mm[Hg] 81 mm[Hg] [facility] ([facility]) Body height 64 [in_i] 64 [in_i] [facility] ([facility] 5'4" Body weight 160.00 [lb_av] 160.00 [lb_av] MEDEN T ([facility]) Body height 64 [in_i] 64 [in_i] MEDENT ([facility]) 5'4" Systolic blood pressure 124 mm[Hg] 124 mm[Hg] M EDENT ([facility], [facility]) Diastolic blood pressure 75 mm[Hg] 75 mm[Hg] MEDENT ([facility], [facility]) Heart rate 67 /min 67 /min MEDENT ([facility], [facility]) Respiratory rate 15 /min 15 /min MEDENT ( [facility], [facility]) Oxygen saturation in Arterial blood by Pulse oximetry 99 % 99 % MEDENT ([facility], [facility]) Body temperature 98.0 [degF] 98.0 [degF] MEDENT ([facility], [facility]) Body weight 160.00 [lb_av] 160.00 [lb_av] MEDEN T ([facility], [facility]) Body mass index (BMI) [Ratio] 27.5 kg/m2 27.5 k g/m2 MEDENT ([facility], [facility]) Body height 64 [in_i] 64 [in_i] [facility] ([facility] 5'4" Systolic blood pressure 125 mm[Hg] 125 mm[Hg] M EDENT ([facility]) Diastolic blood pressure 69 mm[Hg] 69 mm[Hg] [facility] ([facility]) Heart rate 53 /min 53 /min [facility] ([facility]) Body weight 160.00 [lb_av] 160.00 [lb_av] MEDEN T ([facility]) Body weight 72.576 kg 72.576 kg [facility] ([facility]) Body mass index (BMI) [Ratio] 27.5 kg/m2 27.5 k g/m2 [facility] ([facility]) Body weight 166.2 [lb_av] 166.2 [lb_av] eCW1 ([facility]) Body height 64.5 [in_i] 64.5 [in_i] eCW1 ([facility]) Body mass index (BMI) [Ratio] 28.08 kg/m2 28.08 kg/m2 eCW1 ([facility]) Heart rate 68 /min 68 /min eCW1 ([facility]) Respiratory rate 18 /min 18 /min eCW1 ([facility]) Body temperature 97.8 [degF] 97.8 [degF] eCW1 ( [facility]) Systolic blood pressure 132 mm[Hg] 132 mm[Hg] e CW1 ([facility]) Diastolic blood pressure 82 mm[Hg] 82 mm[Hg] eCW1 ([facility]) Systolic blood pressure 114 mm[Hg] 114 mm[Hg] M EDENT ([facility]) Diastolic blood pressure 72 mm[Hg] 72 mm[Hg] MEDENT ([facility]) Body weight 157.00 [lb_av] 157.00 [lb_av] MEDEN T ([facility]) Respiratory rate 18 /min 18 /min MEDENT ( [facility]) Oxygen saturation in Arterial blood by Pulse oximetry 98 % 98 % [facility] Systolic blood pressure 100 mm[Hg] 100 mm[Hg] [facility] Diastolic blood pressure 66 mm[Hg] 66 mm[Hg] [facility] Heart rate 56 /min 56 /min [facility] Body temperature 36.5 Codi 36.5 Codi [facility] Respiratory rate 16 /min 16 /min [facility] Body weight 76.7 kg 76.7 kg [facility] Body mass index (BMI) [Ratio] 29.02 kg/m2 29.02 kg/m2 [facility] Body height 162.6 cm 162.6 cm [facility] Systolic blood pressure 120 mm[Hg] 120 mm[Hg] [facility] Diastolic blood pressure 68 mm[Hg] 68 mm[Hg] [facility] Heart rate 60 /min 60 /min [facility] Body temperature 35.72 Codi 35.72 Codi [facility] Body height 162.6 cm 162.6 cm [facility] Body weight 76.658 kg 76.658 kg [facility] Body mass index (BMI) [Ratio] 29.01 kg/m2 29.01 kg/m2 [facility] Oxygen saturation in Arterial blood by Pulse oximetry 98 % 98 % [facility] Systolic blood pressure 127 mm[Hg] 127 mm[Hg] M EDENT ([facility]) Diastolic blood pressure 68 mm[Hg] 68 mm[Hg] MED[facility] ([facility]) Body weight 160.00 [lb_av] 160.00 [lb_av] MEDEN T ([facility]) Body temperature 96.2 [degF] 96.2 [degF] MED[facility] ([facility]) Patient Treatment Plan of Care Planned Activity Planned Date Details Description Data Source (s) benzonatate 100 MG Oral Capsule 07/20/2021 12:00:00 AM EDT eCW1 ([facility]) Amoxicillin 875 MG Oral Tablet 07/20/2021 12:00:00 AM EDT eCW1 ([facility]) clopidogrel 300 MG Oral Tablet 12/28/2020 12:00:00 AM EDT [facility] Amlodipine 2.5 MG Oral Tablet 12/22/2020 12:00:00 AM EST [facility] Sulfamethoxazole 800 MG / Trimethoprim 160 MG Oral Tab let 12/05/2020 12:00:00 AM EST eCW1 ([facility]) Sulfamethoxazole 800 MG / Trimethoprim 160 MG Oral Tab let 12/05/2020 12:00:00 AM EST eCW1 ([facility])
--- OUTSIDE RECORDS SUMMARY | 2021-08-03 08:38 | CCD ---
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 Had an Enterococcus faecalis UTI in 06/2012. He had a cystoscopy in 02/2017. He is on Rapaflo now. He has an upcoming urology visit in May 2021. His PSA is intermittently elevated likely because of his episodic prostatitis, most recently over 3 in May 2021. Problem Mixed hyperlipidemia E78.2 Active confirmed [id number] He has been on a statin since his [facility] in 02/2014. Lipids were optimal in May 2021. He is on a moderately high intensity statin. Problem History of adenomatous polyp of colon Z86.010 Ac tive confirmed [id number] He had a colonoscopy in June 2013 and in 10/2016. Had an adenomatous polyp each time. Problem CAD (coronary artery disease) I25.10 Active confirm ed [id number] Patient had an anterior wall myocardial infarction [...] No Known Allergies ENCOUNTERS from 1955 to 2021-05-29 Encounter Location Date Provider Diagnosis [facility] [address] [facility] [phone] [place] [address] May, Frank Rhode Medicare annual wellness vis it, subsequent Z00.00 ; CAD (coronary artery disease) I25.10 ; Chronic prostatitis N41.1 ; History of adenomatous polyp of colon Z86.010 and Mixed hyperlipidemia E78.2 IMMUNIZATIONS Vaccine Route Administration Date Status Influenza [...] FOR REFERRAL No Information VITAL SIGNS Weight 166.2 lbs May, Height 64.5 in May, BMI 28.08 kg/m2 May, Heart Rate 68 /min May, Respiratory Rate 18 /min May, Temperature 97.8 degrees Fahrenheit May, Oximetry 99 May, Blood pressure systolic 132 mm Hg May, Blood pressure diastolic 82 mm Hg May, MEDICATIONS Medication SIG (Take, Route, Frequency, Duration) [...] Information RESULTS No Results REASON FOR VISIT Annual wellness exam with labs to review MEDICAL (GENERAL) HISTORY Type Description Date Medical History CAD (coronary artery disease) Medical History Chronic prostatitis Medical History History of adenomatous polyp of colon Medical History Mixed hyperlipidemia Surgical History TURP 03/2008 Surgical History Left foot surgery, 1st MTP joint 12/2009 Surgical History Colonoscopy 06/2013 Surgical History Coronary artery stent placem ent x2, after reperfusion therapy following [facility] 02/2014 Surgical History Colonoscopy with polypectomy 10/2016 Surgical History Cystoscopy-AMP Urology 02/2017 Surgical History Cardiac catheterization with no interven tion 12/2020 Goals Section No Information Health Concerns No Information MEDICAL EQUIPMENT No Information MENTAL STATUS No Information FUNCTIONAL STATUS No Information ASSESSMENTS Encounter Date Diagnosis Assessment Notes Treatment Notes Treatm ent Clinical Notes May, Medicare annual wellness visit, subsequent (ICD- 10 - Z00.00) May, CAD (coronary artery disease) (ICD-10 - I25.10) Patient had an anterior wall myocardial infarction [...] and Plavix was stopped in Spring 2016. May, Chronic prostatitis (ICD-10 - N41.1) Blanca pang is followed by a urologist. Had an Enterococcus faecalis UTI in 06/2012. He had a cystoscopy in 02/2017. He is on Rapaflo now. He has an upcoming urology visit in May 2021. His PSA is intermittently elevated likely because of his episodic prostatitis, most recently over 3 in May 2021. May, History of adenomatous polyp of colon (I CD-10 - Z86.010) He had a colonoscopy in June 2013 and in 10/2016. Had an adenomatous polyp each time. May, Mixed hyperlipidemia (ICD-10 - E78.2) He has been on a statin since his [facility] in 02/2014. Lipids were optimal in May 2021. He is on a moderately high intensity statin. PLAN OF TREATMENT Future Test Test Name Order Date Comprehensive Metabolic Profile (CMP) 20220522 MAGNESIUM LEVEL [id number] CBC with Differential 20220522 LIPID PANEL (CARDIAC RISK) 20220522 Next Appt Details 1 Year Reason: Insurance Providers Payer Name Payer Address Payer Phone Insured Name Patient Relati onship to Insured Coverage Start Date Coverage End Date [facility]LY [facility] SEC [address] [address] [facility] [address] VIKA MONSIVAIS [id number] MEDICARE Part A and B [address] [facility] [address] VIKA MONSIVAIS self
--- OUTSIDE RECORDS SUMMARY | 2021-08-03 08:38 | CCD | Continuity of Care Document ---
Author Author Vasiliy HENDRICKS Organization Unknown Address [address] [place] [address] [place] [address] Phone [phone] Problems Description No Information Available Social History [...] Available Procedures Date Code Description Status 06/03/2021 27381 Office/Outpatient New Low MDM 30 -44 Minutes Completed Medical Devices Description No Information Available Encounters Type Date Location Provider Dx Diagnosis Office Visit 06/03/2021 8:25a Main Office SRAVANTHI Gentile L03 .211 Cellulitis of face Z88.2 Allergy status to sulfonamid es Assessments Date Code Description Provider 06/03/2021 L03.211 Cellulitis of face SRAVANTHI Buenrostro 06/03/2021 Z88.2 Allergy status to sulfonamides M SRAVANTHI Swain Plan of Treatment No Information Available Functional Status Description No Information Available Mental Status Description No Information Available Referrals Description No Information Available
[2021-08-03] MEDS ORDERED: SCOPOLAMINE 1MG TRANSDERMAL PATCH TOP ONE (09:25)
[2021-08-03] MEDS ORDERED: dexameTHASONE 4 MG/ML 1ML VIAL (J1100 PER 1MG) As Ordered ONE (10:22)
[2021-08-03] MEDS ORDERED: LIDOCAINE 2% MDV 20ML VIAL As Ordered ONE (10:22)
[2021-08-03] MEDS ORDERED: GENTAMICIN SULF 80MG/2ML VIAL As Ordered ONE (10:22)
[2021-08-03] MEDS ORDERED: BUPIVACAINE HCL 0.5% 30 ML VIAL As Ordered ONE (10:22)
[2021-08-03] MEDS ORDERED: ACETAMINOPHEN 1000MG 100ML IV BTL (OFIRMEV) (J0131 PER 10MG) As Ordered ONE (11:16)
[2021-08-03] MEDS ORDERED: PHENYLephrine 500MCG 5ML (100MCG/ML) SYRINGE As Ordered ONE (11:21)
[2021-08-03] MEDS ORDERED: SEVOFLURANE INHAL SOLN 250 ML BTL As Ordered ONE (11:37)
[2021-08-03] MEDS ORDERED: propofoL 200 MG/20 ML VIAL As Ordered ONE (11:42)
[2021-08-03 13:00] VITALS: BP 115/58
[2021-08-03] MEDS ORDERED: fentaNYL 100 MCG/2 ML INJECTION (J3010) IV PRN (13:00)
[2021-08-03] MEDS ORDERED: LR 1,000 ML IV SCH (13:00)
[2021-08-03] MEDS ORDERED: ONDANSETRON 4MG/2ML VIAL IV PRN (13:00)
[2021-08-03] MEDS ORDERED: PERCOCET 5MG/325MG TAB PO PRN (13:00)
--- NOTE | 2021-08-03 13:37 | REP ---
INDICATION: FUSION 1ST METATARSOPHALANGEAL JOINT RIGHT FOOT COMPARISON: None. TECHNIQUE: Three portable views right foot. FINDINGS: A plate and screws fuse the 1st metatarsophalangeal joint. The osseous structures are intact and well aligned. There is an overlying cast obscuring underlying osseous detail. IMPRESSION: Surgical fusion of 1st metatarsophalangeal joint. <Electronically signed by Raza Lanza > 08/03/21 [id number]
--- NOTE | 2021-08-03 14:36 | RO ---
OPERATIVE NOTE DATE OF OPERATION: 08/03/2021 PREOPERATIVE DIAGNOSIS: Hallux limitus deformity right foot. POSTOPERATIVE DIAGNOSIS: Hallux limitus deformity right foot. PROCEDURE: Fusion 1st metatarsophalangeal joint right foot. SURGEON: Yury Correa DPM DENITRATOR OPERATOR: None. ANESTHESIA: Local, MAC. IRRIGATION: Dilute Gentamicin solution. HEMOSTASIS: Ankle pneumatic tourniquet at 200 mmHg for 71 minutes. HARDWARE UTILIZED: Arthrex MTP fusion set. DESCRIPTION OF PROCEDURE: On 08/03/2021 this 66-year-old male was taken from his hospital room to the operating room and placed on the operating table in supine position. Following induction of IV sedation and local regional anesthesia the right lower extremity was prepped and draped in usual aseptic manner. Pneumatic tourniquet was rapidly inflated. Attention was directed to the patient's right foot and the following procedure was performed. Fusion 1st metatarsophalangeal joint with plate and screw fixation right foot. Attention was directed to the patient's right foot. There was noted to be a hallux limitus deformity. At this time a 7 cm incision was placed over the 1st metatarsophalangeal joint. The incision was deepened through subcutaneous tissues and all crossing venous tributaries were identified, underscored, clamped, cut, ligated or electrocoagulated as necessary. Linear capsulotomy was performed over the 1st metatarsophalangeal joint. Capsular periosteal incision was placed and the joint was inspected. There was noted to be considerable erosion of cartilage over the 1st metatarsal head encompassing approximately 90% of the cartilage. Approximately 30-40% of cartilage was missing from the proximal phalanx. Spurring was noted dorsally and there was a loose body noticed in the dorsal aspect of the 1st metatarsophalangeal joint. Therefore, fusion was elected to be performed. Utilizing metatarsal elevator the joint surfaces were exposed. Utilizing sagittal saw an osteotomy was performed through the medial eminence and the dorsal spurring on the 1st metatarsal. Utilizing a rongeur the proximal phalanx was debrided of spurring. The wound was flushed with copious amounts of dilute Bacitracin, Neomycin and Polymyxin B solution. Utilizing a cup and cone reamer 1st metatarsal and proximal phalanx were reamed. Utilizing a curet any remaining cartilage was removed. Joint was fenestrated with 1.7 mm drill bit. The wound was irrigated prior to fenestration but was not irrigated after fenestration and a 3.0 screw was placed across the proximal phalanx into the metatarsal. However, the screw had penetrated through the head therefore that screw was removed and a 38 mm 3.5 headless screw was placed across the fusion site and this provided good fixation. 1st MTP short plate was then placed over the dorsal aspect and contoured and appropriate screws were placed across the fusion site of the proximal phalanx and 1st metatarsal. The fusion site was noted to be stable in all three cardinal planes. The wound was flushed with copious amounts of dilute Bacitracin, Neomycin and Polymyxin B solution and the capsule was coapted and maintained utilizing 2-0 Monocryl in simple interrupted type fashion. Subcutaneous tissue coapted and maintained using 4-0 Monocryl in simple interrupted type fashion. Skin incision coapted and maintained utilizing 3-0 nylon in simple interrupted and horizontal mattress type fashion. A well molded boot cast was applied to the patient's right foot. When the ankle tourniquet was deflated instantaneous capillary filling time was noted digits one through five of patient's right foot. The patient having apparently tolerated the procedure was taken from OR to the recovery room for further monitoring by the anesthesia department. Postoperative instructions were given upon discharge.
== END 2021-08-03 13:20 | disposition home or self-care (01) ==
LOC: M SDC 08:32
PROVIDERS: ATTEND Podiatrist
DX: M20.5X1 Other deformities of toe(s) (acquired), right foot (principal); M79.674 Pain in right toe(s); R00.1 Bradycardia, unspecified; I25.10 Atherosclerotic heart disease of native coronary artery without angina pectoris; I25.2 Old myocardial infarction; E78.5 Hyperlipidemia, unspecified; Z95.5 Presence of coronary angioplasty implant and graft; N40.0 Benign prostatic hyperplasia without lower urinary tract symptoms; Z79.899 Other long term (current) drug therapy; Z79.02 Long term (current) use of antithrombotics/antiplatelets; Z79.82 Long term (current) use of aspirin
CPT/HCPCS: 28750; 73630; 76000; 88300; C1713; J0131; J0690; J1100; J1580; J1885; J2250; J2370; J2405; J3010

== ENCOUNTER → 2022-01-09 | Outpatient (CLI) | payer MEDICARE, OTHER ==
[~2022-01-09] MED LIST changes: -KETOROLAC 60MG 2ML VIAL As Ordered ONE; -LIDOCAINE 1% MDV 20ML VIAL SQ PRN; -LIDOCAINE 2% 100MG/5ML SDV (FOR ANES.) As Ordered ONE; -LR 1,000 ML IV ONE; -MIDAZOLAM INJ 2MG/2ML VIAL (J2250 PER 1MG) As Ordered ONE; -ONDANSETRON 4MG/2ML VIAL As Ordered ONE; -ceFAZolin SOD 2 GM in IV 1 EA IV ONE; -fentaNYL 100 MCG/2 ML INJECTION (J3010) As Ordered ONE; -propofoL 200 MG/20 ML VIAL As Ordered ONE
== END ==
LOC: M LABSMTC 09:20
PROVIDERS: ATTEND Anesthesiology
DX: Z01.818 Encounter for other preprocedural examination (principal); Z11.52 Encounter for screening for COVID-19

== ENCOUNTER 2022-01-14 09:38 | Day surgery (SDC) | payer MEDICARE, OTHER ==
[~2022-01-14] VITALS: Ht 162.6 cm; Wt 78.5 kg
[~2022-01-14 09:38] MED LIST changes: +NS 1,000 ML IV ONE; +RAPA8CAP4 PO; +VITMTA PO
[2022-01-14] MEDS ORDERED: LIDOCAINE 2% 100MG/5ML SDV (FOR ANES.) As Ordered ONE (10:38)
[2022-01-14] MEDS ORDERED: propofoL 200 MG/20 ML VIAL As Ordered ONE (10:38)
[2022-01-14 11:33] VITALS: BP 128/73
== END 2022-01-14 11:38 | disposition home or self-care (01) ==
LOC: M OPP 09:38
PROVIDERS: ATTEND Internal Medicine Gastroenterology
DX: Z12.11 Encounter for screening for malignant neoplasm of colon (principal); Z86.010 Personal history of colon polyps; K63.5 Polyp of colon; K64.4 Residual hemorrhoidal skin tags; K57.30 Diverticulosis of large intestine without perforation or abscess without bleeding; K64.8 Other hemorrhoids; Z79.82 Long term (current) use of aspirin; Z79.899 Other long term (current) drug therapy; Z88.2 Allergy status to sulfonamides; Z88.8 Allergy status to other drugs, medicaments and biological substances; N41.1 Chronic prostatitis; Z86.74 Personal history of sudden cardiac arrest; Z95.5 Presence of coronary angioplasty implant and graft

== ENCOUNTER → 2022-05-28 | Outpatient (REF) | payer MEDICARE, OTHER ==
[~2022-05-28] MED LIST changes: -NS 1,000 ML IV ONE
[2022-05-28 12:12] LABS: BASO % 0.2 % (0.0-1.0); EOS # 0.2 10^3/uL (0.0-0.5); EOS % 3.6 % (0.0-3.0); HEMATOCRIT 43.4 % (42.0-52.0); HEMOGLOBIN 14.1 g/dl (13.5-17.5); LYMPH # 1.1 10^3/uL (1.5-5.0); LYMPH % 19.6 % (24.0-44.0); MEAN CORPUSCULAR HEMOGLOBIN 31.1 pg (27.0-33.0); MEAN CORPUSCULAR HGB CONC 32.5 g/dl (32.0-36.5); MEAN CORPUSCULAR VOLUME 95.8 fl (80.0-96.0); MONO # 0.5 10^3/uL (0.0-0.8); MONO % 9.4 % (2.0-8.0); NEUTROPHILS # 3.8 10^3/uL (1.5-8.5); PLATELET COUNT, AUTOMATED 203 10^3/uL (150-450); RED BLOOD COUNT 4.53 10^6/uL (4.30-6.10); WHITE BLOOD COUNT 5.6 10^3/uL (4.0-10.0)
[2022-05-28 12:55] LABS: ALBUMIN 3.6 GM/DL (3.2-5.2); ALT/SGPT 25 U/L (12-78); BILIRUBIN,TOTAL 0.6 MG/DL (0.2-1.0); BLOOD UREA NITROGEN 25 MG/DL (7-18); CALCIUM LEVEL 9.2 MG/DL (8.8-10.2); CARBON DIOXIDE LEVEL 28 MEQ/L (21-32); CHLORIDE LEVEL 109 MEQ/L (98-107); CHOLESTEROL LEVEL 133 MG/DL (<200); CHOLESTEROL RISK RATIO 2.333 (<5); CREATININE FOR GFR 1.02 MG/DL (0.70-1.30); GLOMERULAR FILTRATION RATE > 60.0 (>49); GLUCOSE, FASTING 96 MG/DL (70-100); HDL CHOLESTEROL 57 MG/DL (>40); LDL CHOLESTEROL 66 MG/DL (<100); MAGNESIUM LEVEL 2.1 MG/DL (1.8-2.4); NON-HDL-C 76 MG/DL; POTASSIUM SERUM 4.2 MEQ/L (3.5-5.1); SODIUM LEVEL 140 MEQ/L (136-145); TOTAL PROTEIN 6.3 GM/DL (6.4-8.2); TRIGLYCERIDES LEVEL 50 MG/DL (<150)
== END ==
LOC: M SFHCCLAY 08:19
PROVIDERS: ATTEND Family Medicine
DX: E78.2 Mixed hyperlipidemia (principal); I25.10 Atherosclerotic heart disease of native coronary artery without angina pectoris; R97.20 Elevated prostate specific antigen [PSA]

== ENCOUNTER → 2022-05-28 | Outpatient (REF) | payer MEDICARE, OTHER | LOC: M LABDRAWC 12:20 | PROVIDERS: ATTEND Physician Assistant | DX: R97.20 Elevated prostate specific antigen [PSA] (principal) ==

== ENCOUNTER → 2023-05-28 | Outpatient (REF) | payer MEDICARE, OTHER ==
[~2023-05-28] MED LIST changes: +CLOP75TA99 PO; -PLAV1TAB2 PO
[2023-05-28 12:29] LABS: BASO % 0.2 % (0.0-1.0); EOS # 0.1 10^3/uL (0.0-0.5); EOS % 1.8 % (0.0-3.0); HEMATOCRIT 43.6 % (42.0-52.0); LYMPH # 1.4 10^3/uL (1.5-5.0); LYMPH % 25.2 % (24.0-44.0); MEAN CORPUSCULAR HGB CONC 32.1 g/dl (32.0-36.5); MEAN CORPUSCULAR VOLUME 96.5 fl (80.0-96.0); MONO # 0.5 10^3/uL (0.0-0.8); MONO % 8.1 % (2.0-8.0); NEUTROPHILS # 3.6 10^3/uL (1.5-8.5); NEUTROPHILS % 64.3 % (36.0-66.0); PLATELET COUNT, AUTOMATED 200 10^3/uL (150-450); RED BLOOD COUNT 4.52 10^6/uL (4.30-6.10); WHITE BLOOD COUNT 5.6 10^3/uL (4.0-10.0)
[2023-05-28 13:20] LABS: ALBUMIN 3.7 G/DL (3.2-5.2); ALKALINE PHOSPHATASE 67 U/L (46-116); ALT/SGPT 21 U/L (7.0-40); AST/SGOT 14 U/L (<34); BILIRUBIN,TOTAL 0.8 MG/DL (0.3-1.2); BLOOD UREA NITROGEN 21 MG/DL (9-23); CALCIUM LEVEL 9.3 MG/DL (8.3-10.6); CARBON DIOXIDE LEVEL 31 MMOL/L (20-31); CHLORIDE LEVEL 108 MMOL/L (98-107); CHOLESTEROL LEVEL 125 MG/DL (<200); CHOLESTEROL RISK RATIO 2.36 (<5); CREATININE FOR GFR 0.95 MG/DL (0.70-1.30); GLOMERULAR FILTRATION RATE > 60.0 (>42); GLUCOSE, FASTING 96 MG/DL (74-106); HDL CHOLESTEROL 52.9 MG/DL (>40); LDL CHOLESTEROL 62.3 MG/DL (<100); NON-HDL-C 72.1 MG/DL; POTASSIUM SERUM 4.6 MMOL/L (3.5-5.1); SODIUM LEVEL 143 MMOL/L (136-145); TOTAL PROTEIN 6.1 G/DL (5.7-8.2); TRIGLYCERIDES LEVEL 49 MG/DL (<150)
== END ==
LOC: M SFHCCLAY 08:24
PROVIDERS: ATTEND Family Medicine
DX: I25.10 Atherosclerotic heart disease of native coronary artery without angina pectoris (principal); E78.2 Mixed hyperlipidemia

== ENCOUNTER → 2023-07-17 | Outpatient (REF) | payer MEDICARE, OTHER | LOC: M LABDRAWC 11:12 | PROVIDERS: ATTEND Urology | DX: R97.20 Elevated prostate specific antigen [PSA] (principal) ==

== ENCOUNTER → 2024-06-10 | Outpatient (REF) | payer MEDICARE, OTHER ==
[~2024-06-10] MED LIST changes: -ASPI-161 PO; +ASPI-615 PO
[2024-06-10 12:17] LABS: HEMATOCRIT 42.2 % (42.0-52.0); HEMOGLOBIN 13.8 g/dl (13.5-17.5); MEAN CORPUSCULAR HEMOGLOBIN 31.4 pg (27.0-33.0); MEAN CORPUSCULAR HGB CONC 32.7 g/dl (32.0-36.5); MEAN CORPUSCULAR VOLUME 95.9 fl (80.0-96.0); PLATELET COUNT, AUTOMATED 193 10^3/uL (150-450); WHITE BLOOD COUNT 5.2 10^3/uL (4.0-10.0)
[2024-06-10 12:21] LABS: ALBUMIN 3.5 G/DL (3.2-5.2); ALKALINE PHOSPHATASE 68 U/L (46-116); ALT/SGPT 25 U/L (7.0-40); AST/SGOT 19 U/L (<34); BILIRUBIN,TOTAL 0.6 MG/DL (0.3-1.2); BLOOD UREA NITROGEN 21 MG/DL (9-23); CALCIUM LEVEL 8.9 MG/DL (8.3-10.6); CARBON DIOXIDE LEVEL 30 MMOL/L (20-31); CHLORIDE LEVEL 111 MMOL/L (98-107); CHOLESTEROL LEVEL 129 MG/DL (<200); CHOLESTEROL RISK RATIO 2.91 (<5); CREATININE FOR GFR 0.91 MG/DL (0.70-1.30); GLOMERULAR FILTRATION RATE > 60.0 (>42); GLUCOSE, FASTING 96 MG/DL (74-106); HDL CHOLESTEROL 44.2 MG/DL (>40); NON-HDL-C 84.8 MG/DL; POTASSIUM SERUM 4.9 MMOL/L (3.5-5.1); SODIUM LEVEL 143 MMOL/L (136-145); TOTAL PROTEIN 5.9 G/DL (5.7-8.2); TRIGLYCERIDES LEVEL 49 MG/DL (<150)
== END ==
LOC: M SFHCCLAY 08:04
PROVIDERS: ATTEND Family Medicine
DX: I25.10 Atherosclerotic heart disease of native coronary artery without angina pectoris (principal); E78.2 Mixed hyperlipidemia

== ENCOUNTER → 2024-07-21 | Outpatient (REF) | payer MEDICARE, OTHER | LOC: M LABDRAWC 11:06 | PROVIDERS: ATTEND Urology | DX: R97.20 Elevated prostate specific antigen [PSA] (principal) ==

== ENCOUNTER → 2025-02-01 | Outpatient (REF) | payer MEDICARE, OTHER ==
[2025-02-01 15:25] LABS: CHOLESTEROL RISK RATIO 2.72 (<5); HDL CHOLESTEROL 48.8 MG/DL (>40); LDL CHOLESTEROL 71.4 MG/DL (<100); NON-HDL-C 84.2 MG/DL
== END ==
LOC: M LABDRAWC 13:30 → M LABDRWAD 13:30
PROVIDERS: ATTEND Family Medicine
DX: I25.10 Atherosclerotic heart disease of native coronary artery without angina pectoris (principal)

== ENCOUNTER → 2025-06-14 | Outpatient (REF) | payer MEDICARE, OTHER ==
[2025-06-14 12:41] LABS: PLATELET COUNT, AUTOMATED 203 10^3/uL (150-450)
[2025-06-14 13:06] LABS: ALT/SGPT 35.0 U/L (7.0-40); AST/SGOT 28.0 U/L (<34); CALCIUM LEVEL 9.4 MG/DL (8.3-10.6); CARBON DIOXIDE LEVEL 30.0 MMOL/L (20-31); CHLORIDE LEVEL 107.0 MMOL/L (98-107); CHOLESTEROL LEVEL 134.0 MG/DL (<200); CHOLESTEROL RISK RATIO 2.57 (<5); CREATININE FOR GFR 0.93 MG/DL (0.70-1.30); GLOMERULAR FILTRATION RATE 87.2 (>42); LDL CHOLESTEROL 70.9 MG/DL (<100); MAGNESIUM LEVEL 2.1 MG/DL (1.8-2.4); NON-HDL-C 81.9 MG/DL; POTASSIUM SERUM 4.5 MMOL/L (3.5-5.1); SODIUM LEVEL 145.0 MMOL/L (136-145); TRIGLYCERIDES LEVEL 55.0 MG/DL (<150)
== END ==
LOC: M SFHCCLAY 07:58
PROVIDERS: ATTEND Family Medicine
DX: I25.10 Atherosclerotic heart disease of native coronary artery without angina pectoris (principal); E78.2 Mixed hyperlipidemia

== ENCOUNTER → 2025-06-21 | Outpatient (CLI) | payer MEDICARE, OTHER | LOC: M CLY 08:27 | PROVIDERS: ATTEND Family Medicine | DX: M21.42 Flat foot [pes planus] (acquired), left foot (principal); M25.572 Pain in left ankle and joints of left foot; Z53.9 Procedure and treatment not carried out, unspecified reason ==

== ENCOUNTER → 2025-06-21 | Outpatient (CLI) | payer MEDICARE, OTHER | LOC: M CLY 09:01 | PROVIDERS: ATTEND Family Medicine | DX: M21.42 Flat foot [pes planus] (acquired), left foot (principal); M25.572 Pain in left ankle and joints of left foot ==

== ENCOUNTER → 2025-07-14 | Outpatient (CLI) | payer MEDICARE, OTHER | LOC: M PLAIMG 08:47 | PROVIDERS: ATTEND Internal Medicine | DX: I25.10 Atherosclerotic heart disease of native coronary artery without angina pectoris (principal) ==

== ENCOUNTER → 2025-08-04 | Outpatient (REF) | payer MEDICARE, OTHER ==
[2025-08-04 14:42] LABS: ALT/SGPT 29.0 U/L (7.0-40); AST/SGOT 20.0 U/L (<34); CHOLESTEROL LEVEL 125.0 MG/DL (<200); CHOLESTEROL RISK RATIO 2.79 (<5); LDL CHOLESTEROL 68.9 MG/DL (<100); NON-HDL-C 80.3 MG/DL; TRIGLYCERIDES LEVEL 57.0 MG/DL (<150)
[2025-08-04 14:51] LABS: CPK CREATINE PHOSPHOKINASE 83.0 U/L (46-171)
== END ==
LOC: M LABDRAWC 12:42
PROVIDERS: ATTEND Physician Assistant
DX: E78.2 Mixed hyperlipidemia (principal); I25.10 Atherosclerotic heart disease of native coronary artery without angina pectoris; Z12.5 Encounter for screening for malignant neoplasm of prostate
CPT/HCPCS: 36415; 80061; 82550; 84450; 84460; G0103

== ENCOUNTER → 2025-08-04 | Outpatient (REF) | payer MEDICARE, OTHER | LOC: M LABDRAWC 12:46 | PROVIDERS: ATTEND Urology | DX: Z12.5 Encounter for screening for malignant neoplasm of prostate (principal) ==